=== PATIENT | female | born 1960 | race Hispanic/Latino ===

== ENCOUNTER 2017-06-19 10:21 | Outpatient (CLI) | payer MEDICARE ==
--- NOTE | 2017-06-20 09:14 | Mammography Report ---
BILATERAL MAMMOGRAM: FINDINGS: There are scattered fibroglandular densities (approximately 25%-50% glandular). No mass, distortion, suspicious calcification, or skin change is seen. CAD was utilized. IMPRESSION: Negative mammogram. There is no mammographic evidence of malignancy. RECOMMENDATION: Follow-up per ACS guidelines. BI-RADS CATEGORY: 1 = Negative ACR BI-RADS MAMMOGRAPHIC CODES: 0 = Needs additional imaging evaluation; 1 = Negative; 2 = Benign; 3 = Probably benign; 4 = Suspicious; 5 = Malignant; 6 = Known biopsy-proven malignancy COMMENT: 1. Dense breast tissue, i.e., adenosis, fibrocystic changes, etc., may obscure an underlying neoplasm. 2. Approximately 10% of cancers are not detected with mammography. 3. A negative mammography report should not delay biopsy if a clinically suspicious mass is present. COMMENT: Patient follow-up letters are generated in [employer].
== END 2017-06-19 10:22 | disposition home or self-care (01) ==
LOC: SPVWC 10:21
PROVIDERS: ATTEND Hospitalist
DX: Z12.31 Encounter for screening mammogram for malignant neoplasm of breast (principal)
CPT/HCPCS: 77067

== ENCOUNTER 2020-01-21 23:41 | Inpatient (IN) | payer MEDICARE ==
[2020-01-22 02:34] LABS: Basophils # (Auto) 0.1 K/mm3 (0.0-0.1); Basophils % (Auto) 0.5 % (0.0-1.8); Eosinophils # (Auto) 0.2 K/mm3 (0.0-0.4); Hematocrit 42.7 % (30.3-42.9); Lymphocytes # (Auto) 2.8 K/mm3 (1.2-5.4); Lymphocytes % (Auto) 19.1 % (13.4-35.0); Mean Corpuscular HGB Conc 35 % (30-34); Mean Corpuscular Volume 100 fl (79-97); Monocytes # (Auto) 1.2 K/mm3 (0.0-0.8); Monocytes % (Auto) 8.2 % (0.0-7.3); Platelet Count 188 K/mm3 (140-440); Red Blood Count 4.27 M/mm3 (3.65-5.03); Red Cell Distribution Width 13.3 % (13.2-15.2)
[2020-01-22 02:46] LABS: Alanine Aminotransferase 40 units/L (7-56); Albumin 3.9 g/dL (3.9-5); Blood Urea Nitrogen 17 mg/dL (7-17); Hemolysis Index 9
[2020-01-22 02:48] LABS: BUN/Creatinine Ratio 28
[2020-01-22] MEDS ORDERED: HYDROmorphone 1 MG/1 ML INJ IV ONE ×2 (03:05→05:18)
[2020-01-22] MEDS ORDERED: ONDANSETRON 4 MG/2 ML INJ IV ONE (03:05)
[2020-01-22] MEDS ORDERED: SODIUM CHLORIDE 0.9% 1000 ML 1,000 ML IV ONE (03:05)
--- NOTE | 2020-01-22 03:07 | Emergency Department Report ---
ED General Adult HPI - General Chief complaint: Abdominal Pain Stated complaint: RIGHT FLANK PAIN PUI?: No Time Seen by Provider: 01/22/20 02:57 Source: patient, EMS ( EMS documentation not available at time of chart dict ation ), RN notes reviewed, old records reviewed Mode of arrival: Stretcher Limitations: No Limitations - History of Present Illness Initial comments: The patient was evaluated in the emergency department for symptoms described in the history of present illness. He/she was evaluated in the context of the [facility] COVID-19 pandemic, which necessitated consideration that the patient might be at risk for infection with the virus that causes COVID-19. Institutional protocols and algorithms that pertain to the evaluation of patients at risk for COVID-19 are in a state of rapid change based on information released by regulatory bodies including the CDC and federal and state organizations. These policies and algorithms were followed during the patient's care in the emergency department. Please note that these policies, procedures and recommendations changed on a rapid basis. Patient is a 59-year-old female who is not known to myself previously. She is brought to the hospital by emergency medical services for complaint of nontraumatic abdominal pain. The abdominal pain has been present for appro ximately 6 to 7 hours. Started supraumbilically, then radiated to the right flank, and right back. Positive nausea and vomiting. No headache, neck pain, chest pain. No shortness of breath. No loss of taste or smell. No Covid symptoms. No dysuria. Positive diarrhea. No myalgias. No focal extremity weakness/numbness. She is not had pain like this in the past. Reports a distant history of fibroid surgery. -: Gradual, hour(s) Location: abdomen Radiation: back Quality: aching Consistency: constant Improves with: none Worsens with: none - Related Data Home Medications Medication Instructions Recorded Confirmed Last Taken Amlodipine Besylate 5 mg PO DAILY 07/15/15 07/15/15 07/15/15 Simvastatin 20 mg PO QPM 07/15/15 07/15/15 07/15/15 Venlafaxine HCl 75 mg PO DAILY 07/15/15 07/15/15 07/15/15 Previous Rx's Medication Instructions Recorded Last Taken Type HYDROcodone/APAP 10-325 [[place] 1 each PO Q6HR PRN #20 tablet 07/16/15 Unknown Rx 10-325 mg TAB] Ondansetron [Zofran ODT TAB] 8 mg PO Q8HR PRN #20 tab.rapdis 07/16/15 Unknown Rx Allergies Allergy/AdvReac Type Severity Reaction Status Date / Time No Known Allergies Allergy Unverified 07/15/15 22:25 ED Review of Systems ROS: Stated complaint: RIGHT FLANK PAIN Other details as noted in HPI Constitutional: denies: fever Eyes: denies: eye discharge ENT: denies: epistaxis Respiratory: denies: cough Cardiovascular: denies: chest pain Gastrointestinal: abdominal pain, nausea, vomiting, diarrhea Genitourinary: denies: dysuria Musculoskeletal: back pain Neurological: weakness Psychiatric: anxiety Hematological/Lymphatic: denies: easy bleeding ED Past Medical Hx - Past Medical History Previous Medical History?: Yes Hx Hypertension: Yes Hx Arthritis: Yes Hx COPD: Yes Additional medical history: fibromyalgia - Surgical History Past Surgical History?: Yes Additional Surgical History: Laparoscopic hysterectomy - Social History Smoking Status: Current Every Day Smoker Substance Use Type: None - Medications Home Medications: Home Medications Medication Instructions Recorded Confirmed Last Taken Type Amlodipine Besylate 5 mg PO DAILY 07/15/15 07/15/15 07/15/15 History Simvastatin 20 mg PO QPM 07/15/15 07/15/15 07/15/15 History Venlafaxine HCl 75 mg PO DAILY 07/15/15 07/15/15 07/15/15 History HYDROcodone/APAP 10-325 [[place] 1 each PO Q6HR PRN #20 tablet 07/16/15 Unknown Rx 10-325 mg TAB] Ondansetron [Zofran ODT TAB] 8 mg PO Q8HR PRN #20 tab.rapdis 07/16/15 Unknown Rx ED Physical Exam - General Limitations: No Limitations General appearance: alert, anxious, obese - Head Head exam: Present: atraumatic, normocephalic - Eye Eye exam: Present: normal appearance, EOMI. Absent: nystagmus - ENT ENT exam: Present: normal exam, normal orophraynx, mucous membranes moist, normal external ear exam - Neck Neck exam: Present: normal inspection, full ROM. Absent: tenderness, meningismus - Respiratory Respiratory exam: Present: normal lung sounds bilaterally. Absent: respiratory distress, wheezes, rales, rhonchi, stridor, decreased breath sounds - Cardiovascular Cardiovascular Exam: Present: regular rate, normal rhythm, normal heart sounds. Absent: bradycardia, tachycardia, irregular rhythm, systolic murmur, diastolic murmur, rubs, gallop - GI/Abdominal GI/Abdominal exam: Present: soft, tenderness, other (Right upper quadrant, epigastric tenderness. Right flank tenderness.). Absent: distended, guarding, rebound, rigid, pulsatile mass - Extremities Exam Extremities exam: Present: normal inspection, full ROM, other (2+ pulses noted in the bilateral upper and lower extremities. There is no palpable cord. negative Homans sign. Muscular compartments are soft. The pelvis is stable.). Absent: pedal edema, calf tenderness - Back Exam Back exam: Present: normal inspection. Absent: tenderness, CVA tenderness (R), CVA tenderness (L), paraspinal tenderness, vertebral tenderness - Neurological Exam Neurological exam: Present: alert, normal gait, other (No facial droop. Tongue midline. Extraocular movements intact bilaterally. Facial sensation intact to light touch in V1, V2, V3 distribution bilaterally. 5 and a 5 strength in 4 extremities. Sensation intact to light touch in 4 extremities.). Absent: motor sensory deficit - Psychiatric Psychiatric exam: Present: anxious - Skin Skin exam: Present: warm, dry, intact, normal color. Absent: rash ED Course Vital Signs 01/22/20 01/22/20 01:03 05:13 Temperature 98.1 F Pulse Rate 70 71 Respiratory 18 Rate Blood Pressure 172/65 Blood Pressure 165/82 [right arm] O2 Sat by Pulse 96 95 Oximetry - Reevaluation(s) Reevaluation #1: 01/22/20 03:25 Differential diagnosis, including but not limited to: Colitis, diverticulitis, renal colic, appendicitis Assessment and plan: 59-year-old female with nontraumatic right-sided abdominal pain that radiates to the back. Treat symptoms, obtain urinalysis, EKG, appropriate laboratory studies, CT scan of the abdomen pelvis, and reassess. Do not clinically suspect Covid. Have discussed plan of care with the patient, who is amenable to this plan of care. Reevaluation #2: 01/22/20 05:16 CT scan of the abdomen pelvis shows the following findings: IMPRESSION: 1. Distal small bowel findings suggestive of enteritis. Most of the abnormal bowel loops localized to the right mid abdomen. 2. Right renal finding as outlined above, most likely representing an infarct. One other differential consideration would be polynephritis; however, there is no associated inflammatory stranding and the finding is isolated. If there is high clinical concern, recommend follow-up urinalysis. Signer Name: Derrick Zacarias MD Signed: 01/22/2020 4:07 AM Workstation Name: [id number] Transcribed By: SUZE Dictated By: Derrick Zacarias MD Electronically Authenticated By: Derrick Zacarias MD Signed Date/Time: 01/22/20406 DD/ 1 TD/TT: Urinalysis is not consistent with urinary tract infection. Patient still is fairly tender. Given white count of 14,000, ambiguous clinical findings, will cover empirically with antibiotics. I contacted the interpreting radiologist, Dr. Zacarias, and and he advises that the infarct appears to be chronic. He also advises that CT scan is a better imaging modality than ultrasound. It is my opinion that given tenderness, leukocytosis, clinical ambiguity, nathan bauer would benefit from hospitalization for serial abdominal exams, pain control, nausea control, empiric antibiotic therapy, and further inpatient investigation to evaluate for possible A. fib, arterial thrombi, and potential hypercoagulable state. I have discussed this plan of care with the patient, and she is amenable to hospitalization. Patient not in A. fib at this now. There is a suggestion that the infarct is remote. We will therefore withhold anticoagulation at this time. Hospital physician is paged to arrange admission. 01/22/20 05:27 Dr Brooks to admit inpatient team to follow up on gall bladder ultrasound 01/22/20 05:34 01/22/20 05:34 ED Medical Decision Making - Lab Data Result diagrams: 01/22/20 01:38 01/22/20 01:38 Vital Signs 01/22/20 01:03 Temperature 98.1 F Pulse Rate 70 Respiratory 18 Rate Blood Pressure 172/65 O2 Sat by Pulse 96 Oximetry Lab Results 01/22/20 01/22/20 Range/Units 01:38 01:38 WBC 14.7 H (4.5-11.0) K/mm3 RBC 4.27 (3.65-5.03) M/mm3 Hgb 15.0 H (10.1-14.3) gm/dl Hct 42.7 (30.3-42.9) % MCV 100 H (79-97) fl MCH 35 H (28-32) pg MCHC 35 H (30-34) % RDW 13.3 (13.2-15.2) % Plt Count 188 (140-440) K/mm3 Lymph % (Auto) 19.1 (13.4-35.0) % Knott % (Auto) 8.2 H (0.0-7.3) % Eos % (Auto) 1.0 (0.0-4.3) % Baso % (Auto) 0.5 (0.0-1.8) % Lymph # (Auto) 2.8 (1.2-5.4) K/mm3 Knott # (Auto) 1.2 H (0.0-0.8) K/mm3 Eos # (Auto) 0.2 (0.0-0.4) K/mm3 Baso # (Auto) 0.1 (0.0-0.1) K/mm3 Seg Neutrophils % 71.2 H (40.0-70.0) % Seg Neutrophils # 10.5 H (1.8-7.7) K/mm3 Sodium 142 (137-145) mmol/L Potassium 3.7 (3.6-5.0) mmol/L Chloride 105.2 (98-107) mmol/L Carbon Dioxide 24 (22-30) mmol/L Anion Gap 17 mmol/L BUN 17 (7-17) mg/dL Creatinine 0.6 (0.6-1.2) mg/dL Estimated GFR > 60 ml/min BUN/Creatinine Ratio 28 % Glucose 142 H (65-100) mg/dL Calcium 9.0 (8.4-10.2) mg/dL Total Bilirubin 0.50 (0.1-1.2) mg/dL AST 32 (5-40) units/L ALT 40 (7-56) units/L Alkaline Phosphatase 157 H (35-129) units/L Total Protein 6.5 (6.3-8.2) g/dL Albumin 3.9 (3.9-5) g/dL Albumin/Globulin Ratio 1.5 % Lipase 16 (13-60) units/L - EKG Data -: EKG Interpreted by Me - EKG Data When compared to previous EKG there are: previous EKG unavailable 01/22/20 03:45 Sinus rhythm, 70 bpm, normal axis, motion artifact, poor R wave progression, DC interval prolonged, abnormal EKG, not a STEMI. - Radiology Data Radiology results: pending, report reviewed, image reviewed Print Report Referring Physician: BARBIE RICHARDSON Patient Name: GRAEME MORENO Date of : 1960 Sex: Female Report Date: 2020-01-22 Report Status: Finalized Findings [facility] [address] [place] [address] Cat Scan Report Signed Patient: GRAEME MORENO MR#: [id number] : 1960 Acct:[id number] Age/Sex: 59 / F ADM Date: 01/21/20 Loc: ED Attending Dr: Ordering Physician: BARBIE RICHARDSON MD Date of Service: 01/22/20 Procedure(s): CT abdomen pelvis w con Accession Number(s): [id number] cc: BARBIE RICHARDSON MD CT ABDOMEN AND PELVIS WITH CONTRAST HISTORY: rlq abd pain radiates to back, n/v. COMPARISON: CT abdomen/pelvis from 07/15/2015 TECHNIQUE: CT images of the abdomen and pelvis were obtained following administration of intravenous contrast. All CT scans at this location are performed using CT dose reduction for ALARA by means of automated exposure control. CONTRAST: 100 ml of intravenous contrast administered. FINDINGS: Lungs/bones: Lung bases are clear. There are degenerative changes in the spine and pelvis with no acute osseous abnormality. Bilateral SI joint fixation is intact without complication. Abdomen/pelvis: There is a tiny cyst in the liver. Liver is otherwise unremarkable the gallblad felecia, spleen, pancreas, adrenals, left kidney, and proximal GI tract appear unremarkable. There is a wedge-shaped area of low attenuation in the right kidney in the midpole region with otherwise unremarkable appearance of the right kidney. Urinary bladder is mostly collapsed. Uterus is surgically absent. No pelvic free fluid. There is colonic diverticulosis with no acute inflammatory change identified. The appendix and terminal ileum appear normal. There is mild circumferential wall thickening and fluid-filled appearance of the distal small bowel leading up to the terminal ileum and the proximal colon is filled with liquid stool. IMPRESSION: 1. Distal small bowel findings suggestive of enteritis. Most of the abnormal bowel loops localized to the right mid abdomen. 2. Right renal finding as outlined above, most likely representing an infarct. One other differential consideration would be polynephritis; however, there is no associated inflammatory stranding and the finding is isolated. If there is high clinical concern, recommend follow-up urinalysis. Signer Name: Derrick Zacarias MD Signed: 01/22/2020 4:07 AM Workstation Name: [id number] Transcribed By: SUZE Dictated By: Derrick Zacarias MD Electronically Authenticated By: Derrick Zacarias MD Signed Date/Time: 01/22/20406 DD/ 1 TD/TT: Critical care attestation.: If time is entered above; I have spent that time in minutes in the direct care of this critically ill patient, excluding procedure time. ED Disposition Clinical Impression: Flank pain, Renal infarct Disposition: OP ADMIT IP TO THIS HOSP Is pt being admited?: Yes Does the pt Need Aspirin: No Condition: Good Instructions: Abdominal Pain (ED) Referrals: PRIMARY CARE, [Primary Care Provider] - 3-5 Days
--- NOTE | 2020-01-22 04:11 | Cat Scan Report ---
CT ABDOMEN AND PELVIS WITH CONTRAST HISTORY: rlq abd pain radiates to back, n/v. COMPARISON: CT abdomen/pelvis from 07/15/2015 TECHNIQUE: CT images of the abdomen and pelvis were obtained following administration of intravenous contrast. All CT scans at this location are performed using CT dose reduction for ALARA by means of automated exposure control. CONTRAST: 100 ml of intravenous contrast administered. FINDINGS: Lungs/bones: Lung bases are clear. There are degenerative changes in the spine and pelvis with no ac kyaw osseous abnormality. Bilateral SI joint fixation is intact without complication. Abdomen/pelvis: There is a tiny cyst in the liver. Liver is otherwise unremarkable the gallbladder, spleen, pancreas, adrenals, left kidney, and proximal GI tract appear unremarkable. There is a wedge-shaped area of low attenuation in the right kidney in the midpole region with otherw ise unremarkable appearance of the right kidney. Urinary bladder is mostly collapsed. Uterus is surgically absent. No pelvic free fluid. There is colo rodrigo diverticulosis with no acute inflammatory change identified. The appendix and terminal ileum appe ar normal. There is mild circumferential wall thickening and fluid-filled appearance of the distal small bowel l eading up to the terminal ileum and the proximal colon is filled with liquid stool. IMPRESSION: 1. Distal small bowel findings suggestive of enteritis. Most of the abnormal bowel loops localized to the right mid abdomen. 2. Right renal finding as outlined above, most likely representing an infarct. One other differential consideration would be polynephritis; however, there is no associated inflammatory stranding and the finding is isolated. If there is high clinical concern, recommend follow-up urinalysis. Signer Name: Derrick Zacarias MD Signed: 01/22/2020 4:07 AM Workstation Name: [id number]
[2020-01-22 04:53] LABS: Bacteria,Urine 1+ /HPF (Negative); Bilirubin,Urine NEG (Negative); Blood,Urine NEG (Negative); Color,Urine Yellow (Yellow); Mucus,Urine 1+ /HPF; Urobilinogen,Urine < 2.0 mg/dL (<2.0)
[2020-01-22] MEDS ORDERED: ACETAMINOPHEN 325 MG TAB PO PRN (05:47)
[2020-01-22] MEDS ORDERED: MAGNESIUM HYDROXIDE (MOM) ORAL LIQD UDC PO PRN (05:47)
--- NOTE | 2020-01-22 06:39 | History and Physical Report ---
History of Present Illness Date of examination: 01/22/20 Date of admission: 01/22/20 05:28 Chief complaint: Abdominal pain Nausea and Vomiting History of present illness: 59-year-old white female with known history of hypertension, hyperlipidemia, COPD and fibromyalgia presenting to the emergency room today complaining of generalized abdominal pain. Pain started about 6 to 8 hours prior to reporting to the emergency room. Pain is said to be more in the right upper quadrant radiating to the right flank and the back. She has had associated nausea and vomiting and also had an episode of diarrhea. She has had multiple episodes of nausea and vomiting today. She denies any fever or chills, no chest pain or shortness of breath, no headache or dizziness, no hematuria or dysuria, denies any sick contacts and no recent travel. Denies any contact with anyone with COVID-19. Work-up in the emergency room today reveals leukocytosis of 14. CT of the abdomen and pelvis was remarkable for right renal infarction. Patient has been placed on IV fluid and IV analgesic medication with improvement. Patient is being admitted for intractable nausea and vomiting and abdominal pain. Past History Past Medical History: arthritis, COPD, hypertension, hyperlipidemia, other (Fibromyalgia) Past Surgical History: hysterectomy (Laparoscopic hysterectomy) Social history: smoking (Current daily smoker) Family history: no significant family history Medications and Allergies Allergies Allergy/AdvReac Type Severity Reaction Status Date / Time No Known Allergies Allergy Unverified 07/15/15 22:25 Home Medications Medication Instructions Recorded Confirmed Last Taken Type Amlodipine Besylate 5 mg PO DAILY 07/15/15 07/15/15 07/15/15 History Simvastatin 20 mg PO QPM 07/15/15 07/15/15 07/15/15 History Venlafaxine HCl 75 mg PO DAILY 07/15/15 07/15/15 07/15/15 History HYDROcodone/APAP 10-325 [[place] 1 each PO Q6HR PRN #20 tablet 07/16/15 Unknown Rx 10-325 mg TAB] Ondansetron [Zofran ODT TAB] 8 mg PO Q8HR PRN #20 tab.rapdis 07/16/15 Unknown Rx Active Meds: Active Medications Acetaminophen (Tylenol) 650 mg PO Q4H PRN PRN Reason: Pain MILD(1-3)/Fever >100.5/RUCKER Enoxaparin Sodium (Enoxaparin) 40 mg SUB-Q QDAY@2200 ANDRA; Protocol Hydromorphone HCl (Dilaudid) 0.5 mg IV Q3H PRN PRN Reason: Pain , Severe (7-10) Levofloxacin/Dextrose (Levaquin 750mg/150ml) 750 mg in 150 mls @ 100 mls/hr IV ONCE ONE; Protocol Stop: 01/22/20 06:47 Sodium Chloride (Nacl 0.9% 1000 Ml) 1,000 mls @ 125 mls/hr IV DIRECT ANDRA Magnesium Hydroxide (Milk Of Magnesia) 30 ml PO Q4H PRN PRN Reason: Constipation Ondansetron HCl (Zofran) 4 mg IV Q8H PRN PRN Reason: Nausea And Vomiting Sodium Chloride (Sodium Chloride Flush Syringe 10 Ml) 10 ml IV BID ANDRA Sodium Chloride (Sodium Chloride Flush Syringe 10 Ml) 10 ml IV PRN PRN PRN Reason: LINE FLUSH Review of Systems Constitutional: no fever, no chills Ears, nose, mouth and throat: no nasal congestion, no sore throat Cardiovascular: no chest pain, no palpitations Respiratory: no cough, no shortness of breath Gastrointestinal: abdominal pain, nausea, vomiting, diarrhea, no hematemesis, no coffee ground emesis, no BRBPR, no melena Genitourinary Female: no flank pain, no dysuria, no hematuria Musculoskeletal: no neck pain, no low back pain Integumentary: no rash, no pruritis Neurological: no headaches, no confusion Psychiatric: no anxiety, no depression Exam - Constitutional Vitals: Temp Pulse Resp BP Pulse Ox 98.1 F 71 18 165/82 95 01/22/20 01:03 01/22/20 05:13 01/22/20 01:03 01/22/20 05:13 01/22/20 05:13 General appearance: Present: no acute distress, well-nourished - EENT Eyes: Present: PERRL, EOM intact. Absent: scleral icterus ENT: hearing intact, clear oral mucosa, dentition normal - Neck Neck: Present: supple, normal ROM - Respiratory Respiratory effort: normal Respiratory: bilateral: CTA - Cardiovascular Rhythm: regular Heart Sounds: Present: S1 & S2. Absent: gallop, systolic murmur, diastolic murmur, rub - Extremities Extremities: no ischemia, pulses intact, pulses symmetrical, No edema, Full ROM - Abdominal General gastrointestinal: Present: soft, tender (Mild tenderness in the epigastric region and right upper quadrant, no rebound tenderness), non-disten ded, normal bowel sounds. Absent: mass - Integumentary Integumentary: Present: clear, warm, dry - Musculoskeletal Musculoskeletal: strength equal bilaterally - Psychiatric Psychiatric: appropriate mood/affect, intact judgment & insight, memory intact, cooperative - Neurologic Neurologic: CNII-XII intact, no focal deficits, moves all extremities Results - Labs CBC & Chem 7: 01/22/20 21:17 01/22/20 01:38 Labs: Abnormal lab results 01/22/20 01/22/20 Range/Units 01:38 01:38 WBC 14.7 H (4.5-11.0) K/mm3 Hgb 15.0 H (10.1-14.3) gm/dl MCV 100 H (79-97) fl MCH 35 H (28-32) pg MCHC 35 H (30-34) % Bertie % (Auto) 8.2 H (0.0-7.3) % Bertie # (Auto) 1.2 H (0.0-0.8) K/mm3 Seg Neutrophils % 71.2 H (40.0-70.0) % Seg Neutrophils # 10.5 H (1.8-7.7) K/mm3 Glucose 142 H (65-100) mg/dL Alkaline Phosphatase 157 H (35-129) units/L Assessment and Plan - Patient Problems (1) Abdominal pain Current Visit: Yes Status: Acute Plan to address problem: Unclear etiology is unknown. Patient has been placed on IV analgesic medication. CT scan of the abdomen and pelvis however reveals right renal infarction. Patient awaits ultrasound of the gallbladder. (2) Hypertension Current Visit: Yes Status: Acute Plan to address problem: We will resume routine home medications once reconciled. Will monitor vital signs closely. (3) Renal infarct Current Visit: Yes Status: Acute Plan to address problem: If no improvement ,May require follow-up with radiological tests. Patient may benefit from vascular surgery/nephrology evaluation and recommendation. (4) Leukocytosis Current Visit: Yes Status: Acute Plan to address problem: Possibly reactive however patient is being covered with empiric IV antibiotics. (5) DVT prophylaxis Current Visit: Yes Status: Acute Plan to address problem: Patient placed on subcutaneous Lovenox. (6) Full code status Current Visit: Yes Status: Acute
[2020-01-22] MEDS ORDERED: SODIUM CHLORIDE 0.9% 1000 ML 1,000 ML ONE ×2 (06:40→20:11)
--- NOTE | 2020-01-22 07:27 | Ultrasound Report ---
LIMITED RUQ ABDOMINAL ULTRASOUND INDICATION: ruq pain. COMPARISON: CT abdomen/pelvis from today. FINDINGS: Pancreas: Visualized portions show no significant abnormality. Abdominal Aorta: No significant abnormality. IVC: No significant abnormality. Liver: The liver measures 17.2 cm in length. Diffusely echogenic compared to the right renal cortex. Normal hepatopedal blood flow in the main portal vein. Gallbladder: No significant abnormality. Bile ducts: No significant abnormality. Common bile duct measures 3 mm. Right kidney: No significant abnormality visualized. Please note that the probable infarction CT is n ot well visualized with ultrasound. Free fluid: None. Additional Findings: None. IMPRESSION: 1. Hepatomegaly with diffusely echogenic appearance of the liver, most commonly seen with steatosis. Signer Name: Derrick Zacarias MD Signed: 01/22/2020 7:23 AM Workstation Name: [id number]
--- NOTE | 2020-01-22 09:07 | Progress Note ---
Assessment and Plan Assessment and plan: Abdominal pain Unclear etiology is unknown. GI consultation. CT scan of the abdomen and pelvis however reveals right renal infarction. Patient awaits ultrasound of the gallbladder. Hypertension We will resume routine home medications once reconciled. Will monitor vital signs closely. Renal infarct May require follow-up with radiological exam. Nephrology consultation. Leukocytosis Possibly reactive however patient is being covered with empiric IV antibiotics. DVT prophylaxis Patient placed on subcutaneous Lovenox. Full code status History Interval history: No new issues overnight. Hospitalist Physical - Constitutional Vitals: Temp Pulse Resp BP Pulse Ox 98.6 F 71 18 154/64 90 01/22/20 07:59 01/22/20 07:59 01/22/20 07:59 01/22/20 07:59 01/22/20 07:59 General appearance: Present: no acute distress, well-nourished - EENT Eyes: Present: PERRL, EOM intact ENT: hearing intact, clear oral mucosa, dentition normal - Neck Neck: Present: supple, normal ROM - Respiratory Respiratory effort: normal Respiratory: bilateral: CTA - Cardiovascular Rhythm: regular Heart Sounds: Present: S1 & S2. Absent: gallop, rub - Extremities Extremities: no ischemia, No edema, Full ROM - Abdominal General gastrointestinal: soft, non-tender, non-distended, normal bowel sounds - Integumentary Integumentary: Present: clear, warm, dry - Neurologic Neurologic: CNII-XII intact, moves all extremities Results - Labs CBC & Chem 7: 01/22/20 01:38 01/22/20 01:38 Labs: Laboratory Last Values WBC 14.7 K/mm3 (4.5-11.0) H 01/22/20 01:38 RBC 4.27 M/mm3 (3.65-5.03) 01/22/20 01:38 Hgb 15.0 gm/dl (10.1-14.3) H 01/22/20 01:38 Hct 42.7 % (30.3-42.9) 01/22/20 01:38 MCV 100 fl (79-97) H 01/22/20 01:38 MCH 35 pg (28-32) H 01/22/20 01:38 MCHC 35 % (30-34) H 01/22/20 01:38 RDW 13.3 % (13.2-15.2) 01/22/20 01:38 Plt Count 188 K/mm3 (140-440) 01/22/20 01:38 Lymph % (Auto) 19.1 % (13.4-35.0) 01/22/20 01:38 [place] % (Auto) 8.2 % (0.0-7.3) H 01/22/20 01:38 Eos % (Auto) 1.0 % (0.0-4.3) 01/22/20 01:38 Baso % (Auto) 0.5 % (0.0-1.8) 01/22/20 01:38 Lymph # (Auto) 2.8 K/mm3 (1.2-5.4) 01/22/20 01:38 [place] # (Auto) 1.2 K/mm3 (0.0-0.8) H 01/22/20 01:38 Eos # (Auto) 0.2 K/mm3 (0.0-0.4) 01/22/20 01:38 Baso # (Auto) 0.1 K/mm3 (0.0-0.1) 01/22/20 01:38 Seg Neutrophils % 71.2 % (40.0-70.0) H 01/22/20 01:38 Seg Neutrophils # 10.5 K/mm3 (1.8-7.7) H 01/22/20 01:38 Sodium 142 mmol/L (137-145) 01/22/20 01:38 Potassium 3.7 mmol/L (3.6-5.0) 01/22/20 01:38 Chloride 105.2 mmol/L (98-107) 01/22/20 01:38 Carbon Dioxide 24 mmol/L (22-30) 01/22/20 01:38 Anion Gap 17 mmol/L 01/22/20 01:38 BUN 17 mg/dL (7-17) 01/22/20 01:38 Creatinine 0.6 mg/dL (0.6-1.2) 01/22/20 01:38 Estimated GFR > 60 ml/min 01/22/20 01:38 BUN/Creatinine Ratio 28 % 01/22/20 01:38 Glucose 142 mg/dL (65-100) H 01/22/20 01:38 Lactic Acid 1.70 mmol/L (0.7-2.0) 01/22/20 04:43 Calcium 9.0 mg/dL (8.4-10.2) 01/22/20 01:38 Magnesium 2.00 mg/dL (1.7-2.3) 01/22/20 01:38 Total Bilirubin 0.50 mg/dL (0.1-1.2) 01/22/20 01:38 AST 32 units/L (5-40) 01/22/20 01:38 ALT 40 units/L (7-56) 01/22/20 01:38 Alkaline Phosphatase 157 units/L (35-129) H 01/22/20 01:38 Total Creatine Kinase 70 units/L (30-135) 01/22/20 01:38 Total Protein 6.5 g/dL (6.3-8.2) 01/22/20 01:38 Albumin 3.9 g/dL (3.9-5) 01/22/20 01:38 Albumin/Globulin Ratio 1.5 % 01/22/20 01:38 Lipase 16 units/L (13-60) 01/22/20 01:38 Urine Color Yellow (Yellow) 01/22/20 04:37 Urine Turbidity Clear (Clear) 01/22/20 04:37 Urine pH 5.0 (5.0-7.0) 01/22/20 04:37 Ur Specific [place] 1.008 (1.003-1.030) 01/22/20 04:37 Urine Protein 30 mg/dl mg/dL (Negative) 01/22/20 04:37 Urine Glucose (UA) Neg mg/dL (Negative) 01/22/20 04:37 Urine Ketones Neg mg/dL (Negative) 01/22/20 04:37 Urine Blood Neg (Negative) 01/22/20 04:37 Urine Nitrite Neg (Negative) 01/22/20 04:37 Urine Bilirubin Neg (Negative) 01/22/20 04:37 Urine Urobilinogen < 2.0 mg/dL (<2.0) 01/22/20 04:37 Ur Leukocyte Esterase Neg (Negative) 01/22/20 04:37 Urine WBC (Auto) 2.0 /HPF (0.0-6.0) 01/22/20 04:37 Urine RBC (Auto) 5.0 /HPF (0.0-6.0) 01/22/20 04:37 U Epithel Cells (Auto) 3.0 /HPF (0-13.0) 01/22/20 04:37 Urine Bacteria (Auto) 1+ /HPF (Negative) 01/22/20 04:37 Urine Mucus 1+ /HPF 01/22/20 04:37 Microbiology: Microbiology 01/22/20 04:43 Peripheral/Venous Blood Culture - Preliminary Culture in Progress 01/22/20 04:35 Peripheral/Venous Blood Culture - Preliminary Culture in Progress Active Medications - Current Medications Current Medications: Generic Name Dose Route Start Last Admin Trade Name Freq PRN Reason Stop Dose Admin Acetaminophen 650 mg 01/22/20 05:47 Tylenol PO Q4H PRN Pain MILD(1-3)/Fever >100.5/RUCKER Enoxaparin Sodium 40 mg 01/22/20 22:00 Enoxaparin SUB-Q QDAY@2200 ANDRA Protocol Hydromorphone HCl 0.5 mg 01/22/20 05:47 Dilaudid IV Q3H PRN Pain , Severe (7-10) Sodium Chloride 1,000 mls @ 125 mls/hr 01/22/20 06:00 Nacl 0.9% 1000 Ml IV DIRECT [facility] Magnesium Hydroxide 30 ml 01/22/20 05:47 Milk Of Magnesia PO Q4H PRN Constipation Ondansetron HCl 4 mg 01/22/20 05:47 Zofran IV Q8H PRN Nausea And Vomiting Sodium Chloride 10 ml 01/22/20 10:00 Sodium Chloride Flush Syringe 10 Ml IV BID ANDRA Sodium Chloride 10 ml 01/22/20 05:47 Sodium Chloride Flush Syringe 10 Ml IV PRN PRN LINE FLUSH
[2020-01-22] MEDS: HYDROmorphone 1 MG/1 ML INJ IV PRN ×2 (10:11→21:45)
[2020-01-22] MEDS: SODIUM CHLORIDE 0.9% 1000 ML 1,000 ML IV SCH ×2 (10:14→20:14)
--- NOTE | 2020-01-22 11:52 | Gastroenterology Consultation ---
History of Present Illness - Reason for Consult Consult date: 01/22/20 abdominal pain Requesting physician: VALENTINE JONES - History of Present Illness The patient is a 59 yo wf who presents with new/sudden onset abd pain with n/v x 1 day. Pt was riding in truck when she developed sudden right sided abd pain radiating to right side of her back. This was associated with n/v episodes and loose stools. No prior similar gi symptoms. Pain mostly unchanged since onset. Had 2 loose bm's this morning. Denies gi bleeding. ct scan on admission showed signs of renal infarct, and distal small bowel enteritis. Past History Past Medical History: arthritis, COPD, hypertension, hyperlipidemia, other (Fibromyalgia) Past Surgical History: hysterectomy (Laparoscopic hysterectomy) Social history: smoking (Current daily smoker) Family history: no significant family history Medications and Allergies Allergies Allergy/AdvReac Type Severity Reaction Status Date / Time No Known Allergies Allergy Unverified 07/15/15 22:25 Home Medications Medication Instructions Recorded Confirmed Last Taken Type Amlodipine Besylate 5 mg PO DAILY 07/15/15 07/15/15 07/15/15 History Simvastatin 20 mg PO QPM 07/15/15 07/15/15 07/15/15 History Venlafaxine HCl 75 mg PO DAILY 07/15/15 07/15/15 07/15/15 History HYDROcodone/APAP 10-325 [[place] 1 each PO Q6HR PRN #20 tablet 07/16/15 Unknown Rx 10-325 mg TAB] Ondansetron [Zofran ODT TAB] 8 mg PO Q8HR PRN #20 tab.rapdis 07/16/15 Unknown Rx Active Meds: Active Medications Acetaminophen (Tylenol) 650 mg PO Q4H PRN PRN Reason: Pain MILD(1-3)/Fever >100.5/RUCKER Enoxaparin Sodium (Enoxaparin) 40 mg SUB-Q QDAY@2200 ANDRA; Protocol Hydromorphone HCl (Dilaudid) 0.5 mg IV Q3H PRN PRN Reason: Pain , Severe (7-10) Last Admin: 01/22/20 10:11 Dose: 0.5 mg Documented by: Sodium Chloride (Nacl 0.9% 1000 Ml) 1,000 mls @ 125 mls/hr IV DIRECT ANDRA Last Admin: 01/22/20 10:14 Dose: 125 mls/hr Documented by: Magnesium Hydroxide (Milk Of Magnesia) 30 ml PO Q4H PRN PRN Reason: Constipation Ondansetron HCl (Zofran) 4 mg IV Q8H PRN PRN Reason: Nausea And Vomiting Sodium Chloride (Sodium Chloride Flush Syringe 10 Ml) 10 ml IV BID ANDRA Last Admin: 01/22/20 10:17 Dose: 10 ml Documented by: Sodium Chloride (Sodium Chloride Flush Syringe 10 Ml) 10 ml IV PRN PRN PRN Reason: LINE FLUSH Reviewed/updated patient's home and current medications Review of Systems - Review of Systems All systems: negative (per HPI) Exam - Constitutional Vital Signs: Temp Pulse Resp BP Pulse Ox 98.6 F 71 18 154/64 90 01/22/20 07:59 01/22/20 07:59 01/22/20 07:59 01/22/20 07:59 01/22/20 07:59 General appearance: no acute distress - EENT Eyes: PERRL, EOM intact - Respiratory Respiratory effort: normal Respiratory: bilateral: CTA - Cardiovascular Rhythm: regular Heart Sounds: Present: S1 & S2 Extremities: No edema - Gastrointestinal General gastrointestinal: Present: soft, tender (right and mid abd ttp), non- distended - Neurologic Neurological: alert and oriented x3 - Psychiatric Psychiatric: appropriate mood/affect - Labs CBC & Chem 7: 01/22/20 01:38 01/22/20 01:38 Lab Results: Laboratory Results - last 24 hr 01/22/20 01/22/20 01/22/20 01:38 01:38 01:38 WBC 14.7 H RBC 4.27 Hgb 15.0 H Hct 42.7 MCV 100 H MCH 35 H MCHC 35 H RDW 13.3 Plt Count 188 Lymph % (Auto) 19.1 [place] % (Auto) 8.2 H Eos % (Auto) 1.0 Baso % (Auto) 0.5 Lymph # (Auto) 2.8 [place] # (Auto) 1.2 H Eos # (Auto) 0.2 Baso # (Auto) 0.1 Seg Neutrophils % 71.2 H Seg Neutrophils # 10.5 H Sodium 142 Potassium 3.7 Chloride 105.2 Carbon Dioxide 24 Anion Gap 17 BUN 17 Creatinine 0.6 Estimated GFR > 60 BUN/Creatinine Ratio 28 Glucose 142 H Lactic Acid Calcium 9.0 Magnesium 2.00 Total Bilirubin 0.50 AST 32 ALT 40 Alkaline Phosphatase 157 H Total Creatine Kinase 70 Total Protein 6.5 Albumin 3.9 Albumin/Globulin Ratio 1.5 Lipase 16 Urine Color Urine Turbidity Urine pH Ur Specific [place] Urine Protein Urine Glucose (UA) Urine Ketones Urine Blood Urine Nitrite Urine Bilirubin Urine Urobilinogen Ur Leukocyte Esterase Urine WBC (Auto) Urine RBC (Auto) U Epithel Cells (Auto) Urine Bacteria (Auto) Urine Mucus 01/22/20 01/22/20 04:37 04:43 WBC RBC Hgb Hct MCV MCH MCHC RDW Plt Count Lymph % (Auto) [place] % (Auto) Eos % (Auto) Baso % (Auto) Lymph # (Auto) [place] # (Auto) Eos # (Auto) Baso # (Auto) Seg Neutrophils % Seg Neutrophils # Sodium Potassium Chloride Carbon Dioxide Anion Gap BUN Creatinine Estimated GFR BUN/Creatinine Ratio Glucose Lactic Acid 1.70 Calcium Magnesium Total Bilirubin AST ALT Alkaline Phosphatase Total Creatine Kinase Total Protein Albumin Albumin/Globulin Ratio Lipase Urine Color Yellow Urine Turbidity Clear Urine pH 5.0 Ur Specific [place] 1.008 Urine Protein 30 mg/dl Urine Glucose (UA) Neg Urine Ketones Neg Urine Blood Neg Urine Nitrite Neg Urine Bilirubin Neg Urine Urobilinogen < 2.0 Ur Leukocyte Esterase Neg Urine WBC (Auto) 2.0 Urine RBC (Auto) 5.0 U Epithel Cells (Auto) 3.0 Urine Bacteria (Auto) 1+ Urine Mucus 1+ - Imaging CT Scan: report reviewed Assessment and Plan 1. Abd pain with associated n/v/diarrhea 2. Renal infarct -new onset abd pain, mostly right sided , unclear if this is related to renal infarct vs other etiology. ? enteritis of unclear significance. lactate normal. however, given degree of pain and sudden onset, will obtain cta of abd to rule out vascular/ischemic process. discussed with primary/Dr Jones.
--- NOTE | 2020-01-22 11:57 | Consultation ---
History of Present Illness - History of Present Illness Thank you for the consultation Patient was evaluated today My assessment and plan are as follows abnormal CT scan of the kidneys in a 59-year-old patient who is smoker has a history of hyperlipidemia it has been reported as renal infarct quite likely it could be atherosclerotic plaque that she may have, but need to rule out possibility of urinary tract infection first. Suggest obtaining a vascular/intervention radiology consultation with Dr. Suárez/ [facility], I have taken the liberty to invite them. I doubt that she does have hypercoagulable state at this time I recommend lifestyle changes modifying risk factors controlling cholesterol quitting smoking altogether and aspirin 81 mg once a day for now To complete the workup she will need to see a cobol mainframe developer to make sure that this is not atheroembolic disease from elsewhere or any embolic phenomena, she will also need to see hematology in the outpatient setting to rule out any possibility of any hypercoagulable disorder Patient was adequately counseled educated regarding all the renal related issuesAll questions were answered advised to work on lifestyle quitting smoking obtaining excellent lipid control lose weight etc. Need to rule out any possibility of urinary tract infection and empiric antibiot ic We will need to make an appointment follow-up in the office upon discharge in 1- 2 week Author: Candelario Alicea M.D. [facility], [address] [place] [address] Tel; [phone] Source of information: From patient History of present illness 59-year-old female who is a very poor historian has been admitted here with somewhat acute onset of abdominal pain nausea vomiting diarrhea, CT scan showed evidence of enteritis and possible pyelonephritis or renal infarct. Patient does have a history of long-term smoking as well as hyperlipidemia, denies having used any form of recreational drugs including cocaine etc. She does not have any history of fever or chills, no history of any spots of bruising in her hands or feet, no visual disturbances no palpitations chest pain no prior history of any lupus, no history of any clotting disorder no family history of any bleeding or clotting disorder either Past medical history: hypertension Hyperlipidemia COPD Arthritis Fibromyalgia Current allergies: Reviewed from the current chart Social history: Reviewed from the current chart Family history: Reviewed from the current chart Review of system: Positive for abdominal pain nausea vomiting diarrhea All other review of systems negative Physical examination Vitals: Reviewed General: No acute distress HEENT: Oral mucosa moist no pallor or icterus Neck: Supple without any JVD thyromegaly or nodular mass Chest: Clear to auscultation Heart: Regular rate and rhythm S1-S2 heard no S3-S4 Abdomen: Soft nontender, bowel sounds present no renal bruit no suprapubic masses no CVA tenderness noted Extremity: Minimal edema dry skin no peripheral cyanosis Endocrine: Thyroid not enlarged Psychiatric: No agitation and aggression noted Musculoskeletal: No joint effusion noted Labs and x-rays: Reviewed from this admission Past History Past Medical History: arthritis, COPD, hypertension, hyperlipidemia, other (Fibromyalgia) Past Surgical History: hysterectomy (Laparoscopic hysterectomy) Social history: smoking (Current daily smoker) Family history: no significant family history Medications and Allergies Allergies Allergy/AdvReac Type Severity Reaction Status Date / Time No Known Allergies Allergy Unverified 07/15/15 22:25 Home Medications Medication Instructions Recorded Confirmed Last Taken Type Amlodipine Besylate 5 mg PO DAILY 07/15/15 07/15/15 07/15/15 History Simvastatin 20 mg PO QPM 07/15/15 07/15/15 07/15/15 History Venlafaxine HCl 75 mg PO DAILY 07/15/15 07/15/15 07/15/15 History HYDROcodone/APAP 10-325 [[place] 1 each PO Q6HR PRN #20 tablet 07/16/15 Unknown Rx 10-325 mg TAB] Ondansetron [Zofran ODT TAB] 8 mg PO Q8HR PRN #20 tab.rapdis 07/16/15 Unknown Rx Active Meds: Active Medications Acetaminophen (Tylenol) 650 mg PO Q4H PRN PRN Reason: Pain MILD(1-3)/Fever >100.5/RUCKER Enoxaparin Sodium (Enoxaparin) 40 mg SUB-Q QDAY@2200 ANDRA; Protocol Hydromorphone HCl (Dilaudid) 0.5 mg IV Q3H PRN PRN Reason: Pain , Severe (7-10) Last Admin: 01/22/20 10:11 Dose: 0.5 mg Documented by: Sodium Chloride (Nacl 0.9% 1000 Ml) 1,000 mls @ 125 mls/hr IV DIRECT ANDRA Last Admin: 01/22/20 10:14 Dose: 125 mls/hr Documented by: Magnesium Hydroxide (Milk Of Magnesia) 30 ml PO Q4H PRN PRN Reason: Constipation Ondansetron HCl (Zofran) 4 mg IV Q8H PRN PRN Reason: Nausea And Vomiting Sodium Chloride (Sodium Chloride Flush Syringe 10 Ml) 10 ml IV BID ANDRA Last Admin: 01/22/20 10:17 Dose: 10 ml Documented by: Sodium Chloride (Sodium Chloride Flush Syringe 10 Ml) 10 ml IV PRN PRN PRN Reason: LINE FLUSH Exam - Vital Signs Vital signs: Vital Signs Temp Pulse Resp BP Pulse Ox 98.1 F 70 18 172/65 96 01/22/20 01:03 01/22/20 01:03 01/22/20 01:03 01/22/20 01:03 01/22/20 01:03 Results - Lab Results 01/22/20 01:38 01/22/20 01:38 Most recent lab results Calcium 9.0 mg/dL (8.4-10.2) 01/22/20 01:38 Magnesium 2.00 mg/dL (1.7-2.3) 01/22/20 01:38
--- NOTE | 2020-01-22 16:47 | Consultation ---
History of Present Illness - Reason for Consult Consult date: 01/22/20 renal infarct Requesting physician: SPRING CASTRO - History of Present Illness 59-year-old white female with known history of hypertension, hyperlipidemia, COPD and fibromyalgia presenting to the emergency room today complaining of generalized abdominal pain. Pain started about 6 to 8 hours prior to reporting to the emergency room. Pain is said to be more in the right upper quadrant radiating to the right flank and the back. She has had associated nausea and vomiting and also had an episode of diarrhea. She has had multiple episodes of nausea and vomiting today. She denies any fever or chills, no chest pain or shortness of breath, no headache or dizziness, no hematuria or dysuria, denies any sick contacts and no recent travel. Denies any contact with anyone with COVID-19. Work-up in the emergency room today reveals leukocytosis of 14. CT of the abdomen and pelvis was remarkable for right renal infarction. Patient has been placed on IV fluid and IV analgesic medication with im provement. Patient is being admitted for intractable nausea and vomiting and abdominal pain. Vascular was consulted for evaluation for renal infarct. Upon my review of the CT scan, I was about the constellation of findings of a renal infarct in the setting of enteritis and suspected there may be a SMA thrombus due to an arterial showering event. Emergency CT angiogram of the abdomen pelvis was ordered, demonstrating a distal SMA thrombus. The patient reported that she has had severe right lower quadrant pain out of proportion since yesterday. Although there is significant right lower quadrant pain, she has no rebound at this time. She has palpable dorsalis pedis pulses bilaterally. She denies lower extremity pain or upper extremity pain. Palpable left radial and ulnar pulse. Past History Past Medical History: arthritis, COPD, hypertension, hyperlipidemia, other (Fibromyalgia) Past Surgical History: hysterectomy (Laparoscopic hysterectomy) Social history: smoking (Current daily smoker) Family history: no significant family history Medications and Allergies Allergies Allergy/AdvReac Type Severity Reaction Status Date / Time No Known Allergies Allergy Unverified 07/15/15 22:25 Home Medications Medication Instructions Recorded Confirmed Last Taken Type Amlodipine Besylate 5 mg PO DAILY 07/15/15 07/15/15 07/15/15 History Simvastatin 20 mg PO QPM 07/15/15 07/15/15 07/15/15 History Venlafaxine HCl 75 mg PO DAILY 07/15/15 07/15/15 07/15/15 History HYDROcodone/APAP 10-325 [[place] 1 each PO Q6HR PRN #20 tablet 07/16/15 Unknown Rx 10-325 mg TAB] Ondansetron [Zofran ODT TAB] 8 mg PO Q8HR PRN #20 tab.rapdis 07/16/15 Unknown Rx Active Meds: Active Medications Acetaminophen (Tylenol) 650 mg PO Q4H PRN PRN Reason: Pain MILD(1-3)/Fever >100.5/RUCKER Enoxaparin Sodium (Enoxaparin) 40 mg SUB-Q QDAY@2200 ANDRA; Protocol Heparin Protocol (Heparin No Bolus) 1 each IV ONCE ONE Stop: 01/22/20 16:43 Hydromorphone HCl (Dilaudid) 0.5 mg IV Q3H PRN PRN Reason: Pain , Severe (7-10) Last Admin: 01/22/20 10:11 Dose: 0.5 mg Documented by: Sodium Chloride (Nacl 0.9% 1000 Ml) 1,000 mls @ 125 mls/hr IV DIRECT ANDRA Last Admin: 01/22/20 10:14 Dose: 125 mls/hr Documented by: Levofloxacin/Dextrose (Levaquin 500mg/100ml) 500 mg in 100 mls @ 100 mls/hr IV Q24HR ANDRA Heparin Sodium/Sodium Chloride (Heparin/ 0.45% Nacl-25,000 Unit/500 Ml) 25,000 unit in 500 mls @ 29.801 mls/hr IV TITR ANDRA; Protocol Magnesium Hydroxide (Milk Of Magnesia) 30 ml PO Q4H PRN PRN Reason: Constipation Ondansetron HCl (Zofran) 4 mg IV Q8H PRN PRN Reason: Nausea And Vomiting Sodium Chloride (Sodium Chloride Flush Syringe 10 Ml) 10 ml IV BID ANDRA Last Admin: 01/22/20 10:17 Dose: 10 ml Documented by: Sodium Chloride (Sodium Chloride Flush Syringe 10 Ml) 10 ml IV PRN PRN PRN Reason: LINE FLUSH Review of Systems All systems: negative (SEE HPI) Exam - Constitutional Vitals: Temp Pulse Resp BP Pulse Ox 98.0 F 70 18 135/56 90 01/22/20 11:26 01/22/20 11:26 01/22/20 11:26 01/22/20 11:26 01/22/20 11:26 General appearance: Present: severe distress (Right lower quadrant pain) - EENT Eyes: Present: EOM intact ENT: hearing intact - Respiratory Respiratory effort: normal - Extremities Extremities: pulses intact, normal temperature, normal color Peripheral Pulses: within normal limits - Abdominal General gastrointestinal: Present: tender (Right lower quadrant pain), other (Obese, no rebound) - Psychiatric Psychiatric: appropriate mood/affect, cooperative Results - Labs CBC & Chem 7: 01/22/20 01:38 01/22/20 01:38 Labs: Abnormal lab results 01/22/20 01/22/20 Range/Units 01:38 01:38 WBC 14.7 H (4.5-11.0) K/mm3 Hgb 15.0 H (10.1-14.3) gm/dl MCV 100 H (79-97) fl MCH 35 H (28-32) pg MCHC 35 H (30-34) % [place] % (Auto) 8.2 H (0.0-7.3) % [place] # (Auto) 1.2 H (0.0-0.8) K/mm3 Seg Neutrophils % 71.2 H (40.0-70.0) % Seg Neutrophils # 10.5 H (1.8-7.7) K/mm3 Glucose 142 H (65-100) mg/dL Alkaline Phosphatase 157 H (35-129) units/L - Imaging and Cardiology CT scan - abdomen: report reviewed, image reviewed Assessment and Plan 59-year-old female with past medical history of smoking who presents with severe right lower quadrant pain out of proportion with CT scan originally demonstrating right renal infarct and enteritis of the small bowel. CT angiogram performed demonstrating distal SMA thrombus. Discussed percutaneous embolectomy with the patient, and risks, benefits, and alternatives discussed. Contacted Dr. Malagon, general surgeon on-call, to alert him of the findings and need for evaluation. Discussed with patient how she may need further general surgery evaluation/surgical treatment. Contacted Dr. Jones about transfer to the ICU.
[2020-01-22] MEDS ORDERED: HEPARIN/NS 5000 UNIT/500ML 1,000 ML IR ONE (17:08)
[2020-01-22] MEDS ORDERED: LIDOCAINE 1%/EPINEPHRINE 1:100,000 VIAL (20 ML) INFILTRATI ONE (17:08)
[2020-01-22] MEDS ORDERED: SODIUM CHLORIDE 0.9% 500 ML 0 ML ONE (17:09)
[2020-01-22] MEDS ORDERED: NITROGLYCERIN SYRINGE 3 ML ONE ×2 (17:09→18:04)
--- NOTE | 2020-01-22 17:16 | Cat Scan Report ---
CTA CHEST WITH CONTRAST INDICATION / CLINICAL INFORMATION: acute onset abd pain, renal infarct, ischemia. TECHNIQUE: Axial CT images were obtained through the chest after injection of IV contrast. 3 plane ME P and/or 3D reconstructions were produced. All CT scans at this location are performed using CT dose reduction for ALARA by means of automated exposure control. COMPARISON: None available. FINDINGS: PULMONARY ARTERIES: No central or segmental pulmonary embolus. THORACIC AORTA: The thoracic aorta is normal in caliber with mild atherosclerotic calcifications. The re is a tiny focal intimal defect along the medial aspect of the proximal descending thoracic aorta ( series 2 image 43). Remainder of the aorta is unremarkable. HEART: No significant abnormality. ADENOPATHY: No significant adenopathy. LUNGS/PLEURA: No focal airspace consolidation. No pleural effusion. No pneumothorax. ADDITIONAL FINDINGS: None. UPPER ABDOMEN: No acute findings. SKELETAL STRUCTURES: No significant osseous abnormality. IMPRESSION: 1. Tiny focal intimal defect of the medial aspect of the proximal descending thoracic aorta, suspicio us for tiny dissection. 2. No other acute findings in the chest. CT ABDOMEN AND PELVIS WITH CONTRAST INDICATION / CLINICAL INFORMATION: acute onset abd pain, renal infarct, ischemia. TECHNIQUE: Axial CT images were obtained through the abdomen and pelvis after IV contrast. All CT sc ans at this location are performed using CT dose reduction for [employer] by means of automated exposure c ontrol. COMPARISON: CT from earlier today at 01/22/2020 at 0341 hours. FINDINGS: LIVER: Unremarkable GALLBLADDER/BILIARY TREE: Unremarkable PANCREAS: Unremarkable SPLEEN: Patchy areas of peripheral hypoenhancement within the spleen are compatible with multifocal s plenic infarcts. ADRENALS: Unremarkable KIDNEYS / URETER: Similar peripheral wedge-shaped hypoenhancement of the midportion of the right kidn ey. Kidneys are otherwise unremarkable. No hydronephrosis. URINARY BLADDER: Unremarkable REPRODUCTIVE ORGANS: Unremarkable STOMACH / SMALL BOWEL: Scattered mural thickening and inflammatory changes of the small bowel in the central abdomen. COLON: The colon is unremarkable. The appendix is normal in caliber. LYMPH NODES: No significant adenopathy. 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 The celiac trunk and major branches are pa tent. Bilateral duplicated renal arteries are patent. CASSI is patent. There is focal mild narrowing of the distal right common iliac artery. The right external iliac and internal iliac arteries are paten t. Left common iliac, internal iliac, and external iliac arteries are patent. No aneurysm. OTHER: No free air, free fluid, or focal fluid collection is identified. SKELETAL SYSTEM: No acute osseous findings. IMPRESSION: 1. Focal occlusion of the distal SMA with prominent mural thickening and inflammatory changes of the small bowel in the central abdomen, compatible with ischemic enteritis. No bowel pneumatosis at this time. 2. Interval development of multiple splenic infarcts. 3. Similar area of infarction within the right mid kidney. CRITICAL RESULT: Time of Discovery (DELIVERY DRIVER/CDT): 01/22/2020 at 3:50 PM Time of Communication (DELIVERY DRIVER/CDT): 01/22/2020 at 4:00 PM Licensed Practitioner Receiving Report: Dr. Suárez by Dr. Zacarias. Read-Back Performed: Yes. Signer Name: Chandan Earl MD Signed: 01/22/2020 5:12 PM Workstation Name: [id number]
--- NOTE | 2020-01-22 17:16 | Cat Scan Report ---
CTA CHEST WITH CONTRAST INDICATION / CLINICAL INFORMATION: acute onset abd pain, renal infarct, ischemia. TECHNIQUE: Axial CT images were obtained through the chest after injection of IV contrast. 3 plane [place] P and/or 3D reconstructions were produced. All CT scans at this location are performed using CT dose reduction for ALARA by means of automated exposure control. COMPARISON: None available. FINDINGS: PULMONARY ARTERIES: No central or segmental pulmonary embolus. THORACIC AORTA: The thoracic aorta is normal in caliber with mild atherosclerotic calcifications. The re is a tiny focal intimal defect along the medial aspect of the proximal descending thoracic aorta ( series 2 image 43). Remainder of the aorta is unremarkable. HEART: No significant abnormality. ADENOPATHY: No significant adenopathy. LUNGS/PLEURA: No focal airspace consolidation. No pleural effusion. No pneumothorax. ADDITIONAL FINDINGS: None. UPPER ABDOMEN: No acute findings. SKELETAL STRUCTURES: No significant osseous abnormality. IMPRESSION: 1. Tiny focal intimal defect of the medial aspect of the proximal descending thoracic aorta, suspicio us for tiny dissection. 2. No other acute findings in the chest. CT ABDOMEN AND PELVIS WITH CONTRAST INDICATION / CLINICAL INFORMATION: acute onset abd pain, renal infarct, ischemia. TECHNIQUE: Axial CT images were obtained through the abdomen and pelvis after IV contrast. All CT sc ans at this location are performed using CT dose reduction for [employer] by means of automated exposure c ontrol. COMPARISON: CT from earlier today at 01/22/2020 at 0341 hours. FINDINGS: LIVER: Unremarkable GALLBLADDER/BILIARY TREE: Unremarkable PANCREAS: Unremarkable SPLEEN: Patchy areas of peripheral hypoenhancement within the spleen are compatible with multifocal s plenic infarcts. ADRENALS: Unremarkable KIDNEYS / URETER: Similar peripheral wedge-shaped hypoenhancement of the midportion of the right kidn ey. Kidneys are otherwise unremarkable. No hydronephrosis. URINARY BLADDER: Unremarkable REPRODUCTIVE ORGANS: Unremarkable STOMACH / SMALL BOWEL: Scattered mural thickening and inflammatory changes of the small bowel in the central abdomen. COLON: The colon is unremarkable. The appendix is normal in caliber. LYMPH NODES: No significant adenopathy. 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 The celiac trunk and major branches are pa tent. Bilateral duplicated renal arteries are patent. CASSI is patent. There is focal mild narrowing of the distal right common iliac artery. The right external iliac and internal iliac arteries are paten t. Left common iliac, internal iliac, and external iliac arteries are patent. No aneurysm. OTHER: No free air, free fluid, or focal fluid collection is identified. SKELETAL SYSTEM: No acute osseous findings. IMPRESSION: 1. Focal occlusion of the distal SMA with prominent mural thickening and inflammatory changes of the small bowel in the central abdomen, compatible with ischemic enteritis. No bowel pneumatosis at this time. 2. Interval development of multiple splenic infarcts. 3. Similar area of infarction within the right mid kidney. CRITICAL RESULT: Time of Discovery (RECOIL SPRING WINDER/CDT): 01/22/2020 at 3:50 PM Time of Communication (RECOIL SPRING WINDER/CDT): 01/22/2020 at 4:00 PM Licensed Practitioner Receiving Report: Dr. Suárez by Dr. Zacarias. Read-Back Performed: Yes. Signer Name: Chandan Earl MD Signed: 01/22/2020 5:12 PM Workstation Name: [id number]
[2020-01-22] MEDS: HEPARIN 10,000 UNITS/10 ML VIAL ONE ×4 (17:20→18:45)
[2020-01-22] MEDS: fentaNYL 100 MCG/2 ML INJ ONE ×5 (17:50→19:10)
[2020-01-22] MEDS: MIDAZOLAM 2 MG/2 ML INJ ONE ×5 (17:50→19:10)
[2020-01-22] MEDS: VERAPAMIL 5 MG/2 ML INJ ONE ×4 (17:52→19:10)
[2020-01-22] MEDS ORDERED: HEPARIN/NS 5000 UNIT/500ML 500 ML IR ONE (18:43)
[2020-01-22] MEDS ORDERED: ALTEPLASE 2 MG INJ ONE ×2 (18:52→18:53)
[2020-01-22] MEDS ORDERED: WATER FOR INJ Sterile (PF) 10 ML ONE (18:52)
--- NOTE | 2020-01-22 18:54 | Consultation ---
History of Present Illness Consult date: 01/22/20 Reason for consult: abdominal pain Past History Past Medical History: arthritis, COPD, hypertension, hyperlipidemia, other (Fibromyalgia) Past Surgical History: hysterectomy (Laparoscopic hysterectomy) Social history: smoking (Current daily smoker) Family history: no significant family history Medications and Allergies Allergies Allergy/AdvReac Type Severity Reaction Status Date / Time No Known Allergies Allergy Unverified 07/15/15 22:25 Home Medications Medication Instructions Recorded Confirmed Last Taken Type Amlodipine Besylate 5 mg PO DAILY 07/15/15 07/15/15 07/15/15 History Simvastatin 20 mg PO QPM 07/15/15 07/15/15 07/15/15 History Venlafaxine HCl 75 mg PO DAILY 07/15/15 07/15/15 07/15/15 History HYDROcodone/APAP 10-325 [[place] 1 each PO Q6HR PRN #20 tablet 07/16/15 Unknown Rx 10-325 mg TAB] Ondansetron [Zofran ODT TAB] 8 mg PO Q8HR PRN #20 tab.rapdis 07/16/15 Unknown Rx Active Meds: Active Medications Acetaminophen (Tylenol) 650 mg PO Q4H PRN PRN Reason: Pain MILD(1-3)/Fever >100.5/RUCKER Hydromorphone HCl (Dilaudid) 0.5 mg IV Q3H PRN PRN Reason: Pain , Severe (7-10) Last Admin: 01/22/20 10:11 Dose: 0.5 mg Documented by: Sodium Chloride (Nacl 0.9% 1000 Ml) 1,000 mls @ 125 mls/hr IV DIRECT ANDRA Last Admin: 01/22/20 10:14 Dose: 125 mls/hr Documented by: Heparin Sodium/Sodium Chloride (Heparin/ 0.45% Nacl-25,000 Unit/500 Ml) 25,000 unit in 500 mls @ 29 mls/hr IV TITR ANDRA; Protocol Piperacillin Sod/Tazobactam Sod (Zosyn/Ns 4.5gm/100ml) 4.5 gm in 100 mls @ 200 mls/hr IV Q8H ANDRA; Protocol Magnesium Hydroxide (Milk Of Magnesia) 30 ml PO Q4H PRN PRN Reason: Constipation Ondansetron HCl (Zofran) 4 mg IV Q8H PRN PRN Reason: Nausea And Vomiting Sodium Chloride (Sodium Chloride Flush Syringe 10 Ml) 10 ml IV BID ANDRA Last Admin: 01/22/20 10:17 Dose: 10 ml Documented by: Sodium Chloride (Sodium Chloride Flush Syringe 10 Ml) 10 ml IV PRN PRN PRN Reason: LINE FLUSH Exam Vital Signs Temp Pulse Resp BP Pulse Ox 98.1 F 70 18 172/65 96 01/22/20 01:03 01/22/20 01:03 01/22/20 01:03 01/22/20 01:03 01/22/20 01:03 Results - Labs 01/22/20 01:38 01/22/20 01:38 Abnormal lab results 01/22/20 01/22/20 Range/Units 01:38 01:38 WBC 14.7 H (4.5-11.0) K/mm3 Hgb 15.0 H (10.1-14.3) gm/dl MCV 100 H (79-97) fl MCH 35 H (28-32) pg MCHC 35 H (30-34) % [place] % (Auto) 8.2 H (0.0-7.3) % [place] # (Auto) 1.2 H (0.0-0.8) K/mm3 Seg Neutrophils % 71.2 H (40.0-70.0) % Seg Neutrophils # 10.5 H (1.8-7.7) K/mm3 Glucose 142 H (65-100) mg/dL Alkaline Phosphatase 157 H (35-129) units/L Diabetes panel 01/22/20 Range/Units 01:38 Sodium 142 (137-145) mmol/L Potassium 3.7 (3.6-5.0) mmol/L Chloride 105.2 (98-107) mmol/L Carbon Dioxide 24 (22-30) mmol/L BUN 17 (7-17) mg/dL Creatinine 0.6 (0.6-1.2) mg/dL Glucose 142 H (65-100) mg/dL Calcium 9.0 (8.4-10.2) mg/dL AST 32 (5-40) units/L ALT 40 (7-56) units/L Alkaline Phosphatase 157 H (35-129) units/L Total Protein 6.5 (6.3-8.2) g/dL Albumin 3.9 (3.9-5) g/dL Calcium panel 11/28/20 Range/Units 01:38 Calcium 9.0 (8.4-10.2) mg/dL Albumin 3.9 (3.9-5) g/dL Pituitary panel 01/22/20 Range/Units 01:38 Sodium 142 (137-145) mmol/L Potassium 3.7 (3.6-5.0) mmol/L Chloride 105.2 (98-107) mmol/L Carbon Dioxide 24 (22-30) mmol/L BUN 17 (7-17) mg/dL Creatinine 0.6 (0.6-1.2) mg/dL Glucose 142 H (65-100) mg/dL Calcium 9.0 (8.4-10.2) mg/dL Adrenal panel 01/22/20 Range/Units 01:38 Sodium 142 (137-145) mmol/L Potassium 3.7 (3.6-5.0) mmol/L Chloride 105.2 (98-107) mmol/L Carbon Dioxide 24 (22-30) mmol/L BUN 17 (7-17) mg/dL Creatinine 0.6 (0.6-1.2) mg/dL Glucose 142 H (65-100) mg/dL Calcium 9.0 (8.4-10.2) mg/dL Total Bilirubin 0.50 (0.1-1.2) mg/dL AST 32 (5-40) units/L ALT 40 (7-56) units/L Alkaline Phosphatase 157 H (35-129) units/L Total Protein 6.5 (6.3-8.2) g/dL Albumin 3.9 (3.9-5) g/dL Assessment and Plan d/w Dr. Suárez Pt with ischemic enteritis with SMA thrombus in addition to splenic and renal infarcts. Pt VS and labs noted. Lactate/bicarb normal. Afeb. VS normal. WBC=15 Ct with no evid of /necrotic bowel at this time. Pt exam d/w vasc surgeon Dr. Suárez-- no peritoneal signs at this time but pt with abd pain/n/v and TTP. I am unable to access Ct images at this time. Will await results of vascular intervention and monitor patient very closely (in ICU as d/w Dr. Suárez) for evid of worsening bowel ischemia/ for which she may require emergency surgical intervention Rec ICU, abx, serial labs including lactate, ABG, etc.
[2020-01-22] MEDS ORDERED: NITROGLYCERIN SYRINGE 6 ML ONE (19:04)
[2020-01-22] MEDS ORDERED: NITROGLYCERIN 2% OINT 1 GM TP ONE (19:05)
--- NOTE | 2020-01-22 19:21 | Progress Note ---
Assessment and Plan d/w Dr. Suárez and cath images rev'd Pt with resolution of abd pain after procedure. Will cont to monitor for evid worsening bowel ischemia. Pt needs ECHO Subjective Date of service: 01/22/20 Objective Vital Signs - 12hr 01/22/20 01/22/20 01/22/20 07:59 11:26 12:00 Temperature 98.6 F 98.0 F Pulse Rate 71 70 Respiratory 18 18 18 Rate Blood Pressure 154/64 135/56 O2 Sat by Pulse 90 90 92 Oximetry 01/22/20 16:11 Temperature 98.0 F Pulse Rate 76 Respiratory 20 Rate Blood Pressure 156/72 O2 Sat by Pulse 90 Oximetry - Labs 01/22/20 01:38 01/22/20 01:38 Diabetes panel 01/22/20 Range/Units 01:38 Sodium 142 (137-145) mmol/L Potassium 3.7 (3.6-5.0) mmol/L Chloride 105.2 (98-107) mmol/L Carbon Dioxide 24 (22-30) mmol/L BUN 17 (7-17) mg/dL Creatinine 0.6 (0.6-1.2) mg/dL Glucose 142 H (65-100) mg/dL Calcium 9.0 (8.4-10.2) mg/dL AST 32 (5-40) units/L ALT 40 (7-56) units/L Alkaline Phosphatase 157 H (35-129) units/L Total Protein 6.5 (6.3-8.2) g/dL Albumin 3.9 (3.9-5) g/dL Calcium panel 01/22/20 Range/Units 01:38 Calcium 9.0 (8.4-10.2) mg/dL Albumin 3.9 (3.9-5) g/dL Pituitary panel 01/22/20 Range/Units 01:38 Sodium 142 (137-145) mmol/L Potassium 3.7 (3.6-5.0) mmol/L Chloride 105.2 (98-107) mmol/L Carbon Dioxide 24 (22-30) mmol/L BUN 17 (7-17) mg/dL Creatinine 0.6 (0.6-1.2) mg/dL Glucose 142 H (65-100) mg/dL Calcium 9.0 (8.4-10.2) mg/dL Adrenal panel 01/22/20 Range/Units 01:38 Sodium 142 (137-145) mmol/L Potassium 3.7 (3.6-5.0) mmol/L Chloride 105.2 (98-107) mmol/L Carbon Dioxide 24 (22-30) mmol/L BUN 17 (7-17) mg/dL Creatinine 0.6 (0.6-1.2) mg/dL Glucose 142 H (65-100) mg/dL Calcium 9.0 (8.4-10.2) mg/dL Total Bilirubin 0.50 (0.1-1.2) mg/dL AST 32 (5-40) units/L ALT 40 (7-56) units/L Alkaline Phosphatase 157 H (35-129) units/L Total Protein 6.5 (6.3-8.2) g/dL Albumin 3.9 (3.9-5) g/dL
[2020-01-22] MEDS ORDERED: HEPARIN/ 0.45% NACL DRIP 25,000 UNIT/500 ML BAG ONE (19:24)
--- NOTE | 2020-01-22 19:26 | Operative Report ---
Operative Report Operative Report: EXAM: 1. Ultrasound guided access of the left radial artery 2. Selection of the SMA with angiography 3. Penumbra CAT 6 thrombectomy of the mid SMA 4. Selection of the middle colic artery with angiography 5. Penumbra CAT 6 thrombectomy of the middle colic artery 6. Selection of the right colic artery with angiography 7. Penumbra CAT 6 thrombectomy of the right colic artery with infusion of 3 mg of tPA and nitroglycerin and verapamil 8. Selection of the distal SMA with angiography 9. Penumbra CAT 6 thrombectomy of the distal SMA with infusion of 3 md of tPA and nitroglycerin and verapamil DATE: 01/22/2020 ACCOUNTANT MACHINE PROCESSING: ERVIN GOLD MD INDICATION: 59-year-old female who presents with mesenteric occlusion with out peritoneal signs with no pneumatosis or perforation on CT with SMA thrombus who presents for thrombectomy. MEDICATIONS: Please see nursing report for full details. DEVICES: CAT 6 indigo thrombectomy catheter Renegade STC 6 mg TPA Nitroglycerin and verapamil CONTRAST: Please see [facility] report for full details PROCEDURE: The risks, benefits, and alternatives were discussed with the patient; written informed consent was obtained. The patient was brought to the [facility] in stable condition and positioned on the [facility] table. Her left arm and her groins were prepped and draped in a sterile fashion. The left wrist was evaluated with ultrasound and the left radial artery was palpable. The patient was partially heparinized. Ultrasound was used to evaluate the left radial artery which was patent. Under direct ultrasound guidance, the left radial artery was accessed with a 21-gauge micropuncture needle. 0.018 inch wire was passed into the radial artery. Needle was exchanged for a 6 [place] glide sheath slender. Nitroglycerin, verapamil, and heparin was administered. This completely heparinized the patient. Pigtail catheter and 0.035 inch wire were used to select the descending thoracic aorta and the abdominal aorta. Catheter was exchanged for a MPA catheter which was then used to select the SMA. Digital subtraction angiography was performed confirming position in the SMA demonstrating patency of the first 5 cm of the SMA with a large embolism/thrombus in the mid part of the SMA extending into many of the branches and preventing flow into the right colic artery, mid and mid SMA and beyond. There was sluggish flow in the middle colic artery. 0.035 inch Glidewire advantage was passed into the vessel and through the radial sheath additional verapamil and nitroglycerin was infused. Radial sheath was exchanged for a 6 [place] 90 cm [place] destination which was then positioned in the proximal SMA. CAT 6 indigo penumbra aspiration catheter was then used to engage the thrombus in the mid SMA after this area was selected. Aspiration thrombectomy was performed multiple times in multiple different directions which ultimately removed the preponderance of the thrombus. Digital subtraction angiography demonstrated sluggish flow in the middle colic artery, some residual thrombus in the distalmost portion of the right colic artery, and some residual thrombus in the distal most SMA. The middle colic artery was selected and CAT 6 indigo penumbra aspiration catheter was advanced over the wire and used to perform aspiration thrombectomy in the middle colic artery. Digital subtraction angiography demonstrated improved flow. In order to select to the right colic artery, I had to use a renegade STC and Choice PT floppy wire to select this vessel and then coaxially advanced a MPA catheter over the microcatheter. This was then exchanged for a Glidewire advantage. CAT 6 indigo penumbra aspiration catheter was then advanced into the terminal branches of the right colic artery and aspiration thrombectomy was performed removing additional thrombus. Afterwards, there was some small amounts of residual thrombus noted and 3 mg of TPA was infused and verapamil and nitroglycerin was infused. CAT 6 indigo penumbra aspiration catheter was then used to select the distal SMA and aspiration thrombectomy was performed removing additional thrombus. There was some thrombus that must have become dislodged and occluded the distal SMA which was then treated and aspirated. Digital subtraction angiography demonstrated some spasm at this area which was treated with verapamil and nitroglycerin. 3 mg of TPA was infused. Digital subtraction angiography demonstrated minimal residual thrombus at this location. At this point, digital subtraction angiography was performed to the sheath demonstrating robust flow through the SMA with resolution of all of the central and main portions of the thrombus with only a small amount of residual thrombus noted in terminal branches of the right colic artery which then filled through collaterals. The middle colic artery and SMA were patent. Nitroglycerin was then placed on the patient's left arm and Glidewire advantage and the introducer were readvanced through the sheath and the sheath was then removed to the radial artery. Nitroglycerin and verapamil were reinfused to the sheath and the sheath was then completely removed and TR band was applied. Patient tolerated the procedure well. No immediate postprocedural complications. The patient is abdominal pain near completely resolved at the conclusion of the procedure. FINDINGS: Please see procedure note above. IMPRESSION: Successful thrombectomy of the middle colic artery, right colic artery, and SMA as described above.
--- NOTE | 2020-01-22 19:26 | Post Operative Note ---
Date of procedure: 01/22/20 Pre-op diagnosis: SMA thrombus Post-op diagnosis: same Findings: Occlusion thrombus in the mid SMA noted At resolution, all main thrombus has been removed, but there is small amounts of residual thrombus in the segmental branches of the colon and ileum Procedure: 1. Ultrasound guided access of the left radial artery 2. Selection of the SMA with angiography 3. Penumbra CAT 6 thrombectomy of the mid SMA 4. Selection of the middle colic artery with angiography 5. Penumbra CAT 6 thrombectomy of the middle colic artery 6. Selection of the right colic artery with angiography 7. Penumbra CAT 6 thrombectomy of the right colic artery with infusion of 3 mg of tPA and nitroglycerin and verapamil 8. Selection of the distal SMA with angiography 9. Penumbra CAT 6 thrombectomy of the distal SMA with infusion of 3 md of tPA and nitroglycerin and verapamil Anesthesia: local (w/ conscious sedation) Surgeon: ERVIN GOLD Estimated blood loss: other (350 EBL from penumbra thrombectomy) Condition: stable (abdominal pain improved) Disposition: ICU
--- NOTE | 2020-01-22 19:38 | Event Note ---
Date: 01/22/20 Successful thrombectomy of the main SMA and colic branches with some small distal residual thrombus noted Started on heparin drip Will need to be monitored overnight with abdominal exams. Alert Dr. Malagon if there is a worsening of abdominal pain.
[2020-01-22] MEDS: HEPARIN/ 0.45% NACL DRIP 25,000 UNIT/500 ML BAG IV SCH (19:46)
[2020-01-22 21:33] LABS: Basophils % (Auto) 0.3 % (0.0-1.8); Eosinophils # (Auto) 0.1 K/mm3 (0.0-0.4); Eosinophils % (Auto) 0.9 % (0.0-4.3); Hematocrit 41.8 % (30.3-42.9); Hemoglobin 14.2 gm/dl (10.1-14.3); Lymphocytes # (Auto) 1.8 K/mm3 (1.2-5.4); Lymphocytes % (Auto) 13.6 % (13.4-35.0); Mean Corpuscular HGB Conc 34 % (30-34); Mean Corpuscular Volume 101 fl (79-97); Monocytes # (Auto) 1.3 K/mm3 (0.0-0.8); Monocytes % (Auto) 9.7 % (0.0-7.3); Platelet Count 133 K/mm3 (140-440); Red Blood Count 4.15 M/mm3 (3.65-5.03); Red Cell Distribution Width 13.7 % (13.2-15.2)
[2020-01-22 21:42] LABS: INR 1.18 (0.87-1.13)
[2020-01-22 21:52] LABS: Blood Urea Nitrogen 11 mg/dL (7-17); Hemolysis Index 64
[2020-01-22 21:55] LABS: BUN/Creatinine Ratio 28
[2020-01-22] MEDS ORDERED: ENOXAPARIN 40 MG/0.4 ML INJ SUB-Q SCH (22:00)
[2020-01-22] MEDS ORDERED: ASPIRIN EC 81 MG TAB PO SCH (22:40)
--- NOTE | 2020-01-22 23:44 | Progress Note ---
Assessment and Plan Labs and VS noted No evid of clinical deterioration at this time. Cont current care. Subjective Date of service: 01/22/20 Patient Reports: Positive: flatus Objective Vital Signs - 12hr 01/22/20 01/22/20 01/22/20 12:00 16:11 19:48 Temperature 98.0 F 97.6 F Pulse Rate 76 73 Respiratory 18 20 12 Rate Blood Pressure 156/72 Blood Pressure 141/73 [Left] O2 Sat by Pulse 92 90 99 Oximetry 01/22/20 21:36 Temperature 97.9 F Pulse Rate Respiratory Rate Blood Pressure Blood Pressure [Left] O2 Sat by Pulse Oximetry - Labs 01/22/20 21:17 01/22/20 21:17 Diabetes panel 01/22/20 01/22/20 Range/Units 01:38 21:17 Sodium 142 138 (137-145) mmol/L Potassium 3.7 4.2 (3.6-5.0) mmol/L Chloride 105.2 108.3 H (98-107) mmol/L Carbon Dioxide 24 23 (22-30) mmol/L BUN 17 11 (7-17) mg/dL Creatinine 0.6 0.4 L (0.6-1.2) mg/dL Glucose 142 H 110 H (65-100) mg/dL Calcium 9.0 8.0 L (8.4-10.2) mg/dL AST 32 (5-40) units/L ALT 40 (7-56) units/L Alkaline Phosphatase 157 H (35-129) units/L Total Protein 6.5 (6.3-8.2) g/dL Albumin 3.9 (3.9-5) g/dL Calcium panel 01/22/20 01/22/20 Range/Units 01:38 21:17 Calcium 9.0 8.0 L (8.4-10.2) mg/dL Albumin 3.9 (3.9-5) g/dL Pituitary panel 01/22/20 01/22/20 Range/Units 01:38 21:17 Sodium 142 138 (137-145) mmol/L Potassium 3.7 4.2 (3.6-5.0) mmol/L Chloride 105.2 108.3 H (98-107) mmol/L Carbon Dioxide 24 23 (22-30) mmol/L BUN 17 11 (7-17) mg/dL Creatinine 0.6 0.4 L (0.6-1.2) mg/dL Glucose 142 H 110 H (65-100) mg/dL Calcium 9.0 8.0 L (8.4-10.2) mg/dL Adrenal panel 01/22/20 01/22/20 Range/Units 01:38 21:17 Sodium 142 138 (137-145) mmol/L Potassium 3.7 4.2 (3.6-5.0) mmol/L Chloride 105.2 108.3 H (98-107) mmol/L Carbon Dioxide 24 23 (22-30) mmol/L BUN 17 11 (7-17) mg/dL Creatinine 0.6 0.4 L (0.6-1.2) mg/dL Glucose 142 H 110 H (65-100) mg/dL Calcium 9.0 8.0 L (8.4-10.2) mg/dL Total Bilirubin 0.50 (0.1-1.2) mg/dL AST 32 (5-40) units/L ALT 40 (7-56) units/L Alkaline Phosphatase 157 H (35-129) units/L Total Protein 6.5 (6.3-8.2) g/dL Albumin 3.9 (3.9-5) g/dL
[2020-01-23] MEDS ORDERED: ASPIRIN EC 81 MG TAB PO ONE ×2 (00:15→23:55)
[2020-01-23] MEDS: HYDROmorphone 1 MG/1 ML INJ IV PRN ×4 (01:07→21:25)
[2020-01-23 03:04] LABS: Basophils % (Auto) 0.3 % (0.0-1.8); Eosinophils # (Auto) 0.1 K/mm3 (0.0-0.4); Eosinophils % (Auto) 1.2 % (0.0-4.3); Hematocrit 38.8 % (30.3-42.9); Hemoglobin 13.2 gm/dl (10.1-14.3); Lymphocytes # (Auto) 2.2 K/mm3 (1.2-5.4); Lymphocytes % (Auto) 18.2 % (13.4-35.0); Mean Corpuscular HGB Conc 34 % (30-34); Mean Corpuscular Volume 101 fl (79-97); Monocytes # (Auto) 1.3 K/mm3 (0.0-0.8); Monocytes % (Auto) 10.3 % (0.0-7.3); Platelet Count 131 K/mm3 (140-440); Red Blood Count 3.83 M/mm3 (3.65-5.03); Red Cell Distribution Width 13.6 % (13.2-15.2)
[2020-01-23 03:13] LABS: Blood Urea Nitrogen 9 mg/dL (7-17); Hemolysis Index 22
[2020-01-23 03:14] LABS: BUN/Creatinine Ratio 18
[2020-01-23 03:16] LABS: INR 1.08 (0.87-1.13)
[2020-01-23] MEDS: SODIUM CHLORIDE 0.9% 1000 ML 1,000 ML IV SCH ×2 (04:24→14:12)
--- NOTE | 2020-01-23 07:23 | Progress Note ---
Subjective Interval history: Patient was seen today for follow-up of multiple renal related issues No complaints of any chest pain pressure or shortness of breath underwent surgery yesterday for bowel ischemia Interdisciplinary notes that also reviewed Events of 24 hours vitals labs intake output medications were reviewed Past medical history: Reviewed Family history: Reviewed Social history: Reviewed Allergies: Reviewed Physical examination: Vitals: Reviewed HEENT: No pallor or icterus oral mucosa moist Neck: Supple no JVD no thyromegaly Chest: Bilateral clear to auscultation anteriorly Heart: Regular rate and rhythm S1-S2 heard no S3-S4 Abdomen:postoperative abdomen Extremity: Dry skin less than 1+ peripheral edema Psychiatric: No evidence of agitation and aggression noted Dermatology: No petechial rashes Labs and x-rays: Reviewed from today Assessment and plan #Patient underwent surgery for ischemic enteritis there was no evidence of worsening ischemia, diet is being advanced #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 renal infarct, splenic infarct, ischemic enteritis, #Recommend hematology oncology evaluation She is stable from renal standpoint Needs to quit smoking control cholesterol aggressively We'll continue to follow and make recommendation for renal standpoint Objective - Vital Signs Vital signs: Vital Signs - 12hr 01/22/20 01/22/20 01/22/20 19:48 20:03 21:00 Temperature 97.6 F Pulse Rate 73 78 Respiratory 12 21 Rate Blood Pressure 141/73 [Left] O2 Sat by Pulse 99 96 Oximetry 01/22/20 01/22/20 01/23/20 21:36 23:54 00:00 Temperature 97.9 F 98.8 F Pulse Rate Respiratory 20 Rate Blood Pressure [Left] O2 Sat by Pulse 98 Oximetry 01/23/20 01/23/20 01/23/20 01:07 04:00 05:25 Temperature 98.9 F Pulse Rate 71 Respiratory 19 Rate Blood Pressure [Left] O2 Sat by Pulse Oximetry - Lab 01/23/20 02:21 01/23/20 02:21 Most recent lab results Calcium 8.0 mg/dL (8.4-10.2) L 01/23/20 02:21 Magnesium 2.00 mg/dL (1.7-2.3) 01/22/20 01:38 Medications & Allergies - Medications Allergies/Adverse Reactions: Allergies No Known Allergies Allergy (Unverified 07/15/15 22:25) Home Medications: Home Medications Medication Instructions Recorded Confirmed Last Taken Type HYDROcodone/APAP 10-325 [Lynn 1 each PO Q6HR PRN #20 tablet 07/16/15 01/23/20 Unknown Rx 10-325 mg TAB] AtorvaSTATin [Lipitor] 40 mg PO QHS 01/23/20 01/23/20 Unknown History Carvedilol Phosphate [Carvedilol 40 mg PO BID 01/23/20 01/23/20 Unknown History ER] DULoxetine [Cymbalta] 30 mg PO BID 01/23/20 01/23/20 Unknown History Active Medications: Generic Name Dose Route Start Last Admin Trade Name Freq PRN Reason Stop Dose Admin Acetaminophen 650 mg 01/22/20 05:47 Tylenol PO Q4H PRN Pain MILD(1-3)/Fever >100.5/RUCKER Aspirin 81 mg 01/23/20 10:00 Halfprin Ec PO QDAY ANDRA Hydromorphone HCl 0.5 mg 01/22/20 05:47 01/23/20 01:07 Dilaudid IV 0.5 mg Q3H PRN Administration Pain , Severe (7-10) Sodium Chloride 1,000 mls @ 125 mls/hr 01/22/20 06:00 01/23/20 04:24 Nacl 0.9% 1000 Ml IV 125 mls/hr DIRECT ANDRA Administration Heparin Sodium/Sodium Chloride 25,000 unit in 500 mls @ 29 mls/hr 01/22/20 18:00 01/22/20 19:46 Heparin/ 0.45% Nacl-25,000 Unit/500 Ml IV 20 mls TITR ANDRA Administration Protocol 1,450 UNITS/HR Piperacillin Sod/Tazobactam Sod 4.5 gm in 100 mls @ 200 mls/hr 01/22/20 18:00 Zosyn/Ns 4.5gm/100ml IV Q8H ANDRA Protocol Magnesium Hydroxide 30 ml 01/22/20 05:47 Milk Of Magnesia PO Q4H PRN Constipation Ondansetron HCl 4 mg 01/22/20 05:47 Zofran IV Q8H PRN Nausea And Vomiting Sodium Chloride 10 ml 01/22/20 10:00 01/22/20 10:17 Sodium Chloride Flush Syringe 10 Ml IV 10 ml BID ANDRA Administration Sodium Chloride 10 ml 01/22/20 05:47 Sodium Chloride Flush Syringe 10 Ml IV PRN PRN LINE FLUSH
[2020-01-23] MEDS: PIPERACIL/TAZOBACTA 4.5/NS 100 4.5 GM/100 ML VIAL IV SCH ×3 (07:44→17:58)
[2020-01-23] MEDS: ONDANSETRON 4 MG/2 ML INJ IV PRN (08:12)
[2020-01-23] MEDS: ASPIRIN EC 81 MG TAB PO SCH (09:38)
--- NOTE | 2020-01-23 10:15 | Progress Note ---
Assessment and Plan Assessment and plan: Mid SMA thrombus/bowel mesenteric ischemia IR and GI following. CTA revealed focal occlusion of the distal SMA with prominent mural thickening and inflammatory changes of the small bowel in the central abdomen compatible with ischemic enteritis. Patient awaits ultrasound of the gallbladder. Abdominal pain. Etiology secondary to above Hypertension Permissive hypertension per IR recommendation Renal infarct Nephrology following. CT scan of the abdomen and pelvis however reveals right renal infarction. Leukocytosis Possibly reactive however patient is being covered with empiric IV antibiotics. DVT prophylaxis Patient placed on subcutaneous Lovenox. Full code status 01/23/2020. CT scan of the chest revealed ulcerated plaque with associated thrombus that showered the abdominal aorta. Continue IV heparin drip and aspirin. Continue antibiotics of Levaquin and Zosyn. IR, nephrology and general surgery following. History Interval history: No new issues overnight. Hospitalist Physical - Constitutional Vitals: Temp Pulse Resp BP Pulse Ox 98.4 F 71 19 124/72 96 01/23/20 08:00 01/23/20 09:01 01/23/20 09:01 01/23/20 09:01 01/23/20 09:01 General appearance: Present: no acute distress, well-nourished - EENT Eyes: Present: PERRL, EOM intact ENT: hearing intact, clear oral mucosa, dentition normal - Neck Neck: Present: supple, normal ROM - Respiratory Respiratory effort: normal Respiratory: bilateral: CTA - Cardiovascular Rhythm: regular Heart Sounds: Present: S1 & S2. Absent: gallop, rub - Extremities Extremities: no ischemia, No edema, Full ROM - Abdominal General gastrointestinal: soft, non-tender, non-distended, normal bowel sounds - Integumentary Integumentary: Present: clear, warm, dry - Neurologic Neurologic: CNII-XII intact, moves all extremities Results - Labs CBC & Chem 7: 01/23/20 02:21 01/23/20 02:21 Labs: Laboratory Last Values WBC 12.3 K/mm3 (4.5-11.0) H 01/23/20 02:21 RBC 3.83 M/mm3 (3.65-5.03) 01/23/20 02:21 Hgb 13.2 gm/dl (10.1-14.3) 01/23/20 02:21 Hct 38.8 % (30.3-42.9) 01/23/20 02:21 MCV 101 fl (79-97) H 01/23/20 02:21 MCH 34 pg (28-32) H 01/23/20 02:21 MCHC 34 % (30-34) 01/23/20 02:21 RDW 13.6 % (13.2-15.2) 01/23/20 02:21 Plt Count 131 K/mm3 (140-440) L 01/23/20 02:21 Lymph % (Auto) 18.2 % (13.4-35.0) 01/23/20 02:21 [place] % (Auto) 10.3 % (0.0-7.3) H 01/23/20 02:21 Eos % (Auto) 1.2 % (0.0-4.3) 01/23/20 02:21 Baso % (Auto) 0.3 % (0.0-1.8) 01/23/20 02:21 Lymph # (Auto) 2.2 K/mm3 (1.2-5.4) 01/23/20 02:21 [place] # (Auto) 1.3 K/mm3 (0.0-0.8) H 01/23/20 02:21 Eos # (Auto) 0.1 K/mm3 (0.0-0.4) 01/23/20 02:21 Baso # (Auto) 0.0 K/mm3 (0.0-0.1) 01/23/20 02:21 Seg Neutrophils % 70.0 % (40.0-70.0) 01/23/20 02:21 Seg Neutrophils # 8.6 K/mm3 (1.8-7.7) H 01/23/20 02:21 PT 13.8 Sec. (12.2-14.9) 01/23/20 02:21 INR 1.08 (0.87-1.13) 01/23/20 02:21 APTT 90.0 Sec. (24.2-36.6) H* 01/22/20 21:17 Heparin Anti-Xa Level 0.41 U.I./ml (0.3-0.7) 01/23/20 02:21 Sodium 141 mmol/L (137-145) 01/23/20 02:21 Potassium 3.8 mmol/L (3.6-5.0) 01/23/20 02:21 Chloride 106.9 mmol/L (98-107) 01/23/20 02:21 Carbon Dioxide 24 mmol/L (22-30) 01/23/20 02:21 Anion Gap 14 mmol/L 01/23/20 02:21 BUN 9 mg/dL (7-17) 01/23/20 02:21 Creatinine 0.5 mg/dL (0.6-1.2) L 01/23/20 02:21 Estimated GFR > 60 ml/min 01/23/20 02:21 BUN/Creatinine Ratio 18 % 01/23/20 02:21 Glucose 107 mg/dL (65-100) H 01/23/20 02:21 Lactic Acid 0.70 mmol/L (0.7-2.0) 01/23/20 02:21 Calcium 8.0 mg/dL (8.4-10.2) L 01/23/20 02:21 Magnesium 2.00 mg/dL (1.7-2.3) 01/22/20 01:38 Total Bilirubin 0.50 mg/dL (0.1-1.2) 01/22/20 01:38 AST 32 units/L (5-40) 01/22/20 01:38 ALT 40 units/L (7-56) 01/22/20 01:38 Alkaline Phosphatase 157 units/L (35-129) H 01/22/20 01:38 Total Creatine Kinase 70 units/L (30-135) 01/22/20 01:38 Total Protein 6.5 g/dL (6.3-8.2) 01/22/20 01:38 Albumin 3.9 g/dL (3.9-5) 01/22/20 01:38 Albumin/Globulin Ratio 1.5 % 01/22/20 01:38 Lipase 16 units/L (13-60) 01/22/20 01:38 Urine Color Yellow (Yellow) 01/22/20 04:37 Urine Turbidity Clear (Clear) 01/22/20 04:37 Urine pH 5.0 (5.0-7.0) 01/22/20 04:37 Ur Specific [place] 1.008 (1.003-1.030) 01/22/20 04:37 Urine Protein 30 mg/dl mg/dL (Negative) 01/22/20 04:37 Urine Glucose (UA) Neg mg/dL (Negative) 01/22/20 04:37 Urine Ketones Neg mg/dL (Negative) 01/22/20 04:37 Urine Blood Neg (Negative) 01/22/20 04:37 Urine Nitrite Neg (Negative) 01/22/20 04:37 Urine Bilirubin Neg (Negative) 01/22/20 04:37 Urine Urobilinogen < 2.0 mg/dL (<2.0) 01/22/20 04:37 Ur Leukocyte Esterase Neg (Negative) 01/22/20 04:37 Urine WBC (Auto) 2.0 /HPF (0.0-6.0) 01/22/20 04:37 Urine RBC (Auto) 5.0 /HPF (0.0-6.0) 01/22/20 04:37 U Epithel Cells (Auto) 3.0 /HPF (0-13.0) 01/22/20 04:37 Urine Bacteria (Auto) 1+ /HPF (Negative) 01/22/20 04:37 Urine Mucus 1+ /HPF 01/22/20 04:37 Microbiology: Microbiology 01/22/20 04:43 Peripheral/Venous Blood Culture - Preliminary NO GROWTH AFTER 24 HOURS 01/22/20 04:35 Peripheral/Venous Blood Culture - Preliminary NO GROWTH AFTER 24 HOURS Pantoja/IV: Voiding Method Bedpan IV Catheter Type [Right Peripheral IV Antecubital] Active Medications - Current Medications Current Medications: Generic Name Dose Route Start Last Admin Trade Name Freq PRN Reason Stop Dose Admin Acetaminophen 650 mg 01/22/20 05:47 Tylenol PO Q4H PRN Pain MILD(1-3)/Fever >100.5/RUCKER Aspirin 81 mg 01/23/20 10:00 01/23/20 09:38 Halfprin Ec PO 81 mg QDAY ANDRA Administration Hydromorphone HCl 0.5 mg 01/22/20 05:47 01/23/20 08:10 Dilaudid IV 0.5 mg Q3H PRN Administration Pain , Severe (7-10) Sodium Chloride 1,000 mls @ 125 mls/hr 01/22/20 06:00 01/23/20 04:24 Nacl 0.9% 1000 Ml IV 125 mls/hr DIRECT ANDRA Administration Heparin Sodium/Sodium Chloride 25,000 unit in 500 mls @ 29 mls/hr 01/22/20 18:00 01/22/20 19:46 Heparin/ 0.45% Nacl-25,000 Unit/500 Ml IV 20 mls TITR ANDRA Administration Protocol 1,450 UNITS/HR Piperacillin Sod/Tazobactam Sod 4.5 gm in 100 mls @ 200 mls/hr 01/22/20 18:00 01/23/20 09:39 Zosyn/Ns 4.5gm/100ml IV 200 mls/hr Q8H ANDRA Administration Protocol Magnesium Hydroxide 30 ml 01/22/20 05:47 Milk Of Magnesia PO Q4H PRN Constipation Ondansetron HCl 4 mg 01/22/20 05:47 01/23/20 08:12 Zofran IV 4 mg Q8H PRN Administration Nausea And Vomiting Sodium Chloride 10 ml 01/22/20 10:00 01/23/20 09:39 Sodium Chloride Flush Syringe 10 Ml IV 10 ml BID ANDRA Administration Sodium Chloride 10 ml 01/22/20 05:47 Sodium Chloride Flush Syringe 10 Ml IV PRN PRN LINE FLUSH
--- NOTE | 2020-01-23 13:34 | Gastroenterology Progress Note ---
Assessment and Plan 1. SMA thrombus - s/p embolectomy by IR and on heparin drip. abd pain appears improved. further management per IR/surgery. will sign off, please call as needed. Subjective Date of service: 01/23/20 Principal diagnosis: abd pain Interval history: events from yesterday reviewed, in ICU, feels better. less abd pain compared to yesterday Objective - Constitutional Vitals: Temp Pulse Resp BP Pulse Ox 98.1 F 66 16 140/71 98 01/23/20 12:00 01/23/20 12:00 01/23/20 12:00 01/23/20 12:00 01/23/20 12:00 General appearance: no acute distress - Respiratory Respiratory effort: normal Respiratory: bilateral: CTA - Cardiovascular Rhythm: regular Heart Sounds: Present: S1 & S2 - Gastrointestinal General gastrointestinal: Present: soft, tender, non-distended - Labs CBC & Chem 7: 01/23/20 02:21 01/23/20 02:21 Labs: Laboratory Results - last 24 hr 01/22/20 01/22/20 01/22/20 21:17 21:17 21:17 WBC 13.6 H RBC 4.15 Hgb 14.2 Hct 41.8 MCV 101 H MCH 34 H MCHC 34 RDW 13.7 Plt Count 133 L Lymph % (Auto) 13.6 [place] % (Auto) 9.7 H Eos % (Auto) 0.9 Baso % (Auto) 0.3 Lymph # (Auto) 1.8 [place] # (Auto) 1.3 H Eos # (Auto) 0.1 Baso # (Auto) 0.0 Seg Neutrophils % 75.5 H Seg Neutrophils # 10.3 H PT 14.8 INR 1.18 H APTT 90.0 H* Heparin Anti-Xa Level Sodium Potassium Chloride Carbon Dioxide Anion Gap BUN Creatinine Estimated GFR BUN/Creatinine Ratio Glucose Lactic Acid 1.10 Calcium 01/22/20 01/23/20 01/23/20 21:17 02:21 02:21 WBC 12.3 H RBC 3.83 Hgb 13.2 Hct 38.8 MCV 101 H MCH 34 H MCHC 34 RDW 13.6 Plt Count 131 L Lymph % (Auto) 18.2 [place] % (Auto) 10.3 H Eos % (Auto) 1.2 Baso % (Auto) 0.3 Lymph # (Auto) 2.2 [place] # (Auto) 1.3 H Eos # (Auto) 0.1 Baso # (Auto) 0.0 Seg Neutrophils % 70.0 Seg Neutrophils # 8.6 H PT 13.8 INR 1.08 APTT Heparin Anti-Xa Level 0.41 Sodium 138 Potassium 4.2 Chloride 108.3 H Carbon Dioxide 23 Anion Gap 11 BUN 11 Creatinine 0.4 L Estimated GFR > 60 BUN/Creatinine Ratio 28 Glucose 110 H Lactic Acid Calcium 8.0 L 01/23/20 01/23/20 02:21 02:21 WBC RBC Hgb Hct MCV MCH MCHC RDW Plt Count Lymph % (Auto) [place] % (Auto) Eos % (Auto) Baso % (Auto) Lymph # (Auto) [place] # (Auto) Eos # (Auto) Baso # (Auto) Seg Neutrophils % Seg Neutrophils # PT INR APTT Heparin Anti-Xa Level Sodium 141 Potassium 3.8 Chloride 106.9 Carbon Dioxide 24 Anion Gap 14 BUN 9 Creatinine 0.5 L Estimated GFR > 60 BUN/Creatinine Ratio 18 Glucose 107 H Lactic Acid 0.70 Calcium 8.0 L
--- NOTE | 2020-01-23 13:34 | Progress Note ---
Subjective Date of service: 01/23/20 Narrative: pt looks good; c/o back pain; minimal to no abd discomfort Pt begging to be moved/placed in chair-- apparently RN had refused to do so as there was no activity order placed. Pt wants to eat and is hungry PE: obese; soft, minimal to no TTP lower abd Pt wincing to move in bed secondary to back pain WBC down; lactate normal/dec bicarb normal A/P: Ischemic enteritis--- resolving after vasc surg intervention; no evid worsening ischemia; Full liquid diet-- adv to reg tomorrow if sadie and no inc pain Renal/Splenic infarcts-- pt needs ECHO/work-up for source of suspected embolic phenomena. Thoracic aorta abnormality on CT chest-- see Dr. Suárez's note; NTD Chronic back pain--- RN instructed to get pt out of bed to chair brian Objective Vital Signs - 12hr 01/23/20 01/23/20 01/23/20 01:40 01:50 02:00 Temperature Pulse Rate 73 74 72 Pulse Rate [ From Monitor] Respiratory 19 18 20 Rate Blood Pressure 114/64 114/64 120/60 O2 Sat by Pulse 96 97 97 Oximetry 01/23/20 01/23/20 01/23/20 02:10 02:20 02:30 Temperature Pulse Rate 77 73 71 Pulse Rate [ From Monitor] Respiratory 19 18 19 Rate Blood Pressure 120/60 132/74 132/74 O2 Sat by Pulse 96 97 97 Oximetry 01/23/20 01/23/20 01/23/20 02:40 02:51 03:00 Temperature Pulse Rate 72 76 70 Pulse Rate [ From Monitor] Respiratory 20 19 16 Rate Blood Pressure 128/75 132/74 128/75 O2 Sat by Pulse 96 96 96 Oximetry 01/23/20 01/23/20 01/23/20 03:10 03:20 03:30 Temperature Pulse Rate 80 79 71 Pulse Rate [ From Monitor] Respiratory 16 12 21 Rate Blood Pressure 128/75 137/72 128/75 O2 Sat by Pulse 96 97 93 Oximetry 01/23/20 01/23/20 01/23/20 03:40 03:50 04:00 Temperature 98.9 F Pulse Rate 69 69 72 Pulse Rate [ From Monitor] Respiratory 21 21 19 Rate Blood Pressure 128/75 128/75 130/77 O2 Sat by Pulse 93 94 93 Oximetry 01/23/20 01/23/20 01/23/20 04:10 04:20 04:30 Temperature Pulse Rate 73 73 75 Pulse Rate [ From Monitor] Respiratory 20 20 21 Rate Blood Pressure 130/77 130/77 130/77 O2 Sat by Pulse 93 94 94 Oximetry 01/23/20 01/23/20 01/23/20 04:40 04:50 05:00 Temperature Pulse Rate 73 75 70 Pulse Rate [ From Monitor] Respiratory 21 21 19 Rate Blood Pressure 130/77 130/77 139/83 O2 Sat by Pulse 96 96 96 Oximetry 01/23/20 01/23/20 01/23/20 05:10 05:20 05:25 Temperature Pulse Rate 74 73 71 Pulse Rate [ From Monitor] Respiratory 18 18 Rate Blood Pressure 139/83 139/83 O2 Sat by Pulse 96 95 Oximetry 01/23/20 01/23/20 01/23/20 05:30 05:40 05:50 Temperature Pulse Rate 71 74 68 Pulse Rate [ From Monitor] Respiratory 21 18 13 Rate Blood Pressure 139/83 139/83 139/83 O2 Sat by Pulse 95 96 97 Oximetry 01/23/20 01/23/20 01/23/20 06:00 06:10 06:20 Temperature Pulse Rate 71 71 77 Pulse Rate [ From Monitor] Respiratory 18 21 18 Rate Blood Pressure 147/82 147/82 147/82 O2 Sat by Pulse 97 97 96 Oximetry 01/23/20 01/23/20 01/23/20 06:30 06:40 06:50 Temperature Pulse Rate 72 72 80 Pulse Rate [ From Monitor] Respiratory 19 18 17 Rate Blood Pressure 147/82 147/82 147/82 O2 Sat by Pulse 96 96 96 Oximetry 01/23/20 01/23/20 01/23/20 07:00 07:10 07:20 Temperature Pulse Rate 71 71 78 Pulse Rate [ From Monitor] Respiratory 19 22 16 Rate Blood Pressure 145/80 145/80 145/80 O2 Sat by Pulse 96 95 95 Oximetry 01/23/20 01/23/20 01/23/20 07:30 07:40 07:50 Temperature Pulse Rate 80 72 74 Pulse Rate [ From Monitor] Respiratory 15 22 20 Rate Blood Pressure 145/80 145/80 145/80 O2 Sat by Pulse 95 96 97 Oximetry 01/23/20 01/23/20 01/23/20 08:00 08:10 08:20 Temperature 98.4 F Pulse Rate 82 78 72 Pulse Rate [ 82 From Monitor] Respiratory 16 19 16 Rate Blood Pressure 146/61 146/61 146/61 O2 Sat by Pulse 97 Oximetry 01/23/20 01/23/20 01/23/20 08:30 08:40 08:51 Temperature Pulse Rate 72 72 74 Pulse Rate [ From Monitor] Respiratory 22 18 20 Rate Blood Pressure 146/61 146/61 146/61 O2 Sat by Pulse 94 95 95 Oximetry 01/23/20 01/23/20 01/23/20 09:01 09:11 09:21 Temperature Pulse Rate 71 68 81 Pulse Rate [ From Monitor] Respiratory 19 19 21 Rate Blood Pressure 124/72 146/61 146/61 O2 Sat by Pulse 96 97 97 Oximetry 01/23/20 01/23/20 01/23/20 09:30 09:40 09:50 Temperature Pulse Rate 70 80 71 Pulse Rate [ From Monitor] Respiratory 20 15 19 Rate Blood Pressure 146/61 124/72 124/72 O2 Sat by Pulse 96 97 97 Oximetry 01/23/20 01/23/20 01/23/20 10:00 10:10 10:20 Temperature Pulse Rate 72 72 73 Pulse Rate [ From Monitor] Respiratory 19 21 18 Rate Blood Pressure 143/74 143/74 143/74 O2 Sat by Pulse 98 98 97 Oximetry 01/23/20 01/23/20 01/23/20 10:30 10:40 10:50 Temperature Pulse Rate 89 71 71 Pulse Rate [ From Monitor] Respiratory 15 20 17 Rate Blood Pressure 143/74 143/74 143/74 O2 Sat by Pulse 97 97 97 Oximetry 01/23/20 01/23/20 01/23/20 11:00 11:10 11:20 Temperature Pulse Rate 69 70 70 Pulse Rate [ From Monitor] Respiratory 20 20 13 Rate Blood Pressure 135/75 143/74 143/74 O2 Sat by Pulse 96 97 98 Oximetry 01/23/20 01/23/20 01/23/20 11:30 11:40 11:50 Temperature Pulse Rate 72 70 68 Pulse Rate [ From Monitor] Respiratory 11 L 12 18 Rate Blood Pressure 143/74 143/74 143/74 O2 Sat by Pulse 98 98 98 Oximetry 01/23/20 12:00 Temperature 98.1 F Pulse Rate 66 Pulse Rate [ From Monitor] Respiratory 16 Rate Blood Pressure 140/71 O2 Sat by Pulse 98 Oximetry - Labs 01/23/20 02:21 01/23/20 02:21 Diabetes panel 01/22/20 01/23/20 Range/Units 21:17 02:21 Sodium 138 141 (137-145) mmol/L Potassium 4.2 3.8 (3.6-5.0) mmol/L Chloride 108.3 H 106.9 (98-107) mmol/L Carbon Dioxide 23 24 (22-30) mmol/L BUN 11 9 (7-17) mg/dL Creatinine 0.4 L 0.5 L (0.6-1.2) mg/dL Glucose 110 H 107 H (65-100) mg/dL Calcium 8.0 L 8.0 L (8.4-10.2) mg/dL Calcium panel 01/22/20 01/23/20 Range/Units 21:17 02:21 Calcium 8.0 L 8.0 L (8.4-10.2) mg/dL Pituitary panel 01/22/20 01/23/20 Range/Units 21:17 02:21 Sodium 138 141 (137-145) mmol/L Potassium 4.2 3.8 (3.6-5.0) mmol/L Chloride 108.3 H 106.9 (98-107) mmol/L Carbon Dioxide 23 24 (22-30) mmol/L BUN 11 9 (7-17) mg/dL Creatinine 0.4 L 0.5 L (0.6-1.2) mg/dL Glucose 110 H 107 H (65-100) mg/dL Calcium 8.0 L 8.0 L (8.4-10.2) mg/dL Adrenal panel 01/22/20 01/23/20 Range/Units 21:17 02:21 Sodium 138 141 (137-145) mmol/L Potassium 4.2 3.8 (3.6-5.0) mmol/L Chloride 108.3 H 106.9 (98-107) mmol/L Carbon Dioxide 23 24 (22-30) mmol/L BUN 11 9 (7-17) mg/dL Creatinine 0.4 L 0.5 L (0.6-1.2) mg/dL Glucose 110 H 107 H (65-100) mg/dL Calcium 8.0 L 8.0 L (8.4-10.2) mg/dL
[2020-01-23] MEDS: PANTOPRAZOLE 40 MG INJ IV SCH ×3 (16:10→21:25)
--- NOTE | 2020-01-23 16:42 | Consultation ---
History of Present Illness Consult date: 01/23/20 Requesting physician: VALENTINE GUERRERO Reason for consult: other (Critical care management) History of present illness: 59-year-old white female with known history of hypertension, hyperlipidemia, COPD and fibromyalgia presenting to the emergency room today complaining of generalized abdominal pain. Pain started about 6 to 8 hours prior to reporting to the emergency room. Pain is said to be more in the right upper quadrant radiating to the right flank and the back. She has had associated nausea and vomiting and also had an episode of diarrhea. She has had multiple episodes of nausea and vomiting today. She denied any fever or chills, no chest pain or shortness of breath, no headache or dizziness, no hematuria or dysuria, denies any sick contacts and no recent travel. Denies any contact with anyone with COVID-19. Work-up in the emergency room today reveals leukocytosis of 14. CT of the abdomen and pelvis was remarkable for right renal infarction. Patient was placed on IV fluid and IV analgesic medication with improvement. Patient was admitted for intractable nausea and vomiting and abdominal pain. She is s/p successful thrombectomy of the main SMA and colic branches with some small distal residual thrombus noted by vascular She was started on heparin drip and admitted to the ICU for close monitoring I have been consulted for critical care management. Patient was seen and examined. Vitals, labs, medications, chart reviewed. She is an everyday smoker. States she has chronic back pain. She has some abdominal pain but much improved. REVIEW OF SYSTEMS Constitutional: no fever, no chills Ears, nose, mouth and throat: no nasal congestion, no sore throat Cardiovascular: no chest pain, no palpitations Respiratory: no cough, no shortness of breath Gastrointestinal: abdominal pain, no nausea, no vomiting, no diarrhea, no hematemesis, No coffee ground emesis, no BRBPR, no melena Genitourinary Female: no flank pain, no dysuria, no hematuria Musculoskeletal: no neck pain, no low back pain Integumentary: no rash, no pruritis Neurological: no headaches, no confusion Psychiatric: no anxiety, no depression Past History Past Medical History: arthritis, COPD, hypertension, hyperlipidemia, other (Fibromyalgia) Past Surgical History: hysterectomy (Laparoscopic hysterectomy) Social history: smoking (Current daily smoker) Family history: no significant family history Medications and Allergies Allergies Allergy/AdvReac Type Severity Reaction Status Date / Time No Known Allergies Allergy Unverified 07/15/15 22:25 Home Medications Medication Instructions Recorded Confirmed Last Taken Type HYDROcodone/APAP 10-325 [[place] 1 each PO Q6HR PRN #20 tablet 07/16/15 01/23/20 Unknown Rx 10-325 mg TAB] AtorvaSTATin [Lipitor] 40 mg PO QHS 01/23/20 01/23/20 Unknown History Carvedilol Phosphate [Carvedilol 40 mg PO BID 01/23/20 01/23/20 Unknown History ER] DULoxetine [Cymbalta] 30 mg PO BID 01/23/20 01/23/20 Unknown History Active Meds: Active Medications Acetaminophen (Tylenol) 650 mg PO Q4H PRN PRN Reason: Pain MILD(1-3)/Fever >100.5/RUCKER Hydrocodone Bitart/Acetaminophen ([place] 10/325) 1 each PO Q6H PRN PRN Reason: Pain, Moderate (4-6) Aspirin (Halfprin Ec) 81 mg PO QDAY ANDRA Last Admin: 01/23/20 09:38 Dose: 81 mg Documented by: Hydromorphone HCl (Dilaudid) 0.5 mg IV Q3H PRN PRN Reason: Pain , Severe (7-10) Last Admin: 01/23/20 08:10 Dose: 0.5 mg Documented by: Sodium Chloride (Nacl 0.9% 1000 Ml) 1,000 mls @ 125 mls/hr IV DIRECT ANDRA Last Admin: 01/23/20 14:12 Dose: 125 mls/hr Documented by: Heparin Sodium/Sodium Chloride (Heparin/ 0.45% Nacl-25,000 Unit/500 Ml) 25,000 unit in 500 mls @ 29 mls/hr IV TITR ANDRA; Protocol Last Admin: 01/22/20 19:46 Dose: 20 mls Documented by: Piperacillin Sod/Tazobactam Sod (Zosyn/Ns 4.5gm/100ml) 4.5 gm in 100 mls @ 200 mls/hr IV Q8H ANDRA; Protocol Last Admin: 01/23/20 09:39 Dose: 200 mls/hr Documented by: Magnesium Hydroxide (Milk Of Magnesia) 30 ml PO Q4H PRN PRN Reason: Constipation Ondansetron HCl (Zofran) 4 mg IV Q8H PRN PRN Reason: Nausea And Vomiting Last Admin: 01/23/20 08:12 Dose: 4 mg Documented by: Pantoprazole Sodium (Protonix) 40 mg IV BID [facility] Last Admin: 01/23/20 16:10 Dose: 40 mg Documented by: Sodium Chloride (Sodium Chloride Flush Syringe 10 Ml) 10 ml IV BID [facility] Last Admin: 01/23/20 09:39 Dose: 10 ml Documented by: Sodium Chloride (Sodium Chloride Flush Syringe 10 Ml) 10 ml IV PRN PRN PRN Reason: LINE FLUSH Physical Examination Vital signs: Vital Signs Temp Pulse Resp BP Pulse Ox 98.1 F 70 18 172/65 96 01/22/20 01:03 01/22/20 01:03 01/22/20 01:03 01/22/20 01:03 01/22/20 01:03 General appearance: no acute distress, alert Eyes: non-icteric ENT: oropharynx dry Neck: supple, no lymphadenopathy, no JVD Effort: normal Ascultation: Bilateral: clear, diminished breath sounds Cardiovascular: regular rate and rhythm, other (s1,s2) Gastrointestinal: normoactive bowel sounds, soft, tender (Mild epigastric, no rebound), non-distended Integumentary: normal Extremities: no cyanosis, no edema Musculoskeletal: no deformities normal mental status, non-focal exam, motor strength normal and mood appropriate, affect normal Results - Laboratory Findings CBC and BMP: 01/23/20 02:21 01/23/20 02:21 PT/INR, D-dimer PT 13.8 Sec. (12.2-14.9) 01/23/20 02:21 INR 1.08 (0.87-1.13) 01/23/20 02:21 Abnormal lab findings: Abnormal Labs 01/22/20 01/22/20 01/22/20 01:38 01:38 21:17 WBC 14.7 H Hgb 15.0 H MCV 100 H MCH 35 H MCHC 35 H Plt Count [place] % (Auto) 8.2 H [place] # (Auto) 1.2 H Seg Neutrophils % 71.2 H Seg Neutrophils # 10.5 H INR 1.18 H APTT 90.0 H* Chloride Creatinine Glucose 142 H Calcium Alkaline Phosphatase 157 H 01/22/20 01/22/20 01/23/20 21:17 21:17 02:21 WBC 13.6 H 12.3 H Hgb MCV 101 H 101 H MCH 34 H 34 H MCHC Plt Count 133 L 131 L [place] % (Auto) 9.7 H 10.3 H [place] # (Auto) 1.3 H 1.3 H Seg Neutrophils % 75.5 H Seg Neutrophils # 10.3 H 8.6 H INR APTT Chloride 108.3 H Creatinine 0.4 L Glucose 110 H Calcium 8.0 L Alkaline Phosphatase 01/23/20 02:21 WBC Hgb MCV MCH MCHC Plt Count [place] % (Auto) [place] # (Auto) Seg Neutrophils % Seg Neutrophils # INR APTT Chloride Creatinine 0.5 L Glucose 107 H Calcium 8.0 L Alkaline Phosphatase - Diagnostic Findings Additional studies: CT abdomen Right renal infarct and enteritis of the small bowel. CT angiogram performed demonstrating distal SMA thrombus. Assessment and Plan Mid SMA thrombus/bowel mesenteric ischemia -CTA revealed focal occlusion of the distal SMA with prominent mural thickening and inflammatory changes of the small bowel in the central abdomen compatible with ischemic enteritis s/p percutaneous embolectomy Abdominal pain. Hypertension Renal infarct Leukocytosis- resolved Tobacco use disorder/Nicotine dependence -Continue permissive hypertension -Pain management -Serial abdominal exams -Start PPI -Smoking cessation counselling, Nicotine withdrawal precautions -On therapeutic heparin per vascular recommendation -PT/OT, mobility -Initiate liquid diet per Surgery recommendations and monitor closely -Chronic home medications as clinically indicated -Will recommend to hold off on empiric antibiotics and monitor WCC and monitor patient clinically -All other care per attending and other consultants Will follow Stable from a critical care standpoint to manage on Telemetry floor.
--- NOTE | 2020-01-23 16:54 | Progress Note ---
Assessment and Plan 59-year-old female with past medical history of smoking who presents with severe right lower quadrant pain out of proportion with CT scan originally demonstrating right renal infarct and enteritis of the small bowel. Status post mesenteric artery thrombectomy from a percutaneous approach to the left radial artery which was successful with thrombectomy of most of the thrombus. Thrombectomy had to be performed of the middle colic, right colic, SMA, and distal SMA vessel. Heparin drip and baby aspirin currently. Abdominal pain has greatly improved. Lactic acid has improved. WBC count is declining. On Zosyn for bowel ischemia. Discussed with patient that she may still require laparoscopy or laparotomy which he understands. Will need to continue being monitored in ICU. Has mild epigastric pain and started patient on Protonix empirically IV. Thoracic aorta demonstrates ulcerated plaque, likely etiology for showering even t. No significant type B dissection noted. Do not recommend aggressive hypertensive management at this time as the risks of hypertensive management outweigh the benefits. No lower extremity or upper extremity ischemia noted. No stroke based on patient's exam. Continue to follow with general surgery. Subjective Date of service: 01/23/20 Principal diagnosis: abd pain Interval history: Abdominal pain significantly improved since yesterday. Intermittently has some mild/minor discomfort in the right lower quadrant. Complained of some epigastric discomfort that improved with changing her position. Has back pain. Palpable left radial and ulnar pulses, palpable right radial pulse and ulnar pulse, palpable dorsalis pedis pulses bilaterally. Objective - Constitutional Vitals: Vital Signs - 12hr 01/23/20 01/23/20 01/23/20 05:00 05:10 05:20 Temperature Pulse Rate 70 74 73 Pulse Rate [ From Monitor] Respiratory 19 18 18 Rate Blood Pressure 139/83 139/83 139/83 O2 Sat by Pulse 96 96 95 Oximetry 01/23/20 01/23/20 01/23/20 05:25 05:30 05:40 Temperature Pulse Rate 71 71 74 Pulse Rate [ From Monitor] Respiratory 21 18 Rate Blood Pressure 139/83 139/83 O2 Sat by Pulse 95 96 Oximetry 01/23/20 01/23/20 01/23/20 05:50 06:00 06:10 Temperature Pulse Rate 68 71 71 Pulse Rate [ From Monitor] Respiratory 13 18 21 Rate Blood Pressure 139/83 147/82 147/82 O2 Sat by Pulse 97 97 97 Oximetry 01/23/20 01/23/20 01/23/20 06:20 06:30 06:40 Temperature Pulse Rate 77 72 72 Pulse Rate [ From Monitor] Respiratory 18 19 18 Rate Blood Pressure 147/82 147/82 147/82 O2 Sat by Pulse 96 96 96 Oximetry 01/23/20 01/23/20 01/23/20 06:50 07:00 07:10 Temperature Pulse Rate 80 71 71 Pulse Rate [ From Monitor] Respiratory 17 19 22 Rate Blood Pressure 147/82 145/80 145/80 O2 Sat by Pulse 96 96 95 Oximetry 01/23/20 01/23/20 01/23/20 07:20 07:30 07:40 Temperature Pulse Rate 78 80 72 Pulse Rate [ From Monitor] Respiratory 16 15 22 Rate Blood Pressure 145/80 145/80 145/80 O2 Sat by Pulse 95 95 96 Oximetry 01/23/20 01/23/20 01/23/20 07:50 08:00 08:10 Temperature 98.4 F Pulse Rate 74 82 78 Pulse Rate [ 82 From Monitor] Respiratory 20 16 19 Rate Blood Pressure 145/80 146/61 146/61 O2 Sat by Pulse 97 97 Oximetry 01/23/20 01/23/20 01/23/20 08:20 08:30 08:40 Temperature Pulse Rate 72 72 72 Pulse Rate [ From Monitor] Respiratory 16 22 18 Rate Blood Pressure 146/61 146/61 146/61 O2 Sat by Pulse 94 95 Oximetry 01/23/20 01/23/20 01/23/20 08:51 09:01 09:11 Temperature Pulse Rate 74 71 68 Pulse Rate [ From Monitor] Respiratory 20 19 19 Rate Blood Pressure 146/61 124/72 146/61 O2 Sat by Pulse 95 96 97 Oximetry 01/23/20 01/23/20 01/23/20 09:21 09:30 09:40 Temperature Pulse Rate 81 70 80 Pulse Rate [ From Monitor] Respiratory 21 20 15 Rate Blood Pressure 146/61 146/61 124/72 O2 Sat by Pulse 97 96 97 Oximetry 01/23/20 01/23/20 01/23/20 09:50 10:00 10:10 Temperature Pulse Rate 71 72 72 Pulse Rate [ From Monitor] Respiratory 19 19 21 Rate Blood Pressure 124/72 143/74 143/74 O2 Sat by Pulse 97 98 98 Oximetry 01/23/20 01/23/20 01/23/20 10:20 10:30 10:40 Temperature Pulse Rate 73 89 71 Pulse Rate [ From Monitor] Respiratory 18 15 20 Rate Blood Pressure 143/74 143/74 143/74 O2 Sat by Pulse 97 97 97 Oximetry 01/23/20 01/23/20 01/23/20 10:50 11:00 11:10 Temperature Pulse Rate 71 69 70 Pulse Rate [ From Monitor] Respiratory 17 20 20 Rate Blood Pressure 143/74 135/75 143/74 O2 Sat by Pulse 97 96 97 Oximetry 01/23/20 01/23/20 01/23/20 11:20 11:30 11:40 Temperature Pulse Rate 70 72 70 Pulse Rate [ From Monitor] Respiratory 13 11 L 12 Rate Blood Pressure 143/74 143/74 143/74 O2 Sat by Pulse 98 98 98 Oximetry 01/23/20 01/23/20 01/23/20 11:50 12:00 12:10 Temperature 98.1 F Pulse Rate 68 66 73 Pulse Rate [ 66 From Monitor] Respiratory 18 16 22 Rate Blood Pressure 143/74 140/71 140/71 O2 Sat by Pulse 98 98 96 Oximetry 01/23/20 01/23/20 01/23/20 12:20 12:30 12:40 Temperature Pulse Rate 81 68 73 Pulse Rate [ From Monitor] Respiratory 12 21 12 Rate Blood Pressure 140/71 140/71 140/71 O2 Sat by Pulse 98 97 97 Oximetry 01/23/20 01/23/20 01/23/20 12:50 13:00 13:10 Temperature Pulse Rate 73 73 68 Pulse Rate [ From Monitor] Respiratory 15 18 20 Rate Blood Pressure 140/71 139/70 140/71 O2 Sat by Pulse 97 97 95 Oximetry 01/23/20 01/23/20 01/23/20 13:20 13:30 13:40 Temperature Pulse Rate 74 71 69 Pulse Rate [ From Monitor] Respiratory 16 22 20 Rate Blood Pressure 140/71 140/71 140/71 O2 Sat by Pulse 94 95 95 Oximetry 01/23/20 01/23/20 01/23/20 13:50 14:00 14:10 Temperature Pulse Rate 77 73 66 Pulse Rate [ From Monitor] Respiratory 11 L 21 21 Rate Blood Pressure 140/71 153/86 153/86 O2 Sat by Pulse 96 95 97 Oximetry 11/29/20 11/29/20 11/29/20 14:20 14:30 14:40 Temperature Pulse Rate 72 70 72 Pulse Rate [ From Monitor] Respiratory 23 19 19 Rate Blood Pressure 153/86 153/86 153/86 O2 Sat by Pulse 96 95 97 Oximetry 01/23/20 01/23/20 01/23/20 14:50 15:00 15:10 Temperature Pulse Rate 75 72 72 Pulse Rate [ From Monitor] Respiratory 20 23 21 Rate Blood Pressure 153/86 146/80 146/80 O2 Sat by Pulse 97 97 98 Oximetry 01/23/20 01/23/20 01/23/20 15:20 15:30 15:39 Temperature 97.9 F Pulse Rate 69 78 Pulse Rate [ From Monitor] Respiratory 23 19 Rate Blood Pressure 146/80 146/80 O2 Sat by Pulse 96 95 Oximetry 01/23/20 01/23/20 01/23/20 15:40 15:50 16:00 Temperature Pulse Rate 84 69 69 Pulse Rate [ 69 From Monitor] Respiratory 18 20 20 Rate Blood Pressure 146/80 146/80 127/61 O2 Sat by Pulse 94 96 96 Oximetry 01/23/20 01/23/20 01/23/20 16:10 16:20 16:30 Temperature Pulse Rate 74 77 79 Pulse Rate [ From Monitor] Respiratory 22 23 13 Rate Blood Pressure 146/80 146/80 146/80 O2 Sat by Pulse 98 96 98 Oximetry General appearance: Present: mild distress (Very mild right lower quadrant pain which occurs intermittently ; mostly has back pain which is chronic and she has had for years with numerous failed back procedures; no chest pain) - EENT Eyes: EOM intact ENT: hearing intact Extremities: abnormal (see subjective) - Gastrointestinal General gastrointestinal: Present: tender (Minimal tenderness right lower quadrant pain on deep palpation, no rebound, no guarding) - Psychiatric Psychiatric: appropriate mood/affect, cooperative - Labs CBC & Chem 7: 01/23/20 02:21 01/23/20 02:21 Labs: Abnormal lab results 01/22/20 01/22/20 01/22/20 Range/Units 21:17 21:17 21:17 WBC 13.6 H (4.5-11.0) K/mm3 MCV 101 H (79-97) fl MCH 34 H (28-32) pg Plt Count 133 L (140-440) K/mm3 [place] % (Auto) 9.7 H (0.0-7.3) % [place] # (Auto) 1.3 H (0.0-0.8) K/mm3 Seg Neutrophils % 75.5 H (40.0-70.0) % Seg Neutrophils # 10.3 H (1.8-7.7) K/mm3 INR 1.18 H (0.87-1.13) APTT 90.0 H* (24.2-36.6) Sec. Chloride 108.3 H (98-107) mmol/L Creatinine 0.4 L (0.6-1.2) mg/dL Glucose 110 H (65-100) mg/dL Calcium 8.0 L (8.4-10.2) mg/dL 01/23/20 01/23/20 Range/Units 02:21 02:21 WBC 12.3 H (4.5-11.0) K/mm3 MCV 101 H (79-97) fl MCH 34 H (28-32) pg Plt Count 131 L (140-440) K/mm3 [place] % (Auto) 10.3 H (0.0-7.3) % [place] # (Auto) 1.3 H (0.0-0.8) K/mm3 Seg Neutrophils % (40.0-70.0) % Seg Neutrophils # 8.6 H (1.8-7.7) K/mm3 INR (0.87-1.13) APTT (24.2-36.6) Sec. Chloride (98-107) mmol/L Creatinine 0.5 L (0.6-1.2) mg/dL Glucose 107 H (65-100) mg/dL Calcium 8.0 L (8.4-10.2) mg/dL Medications & Allergies - Medications Allergies/Adverse Reactions: Allergies No Known Allergies Allergy (Unverified 07/15/15 22:25) Home Medications: Home Medications Medication Instructions Recorded Confirmed Last Taken Type HYDROcodone/APAP 10-325 [[place] 1 each PO Q6HR PRN #20 tablet 07/16/15 01/23/20 Unknown Rx 10-325 mg TAB] AtorvaSTATin [Lipitor] 40 mg PO QHS 01/23/20 01/23/20 Unknown History Carvedilol Phosphate [Carvedilol 40 mg PO BID 01/23/20 01/23/20 Unknown History ER] DULoxetine [Cymbalta] 30 mg PO BID 01/23/20 01/23/20 Unknown History Active Medications: Generic Name Dose Route Start Last Admin Trade Name Freq PRN Reason Stop Dose Admin Acetaminophen 650 mg 01/22/20 05:47 Tylenol PO Q4H PRN Pain MILD(1-3)/Fever >100.5/RUCKER Hydrocodone Bitart/Acetaminophen 1 each 01/23/20 12:34 [place] 10/325 PO Q6H PRN Pain, Moderate (4-6) Aspirin 81 mg 01/23/20 10:00 01/23/20 09:38 Halfprin Ec PO 81 mg QDAY ANDRA Administration Hydromorphone HCl 0.5 mg 01/22/20 05:47 01/23/20 08:10 Dilaudid IV 0.5 mg Q3H PRN Administration Pain , Severe (7-10) Sodium Chloride 1,000 mls @ 125 mls/hr 01/22/20 06:00 01/23/20 14:12 Nacl 0.9% 1000 Ml IV 125 mls/hr DIRECT ANDRA Administration Heparin Sodium/Sodium Chloride 25,000 unit in 500 mls @ 29 mls/hr 01/22/20 18:00 01/22/20 19:46 Heparin/ 0.45% Nacl-25,000 Unit/500 Ml IV 20 mls TITR ANDRA Administration Protocol 1,450 UNITS/HR Piperacillin Sod/Tazobactam Sod 4.5 gm in 100 mls @ 200 mls/hr 01/22/20 18:00 01/23/20 09:39 Zosyn/Ns 4.5gm/100ml IV 200 mls/hr Q8H ANDRA Administration Protocol Magnesium Hydroxide 30 ml 01/22/20 05:47 Milk Of Magnesia PO Q4H PRN Constipation Ondansetron HCl 4 mg 01/22/20 05:47 01/23/20 08:12 Zofran IV 4 mg Q8H PRN Administration Nausea And Vomiting Pantoprazole Sodium 40 mg 01/23/20 16:00 01/23/20 16:10 Protonix IV 40 mg BID ANDRA Administration Sodium Chloride 10 ml 01/22/20 10:00 01/23/20 09:39 Sodium Chloride Flush Syringe 10 Ml IV 10 ml BID ANDRA Administration Sodium Chloride 10 ml 01/22/20 05:47 Sodium Chloride Flush Syringe 10 Ml IV PRN PRN LINE FLUSH
[2020-01-23] MEDS: HEPARIN/ 0.45% NACL DRIP 25,000 UNIT/500 ML BAG IV SCH (20:25)
[2020-01-24] MEDS: HYDROcodone/ACETAMINOPHEN 10-325MG TAB PO PRN ×3 (00:20→20:55)
[2020-01-24] MEDS: PIPERACIL/TAZOBACTA 4.5/NS 100 4.5 GM/100 ML VIAL IV SCH ×3 (02:11→19:46)
[2020-01-24 03:31] LABS: Basophils % (Auto) 0.4 % (0.0-1.8); Eosinophils # (Auto) 0.2 K/mm3 (0.0-0.4); Eosinophils % (Auto) 1.5 % (0.0-4.3); Hematocrit 36.4 % (30.3-42.9); Hemoglobin 12.3 gm/dl (10.1-14.3); Lymphocytes # (Auto) 2.2 K/mm3 (1.2-5.4); Lymphocytes % (Auto) 19.8 % (13.4-35.0); Mean Corpuscular HGB Conc 34 % (30-34); Mean Corpuscular Volume 101 fl (79-97); Monocytes # (Auto) 1.1 K/mm3 (0.0-0.8); Monocytes % (Auto) 10.1 % (0.0-7.3); Platelet Count 127 K/mm3 (140-440); Red Cell Distribution Width 13.5 % (13.2-15.2)
[2020-01-24 03:44] LABS: Blood Urea Nitrogen 8 mg/dL (7-17); Hemolysis Index 13
[2020-01-24 03:45] LABS: BUN/Creatinine Ratio 16
[2020-01-24] MEDS: HYDROmorphone 1 MG/1 ML INJ IV PRN ×3 (05:13→21:47)
[2020-01-24] MEDS: ASPIRIN EC 81 MG TAB PO SCH (09:25)
--- NOTE | 2020-01-24 09:39 | Progress Note ---
Assessment and Plan Impression * Small renal infarct * Ischemic bowel . Status post mesenteric artery thrombectomy * Hypertension * Possible COPD Recommendations * Patient's renal function is stable. * Agree with anticoagulation. hypercoagulable work-up as per primary team * Her blood pressure is under control. * Shall follow patient peripherally. Patient advised to follow-up in the office as outpatient Subjective Date of service: 01/24/20 Principal diagnosis: abd pain Interval history: Patient is comfortable. She does complain of some back pain. Denies any shortness of breath. No ankle edema. No gross hematuria. Patient is currently on a heparin drip Objective - Vital Signs Vital signs: Vital Signs - 12hr 01/23/20 01/23/20 01/23/20 21:40 21:50 22:00 Temperature Pulse Rate 79 69 80 Pulse Rate [ From Monitor] Respiratory 16 19 20 Rate Blood Pressure 135/71 135/71 135/71 O2 Sat by Pulse 99 99 99 Oximetry 01/23/20 01/23/20 01/23/20 22:10 22:20 22:30 Temperature Pulse Rate 72 67 68 Pulse Rate [ From Monitor] Respiratory 22 22 20 Rate Blood Pressure 135/71 135/71 135/71 O2 Sat by Pulse 98 97 97 Oximetry 01/23/20 01/23/20 01/23/20 22:40 22:50 23:00 Temperature Pulse Rate 68 67 67 Pulse Rate [ From Monitor] Respiratory 21 18 26 H Rate Blood Pressure 135/71 135/71 110/54 O2 Sat by Pulse 97 98 98 Oximetry 01/23/20 01/23/20 01/23/20 23:10 23:20 23:30 Temperature Pulse Rate 67 67 Pulse Rate [ From Monitor] Respiratory 20 19 20 Rate Blood Pressure 110/54 110/54 110/54 O2 Sat by Pulse 96 99 96 Oximetry 01/23/20 01/23/20 01/23/20 23:40 23:50 23:51 Temperature Pulse Rate 67 68 68 Pulse Rate [ From Monitor] Respiratory 22 18 19 Rate Blood Pressure 110/54 110/54 110/54 O2 Sat by Pulse 95 94 94 Oximetry 01/24/20 01/24/20 01/24/20 00:00 00:08 00:10 Temperature 98.1 F Pulse Rate 66 67 75 Pulse Rate [ 66 From Monitor] Respiratory 23 19 17 Rate Blood Pressure 127/69 127/69 127/69 O2 Sat by Pulse 95 94 96 Oximetry 01/24/20 01/24/20 01/24/20 00:20 00:30 00:40 Temperature Pulse Rate 72 67 67 Pulse Rate [ From Monitor] Respiratory 25 H 20 22 Rate Blood Pressure 127/69 110/54 110/54 O2 Sat by Pulse 94 93 92 Oximetry 01/24/20 01/24/20 01/24/20 00:50 01:00 01:10 Temperature Pulse Rate 67 69 72 Pulse Rate [ From Monitor] Respiratory 12 19 14 Rate Blood Pressure 110/54 117/55 117/55 O2 Sat by Pulse 92 91 89 Oximetry 01/24/20 01/24/20 01/24/20 01:20 01:30 01:41 Temperature Pulse Rate 68 64 63 Pulse Rate [ From Monitor] Respiratory 15 18 18 Rate Blood Pressure 117/55 117/55 O2 Sat by Pulse 90 90 99 Oximetry 01/24/20 01/24/20 01/24/20 01:51 02:00 02:11 Temperature Pulse Rate 67 67 67 Pulse Rate [ From Monitor] Respiratory 17 15 17 Rate Blood Pressure 117/55 115/53 115/53 O2 Sat by Pulse 99 99 98 Oximetry 01/24/20 01/24/20 01/24/20 02:21 02:30 02:40 Temperature Pulse Rate 67 68 Pulse Rate [ From Monitor] Respiratory 20 19 12 Rate Blood Pressure 115/53 115/53 115/53 O2 Sat by Pulse 98 98 99 Oximetry 01/24/20 01/24/20 01/24/20 02:50 03:00 03:10 Temperature Pulse Rate 77 68 65 Pulse Rate [ From Monitor] Respiratory 14 21 18 Rate Blood Pressure 115/53 135/68 135/68 O2 Sat by Pulse 98 99 100 Oximetry 01/24/20 01/24/20 01/24/20 03:20 03:30 03:40 Temperature Pulse Rate 66 65 65 Pulse Rate [ From Monitor] Respiratory 18 17 16 Rate Blood Pressure 135/68 135/68 135/68 O2 Sat by Pulse 99 100 100 Oximetry 01/24/20 01/24/20 01/24/20 03:50 04:00 04:10 Temperature 98.0 F Pulse Rate 63 66 72 Pulse Rate [ 66 From Monitor] Respiratory 17 18 16 Rate Blood Pressure 135/68 114/55 114/55 O2 Sat by Pulse 99 99 99 Oximetry 01/24/20 01/24/20 01/24/20 04:20 04:30 04:40 Temperature Pulse Rate 64 64 64 Pulse Rate [ From Monitor] Respiratory 21 17 19 Rate Blood Pressure 114/55 114/55 114/55 O2 Sat by Pulse 100 100 99 Oximetry 01/24/20 01/24/20 01/24/20 04:50 05:00 05:10 Temperature Pulse Rate 70 68 Pulse Rate [ From Monitor] Respiratory 15 13 13 Rate Blood Pressure 114/55 150/80 150/80 O2 Sat by Pulse 99 99 Oximetry 01/24/20 01/24/20 01/24/20 05:20 05:30 05:40 Temperature Pulse Rate 70 66 65 Pulse Rate [ From Monitor] Respiratory 21 18 17 Rate Blood Pressure 150/80 150/80 150/80 O2 Sat by Pulse 100 100 100 Oximetry 01/24/20 01/24/20 01/24/20 05:50 06:00 06:10 Temperature Pulse Rate 65 64 66 Pulse Rate [ From Monitor] Respiratory 16 19 18 Rate Blood Pressure 150/80 117/70 117/70 O2 Sat by Pulse 100 97 99 Oximetry - General Appearance General appearance: well-developed, well-nourished, appears stated age EENT: PERRL, mucous membranes moist Neck: no JVD, no thyromegaly, no carotid bruit, supple Respiratory: Present: Clear to Ascultation Cardiology: regular, normal heart rate, S1S2, no murmurs Gastrointestinal: normal, normoactive bowel sounds Integumentary: no rash, other (No edema) - Lab 01/24/20 02:50 01/24/20 02:50 Most recent lab results Calcium 8.0 mg/dL (8.4-10.2) L 01/24/20 02:50 Magnesium 2.00 mg/dL (1.7-2.3) 01/22/20 01:38 Medications & Allergies - Medications Allergies/Adverse Reactions: Allergies No Known Allergies Allergy (Unverified 07/15/15 22:25) Home Medications: Home Medications Medication Instructions Recorded Confirmed Last Taken Type HYDROcodone/APAP 10-325 [Brandon 1 each PO Q6HR PRN #20 tablet 07/16/15 01/23/20 Unknown Rx 10-325 mg TAB] AtorvaSTATin [Lipitor] 40 mg PO QHS 01/23/20 01/23/20 Unknown History Carvedilol Phosphate [Carvedilol 40 mg PO BID 01/23/20 01/23/20 Unknown History ER] DULoxetine [Cymbalta] 30 mg PO BID 01/23/20 01/23/20 Unknown History Active Medications: Generic Name Dose Route Start Last Admin Trade Name Freq PRN Reason Stop Dose Admin Acetaminophen 650 mg 01/22/20 05:47 Tylenol PO Q4H PRN Pain MILD(1-3)/Fever >100.5/RUCKER Hydrocodone Bitart/Acetaminophen 1 each 01/23/20 12:34 01/24/20 00:20 [place] 10/325 PO 1 each Q6H PRN Administration Pain, Moderate (4-6) Aspirin 81 mg 01/23/20 10:00 01/24/20 09:25 Halfprin Ec PO 81 mg QDAY ANDRA Administration Hydromorphone HCl 0.5 mg 01/22/20 05:47 01/24/20 09:23 Dilaudid IV 0.5 mg Q3H PRN Administration Pain , Severe (7-10) Sodium Chloride 1,000 mls @ 125 mls/hr 01/22/20 06:00 01/23/20 14:12 Nacl 0.9% 1000 Ml IV 125 mls/hr DIRECT ANDRA Administration Heparin Sodium/Sodium Chloride 25,000 unit in 500 mls @ 29 mls/hr 01/22/20 18:00 01/24/20 03:46 Heparin/ 0.45% Nacl-25,000 Unit/500 Ml IV 1,100 units/hr TITR ANDRA 22 mls/hr Titration Protocol 1,450 UNITS/HR Piperacillin Sod/Tazobactam Sod 4.5 gm in 100 mls @ 200 mls/hr 01/22/20 18:00 01/24/20 02:11 Zosyn/Ns 4.5gm/100ml IV 200 mls/hr Q8H ANDRA Administration Protocol Magnesium Hydroxide 30 ml 01/22/20 05:47 Milk Of Magnesia PO Q4H PRN Constipation Ondansetron HCl 4 mg 01/22/20 05:47 01/23/20 08:12 Zofran IV 4 mg Q8H PRN Administration Nausea And Vomiting Pantoprazole Sodium 40 mg 01/23/20 16:00 01/23/20 21:25 Protonix IV 40 mg BID ANDRA Administration Sodium Chloride 10 ml 01/22/20 10:00 01/24/20 09:26 Sodium Chloride Flush Syringe 10 Ml IV 10 ml BID ANDRA Administration Sodium Chloride 10 ml 01/22/20 05:47 Sodium Chloride Flush Syringe 10 Ml IV PRN PRN LINE FLUSH
--- NOTE | 2020-01-24 10:10 | Progress Note ---
Assessment and Plan 1. Ischemic Enteritis-- cont abx; adv diet to reg; cont hep drip; improving WBC dec; lactate normal; exam not concerning; etc ECHO pending-- work-up per primary team Ok to floor from my standpoint 2. Splenic/renal infarcts-- cont to monitor 3. Chronic back pain-- convert pt back to home regimen for her back in order to be able to better eval level of abd pain; makes eval more difficult due to underlying need for narcotics for back pain Subjective Date of service: 01/24/20 Patient Reports: Positive: feels better, pain is less (sadie FLD with minimal abd pain that is intermittent and resolves spont quickly; +GI fct) Objective Vital Signs - 12hr 01/23/20 01/23/20 01/23/20 22:10 22:20 22:30 Temperature Pulse Rate 72 67 68 Pulse Rate [ From Monitor] Respiratory 22 22 20 Rate Blood Pressure 135/71 135/71 135/71 O2 Sat by Pulse 98 97 97 Oximetry 01/23/20 01/23/20 01/23/20 22:40 22:50 23:00 Temperature Pulse Rate 68 67 67 Pulse Rate [ From Monitor] Respiratory 21 18 26 H Rate Blood Pressure 135/71 135/71 110/54 O2 Sat by Pulse 97 98 98 Oximetry 01/23/20 01/23/20 01/23/20 23:10 23:20 23:30 Temperature Pulse Rate 67 67 Pulse Rate [ From Monitor] Respiratory 20 19 20 Rate Blood Pressure 110/54 110/54 110/54 O2 Sat by Pulse 96 99 96 Oximetry 01/23/20 01/23/20 01/23/20 23:40 23:50 23:51 Temperature Pulse Rate 67 68 68 Pulse Rate [ From Monitor] Respiratory 22 18 19 Rate Blood Pressure 110/54 110/54 110/54 O2 Sat by Pulse 95 94 94 Oximetry 01/24/20 01/24/20 01/24/20 00:00 00:08 00:10 Temperature 98.1 F Pulse Rate 66 67 75 Pulse Rate [ 66 From Monitor] Respiratory 23 19 17 Rate Blood Pressure 127/69 127/69 127/69 O2 Sat by Pulse 95 94 96 Oximetry 01/24/20 01/24/20 01/24/20 00:20 00:30 00:40 Temperature Pulse Rate 72 67 67 Pulse Rate [ From Monitor] Respiratory 25 H 20 22 Rate Blood Pressure 127/69 110/54 110/54 O2 Sat by Pulse 94 93 92 Oximetry 01/24/20 01/24/20 01/24/20 00:50 01:00 01:10 Temperature Pulse Rate 67 69 72 Pulse Rate [ From Monitor] Respiratory 12 19 14 Rate Blood Pressure 110/54 117/55 117/55 O2 Sat by Pulse 92 91 89 Oximetry 01/24/20 01/24/20 01/24/20 01:20 01:30 01:41 Temperature Pulse Rate 68 64 63 Pulse Rate [ From Monitor] Respiratory 15 18 18 Rate Blood Pressure 117/55 117/55 O2 Sat by Pulse 90 90 99 Oximetry 01/24/20 01/24/20 01/24/20 01:51 02:00 02:11 Temperature Pulse Rate 67 67 67 Pulse Rate [ From Monitor] Respiratory 17 15 17 Rate Blood Pressure 117/55 115/53 115/53 O2 Sat by Pulse 99 99 98 Oximetry 01/24/20 01/24/20 01/24/20 02:21 02:30 02:40 Temperature Pulse Rate 67 68 Pulse Rate [ From Monitor] Respiratory 20 19 12 Rate Blood Pressure 115/53 115/53 115/53 O2 Sat by Pulse 98 98 99 Oximetry 01/24/20 01/24/20 01/24/20 02:50 03:00 03:10 Temperature Pulse Rate 77 68 65 Pulse Rate [ From Monitor] Respiratory 14 21 18 Rate Blood Pressure 115/53 135/68 135/68 O2 Sat by Pulse 98 99 100 Oximetry 01/24/20 01/24/20 01/24/20 03:20 03:30 03:40 Temperature Pulse Rate 66 65 65 Pulse Rate [ From Monitor] Respiratory 18 17 16 Rate Blood Pressure 135/68 135/68 135/68 O2 Sat by Pulse 99 100 100 Oximetry 01/24/20 01/24/20 01/24/20 03:50 04:00 04:10 Temperature 98.0 F Pulse Rate 63 66 72 Pulse Rate [ 66 From Monitor] Respiratory 17 18 16 Rate Blood Pressure 135/68 114/55 114/55 O2 Sat by Pulse 99 99 99 Oximetry 01/24/20 01/24/20 01/24/20 04:20 04:30 04:40 Temperature Pulse Rate 64 64 64 Pulse Rate [ From Monitor] Respiratory 21 17 19 Rate Blood Pressure 114/55 114/55 114/55 O2 Sat by Pulse 100 100 99 Oximetry 01/24/20 01/24/20 01/24/20 04:50 05:00 05:10 Temperature Pulse Rate 70 68 Pulse Rate [ From Monitor] Respiratory 15 13 13 Rate Blood Pressure 114/55 150/80 150/80 O2 Sat by Pulse 99 99 Oximetry 01/24/20 01/24/20 01/24/20 05:20 05:30 05:40 Temperature Pulse Rate 70 66 65 Pulse Rate [ From Monitor] Respiratory 21 18 17 Rate Blood Pressure 150/80 150/80 150/80 O2 Sat by Pulse 100 100 100 Oximetry 01/24/20 01/24/20 01/24/20 05:50 06:00 06:10 Temperature Pulse Rate 65 64 66 Pulse Rate [ From Monitor] Respiratory 16 19 18 Rate Blood Pressure 150/80 117/70 117/70 O2 Sat by Pulse 100 97 99 Oximetry 01/24/20 01/24/20 01/24/20 06:20 06:30 06:40 Temperature Pulse Rate 64 64 65 Pulse Rate [ From Monitor] Respiratory 17 16 19 Rate Blood Pressure 117/70 150/80 150/80 O2 Sat by Pulse 99 99 99 Oximetry 01/24/20 01/24/20 01/24/20 06:50 07:00 07:10 Temperature Pulse Rate 64 61 63 Pulse Rate [ From Monitor] Respiratory 18 18 16 Rate Blood Pressure 150/80 111/69 111/69 O2 Sat by Pulse 100 98 100 Oximetry 01/24/20 01/24/20 01/24/20 07:20 07:30 07:41 Temperature Pulse Rate 60 64 81 Pulse Rate [ From Monitor] Respiratory 15 17 20 Rate Blood Pressure 111/69 111/69 111/69 O2 Sat by Pulse 100 100 99 Oximetry 01/24/20 01/24/20 01/24/20 07:51 08:00 08:11 Temperature Pulse Rate 61 63 74 Pulse Rate [ From Monitor] Respiratory 18 17 15 Rate Blood Pressure 111/69 112/60 112/60 O2 Sat by Pulse 99 99 Oximetry 01/24/20 01/24/20 01/24/20 08:21 08:31 08:41 Temperature Pulse Rate 71 73 67 Pulse Rate [ From Monitor] Respiratory 10 L 21 14 Rate Blood Pressure 112/60 112/60 112/60 O2 Sat by Pulse 96 Oximetry 01/24/20 01/24/20 01/24/20 08:51 09:00 09:10 Temperature Pulse Rate 66 81 109 H Pulse Rate [ From Monitor] Respiratory 14 16 15 Rate Blood Pressure 112/60 112/60 112/60 O2 Sat by Pulse 98 Oximetry 01/24/20 01/24/20 01/24/20 09:20 09:30 09:40 Temperature Pulse Rate 63 71 64 Pulse Rate [ From Monitor] Respiratory 14 19 12 Rate Blood Pressure 112/60 131/68 131/68 O2 Sat by Pulse 98 98 97 Oximetry - Abdomen soft, tender, bowel sounds normal, not distended (+BS; +mild TTP RLQ; no peritoneal signs) - Labs 01/24/20 02:50 01/24/20 02:50 Diabetes panel 01/24/20 Range/Units 02:50 Sodium 146 H (137-145) mmol/L Potassium 3.8 (3.6-5.0) mmol/L Chloride 111.0 H (98-107) mmol/L Carbon Dioxide 24 (22-30) mmol/L BUN 8 (7-17) mg/dL Creatinine 0.5 L (0.6-1.2) mg/dL Glucose 90 (65-100) mg/dL Calcium 8.0 L (8.4-10.2) mg/dL Calcium panel 01/24/20 Range/Units 02:50 Calcium 8.0 L (8.4-10.2) mg/dL Pituitary panel 01/24/20 Range/Units 02:50 Sodium 146 H (137-145) mmol/L Potassium 3.8 (3.6-5.0) mmol/L Chloride 111.0 H (98-107) mmol/L Carbon Dioxide 24 (22-30) mmol/L BUN 8 (7-17) mg/dL Creatinine 0.5 L (0.6-1.2) mg/dL Glucose 90 (65-100) mg/dL Calcium 8.0 L (8.4-10.2) mg/dL Adrenal panel 01/24/20 Range/Units 02:50 Sodium 146 H (137-145) mmol/L Potassium 3.8 (3.6-5.0) mmol/L Chloride 111.0 H (98-107) mmol/L Carbon Dioxide 24 (22-30) mmol/L BUN 8 (7-17) mg/dL Creatinine 0.5 L (0.6-1.2) mg/dL Glucose 90 (65-100) mg/dL Calcium 8.0 L (8.4-10.2) mg/dL
--- NOTE | 2020-01-24 10:43 | Progress Note ---
Assessment and Plan Assessment and plan: Mid SMA thrombus/bowel mesenteric ischemia IR and GI following. CTA revealed focal occlusion of the distal SMA with prominent mural thickening and inflammatory changes of the small bowel in the central abdomen compatible with ischemic enteritis. Patient awaits ultrasound of the gallbladder. Abdominal pain. Etiology secondary to above Hypertension Permissive hypertension per IR recommendation Renal infarct Nephrology following. CT scan of the abdomen and pelvis however reveals right renal infarction. Leukocytosis Possibly reactive however patient is being covered with empiric IV antibiotics. DVT prophylaxis Patient placed on subcutaneous Lovenox. Full code status 01/23/2020. CT scan of the chest revealed ulcerated plaque with associated thrombus that showered the abdominal aorta. Continue IV heparin drip and aspirin. Continue antibiotics of Levaquin and Zosyn. IR, nephrology and general surgery following. 01/24/2020. Continue IV antibiotics and advance diet to regular per surgery recommendations. Lactic acid level within normal limits. Continue heparin drip. Follow-up echocardiogram. Consult hematology for hypercoagulable work- up. History Interval history: No new issues overnight. Hospitalist Physical - Constitutional Vitals: Temp Pulse Resp BP Pulse Ox 98.0 F 64 12 131/68 97 01/24/20 04:00 01/24/20 09:40 01/24/20 09:40 01/24/20 09:40 01/24/20 09:40 General appearance: Present: mild distress (Very mild right lower quadrant pain which occurs intermittently ; mostly has back pain which is chronic and she has had for years with numerous failed back procedures; no chest pain) - EENT Eyes: Present: PERRL, EOM intact ENT: hearing intact, clear oral mucosa, dentition normal - Neck Neck: Present: supple, normal ROM - Respiratory Respiratory effort: normal Respiratory: bilateral: CTA - Cardiovascular Rhythm: regular Heart Sounds: Present: S1 & S2. Absent: gallop, rub - Extremities Extremities: no ischemia, No edema, Full ROM - Abdominal General gastrointestinal: soft, non-tender, non-distended, normal bowel sounds - Integumentary Integumentary: Present: clear, warm, dry - Neurologic Neurologic: CNII-XII intact, moves all extremities Results - Labs CBC & Chem 7: 01/24/20 02:50 01/24/20 02:50 Labs: Laboratory Last Values WBC 11.1 K/mm3 (4.5-11.0) H 01/24/20 02:50 RBC 3.60 M/mm3 (3.65-5.03) L 01/24/20 02:50 Hgb 12.3 gm/dl (10.1-14.3) 01/24/20 02:50 Hct 36.4 % (30.3-42.9) 01/24/20 02:50 MCV 101 fl (79-97) H 01/24/20 02:50 MCH 34 pg (28-32) H 01/24/20 02:50 MCHC 34 % (30-34) 01/24/20 02:50 RDW 13.5 % (13.2-15.2) 01/24/20 02:50 Plt Count 127 K/mm3 (140-440) L 01/24/20 02:50 Lymph % (Auto) 19.8 % (13.4-35.0) 01/24/20 02:50 Ness % (Auto) 10.1 % (0.0-7.3) H 01/24/20 02:50 Eos % (Auto) 1.5 % (0.0-4.3) 01/24/20 02:50 Baso % (Auto) 0.4 % (0.0-1.8) 01/24/20 02:50 Lymph # (Auto) 2.2 K/mm3 (1.2-5.4) 01/24/20 02:50 Ness # (Auto) 1.1 K/mm3 (0.0-0.8) H 01/24/20 02:50 Eos # (Auto) 0.2 K/mm3 (0.0-0.4) 01/24/20 02:50 Baso # (Auto) 0.0 K/mm3 (0.0-0.1) 01/24/20 02:50 Seg Neutrophils % 68.2 % (40.0-70.0) 01/24/20 02:50 Seg Neutrophils # 7.6 K/mm3 (1.8-7.7) 01/24/20 02:50 PT 13.8 Sec. (12.2-14.9) 01/23/20 02:21 INR 1.08 (0.87-1.13) 01/23/20 02:21 APTT 90.0 Sec. (24.2-36.6) H* 01/22/20 21:17 Heparin Anti-Xa Level < 0.10 U.I./ml (0.3-0.7) L 01/24/20 10:07 Sodium 146 mmol/L (137-145) H 01/24/20 02:50 Potassium 3.8 mmol/L (3.6-5.0) 01/24/20 02:50 Chloride 111.0 mmol/L (98-107) H 01/24/20 02:50 Carbon Dioxide 24 mmol/L (22-30) 01/24/20 02:50 Anion Gap 15 mmol/L 01/24/20 02:50 BUN 8 mg/dL (7-17) 01/24/20 02:50 Creatinine 0.5 mg/dL (0.6-1.2) L 01/24/20 02:50 Estimated GFR > 60 ml/min 01/24/20 02:50 BUN/Creatinine Ratio 16 % 01/24/20 02:50 Glucose 90 mg/dL (65-100) 01/24/20 02:50 Lactic Acid 0.70 mmol/L (0.7-2.0) 01/23/20 02:21 Calcium 8.0 mg/dL (8.4-10.2) L 01/24/20 02:50 Magnesium 2.00 mg/dL (1.7-2.3) 01/22/20 01:38 Total Bilirubin 0.50 mg/dL (0.1-1.2) 01/22/20 01:38 AST 32 units/L (5-40) 01/22/20 01:38 ALT 40 units/L (7-56) 01/22/20 01:38 Alkaline Phosphatase 157 units/L (35-129) H 01/22/20 01:38 Total Creatine Kinase 70 units/L (30-135) 01/22/20 01:38 Total Protein 6.5 g/dL (6.3-8.2) 01/22/20 01:38 Albumin 3.9 g/dL (3.9-5) 01/22/20 01:38 Albumin/Globulin Ratio 1.5 % 01/22/20 01:38 Lipase 16 units/L (13-60) 01/22/20 01:38 Urine Color Yellow (Yellow) 01/22/20 04:37 Urine Turbidity Clear (Clear) 01/22/20 04:37 Urine pH 5.0 (5.0-7.0) 01/22/20 04:37 Ur Specific [place] 1.008 (1.003-1.030) 01/22/20 04:37 Urine Protein 30 mg/dl mg/dL (Negative) 01/22/20 04:37 Urine Glucose (UA) Neg mg/dL (Negative) 01/22/20 04:37 Urine Ketones Neg mg/dL (Negative) 01/22/20 04:37 Urine Blood Neg (Negative) 01/22/20 04:37 Urine Nitrite Neg (Negative) 01/22/20 04:37 Urine Bilirubin Neg (Negative) 01/22/20 04:37 Urine Urobilinogen < 2.0 mg/dL (<2.0) 01/22/20 04:37 Ur Leukocyte Esterase Neg (Negative) 01/22/20 04:37 Urine WBC (Auto) 2.0 /HPF (0.0-6.0) 01/22/20 04:37 Urine RBC (Auto) 5.0 /HPF (0.0-6.0) 01/22/20 04:37 U Epithel Cells (Auto) 3.0 /HPF (0-13.0) 01/22/20 04:37 Urine Bacteria (Auto) 1+ /HPF (Negative) 01/22/20 04:37 Urine Mucus 1+ /HPF 01/22/20 04:37 Microbiology: Microbiology 01/22/20 04:43 Peripheral/Venous Blood Culture - Preliminary NO GROWTH AFTER 48 HOURS 01/22/20 04:35 Peripheral/Venous Blood Culture - Preliminary NO GROWTH AFTER 48 HOURS [place]/IV: Voiding Method Bedpan IV Catheter Type [Right Peripheral IV Antecubital] Active Medications - Current Medications Current Medications: Generic Name Dose Route Start Last Admin Trade Name Freq PRN Reason Stop Dose Admin Acetaminophen 650 mg 01/22/20 05:47 Tylenol PO Q4H PRN Pain MILD(1-3)/Fever >100.5/RUCKER Hydrocodone Bitart/Acetaminophen 1 each 01/23/20 12:34 01/24/20 00:20 [place] 10/325 PO 1 each Q6H PRN Administration Pain, Moderate (4-6) Aspirin 81 mg 01/23/20 10:00 01/24/20 09:25 Halfprin Ec PO 81 mg QDAY ANDRA Administration Hydromorphone HCl 0.5 mg 01/22/20 05:47 01/24/20 09:23 Dilaudid IV 0.5 mg Q3H PRN Administration Pain , Severe (7-10) Sodium Chloride 1,000 mls @ 125 mls/hr 01/22/20 06:00 01/23/20 14:12 Nacl 0.9% 1000 Ml IV 125 mls/hr DIRECT ANDRA Administration Heparin Sodium/Sodium Chloride 25,000 unit in 500 mls @ 29 mls/hr 01/22/20 18:00 01/24/20 03:46 Heparin/ 0.45% Nacl-25,000 Unit/500 Ml IV 1,100 units/hr TITR ANDRA 22 mls/hr Titration Protocol 1,450 UNITS/HR Piperacillin Sod/Tazobactam Sod 4.5 gm in 100 mls @ 200 mls/hr 01/22/20 18:00 01/24/20 02:11 Zosyn/Ns 4.5gm/100ml IV 200 mls/hr Q8H ANDRA Administration Protocol Magnesium Hydroxide 30 ml 01/22/20 05:47 Milk Of Magnesia PO Q4H PRN Constipation Ondansetron HCl 4 mg 01/22/20 05:47 01/23/20 08:12 Zofran IV 4 mg Q8H PRN Administration Nausea And Vomiting Pantoprazole Sodium 40 mg 01/23/20 16:00 01/23/20 21:25 Protonix IV 40 mg BID ANDRA Administration Sodium Chloride 10 ml 01/22/20 10:00 01/24/20 09:26 Sodium Chloride Flush Syringe 10 Ml IV 10 ml BID ANDRA Administration Sodium Chloride 10 ml 01/22/20 05:47 Sodium Chloride Flush Syringe 10 Ml IV PRN PRN LINE FLUSH
[2020-01-24] MEDS ORDERED: HEPARIN 10,000 UNITS/10 ML VIAL IV SCH (12:22)
--- NOTE | 2020-01-24 13:21 | Progress Note ---
Assessment and Plan Patient alert, awake and oriented. Presently resting on room air. O2 saturation 95%. No complaint of chest pain, shortness of breath or cough. Patient has heavy history of smokig. Smokes little less than 1 pack for 30 years. Patient has hi story of COPD. Counseled her to stop smoking. Denies alcohol or drug abuse. 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 No known drug allergies. Patient afebrile and has mild leukocytosis. B/P 127/73, Pulse 94. Patients CT of chest done 01/22/20 reported Tiny focal intimal defect of the medial aspect of the proximal descending thoracic aorta, suspicious for tiny dissection. No other acute findings in the chest. CT scan of abdomen and Pelvis done on 01/22/20 reported Focal occlusion of the distal SMA with prominent mural thickening and inflammatory changes of the small bowel in the central abdomen, compatible with ischemic enteritis. No bowel pneumatosis at this time. Interval development of multiple splenic infarcts. Similar area of infarction within the right mid kidney. Patient presently on I/V Heparin, Methyl prednisone, zosyn, Protonix. Recommend albuterol inhaler 2 puffs po qid Prn for shortness of breath. I spent critical care time of 50 minutes on this patient review the chart, obtaining history, examining the patient, review, lab results, review CAT scan of chest, talking to the nursing and respiratory therapy and work out plan of tr eatment in this critically ill patient. - Patient Problems (1) COPD (chronic obstructive pulmonary disease) Current Visit: Yes Status: Chronic Qualifiers: Emphysema type: unspecified Plan to address problem: Couseled to stop smoking. PFTs as out patient. Albuterol inhaler 2 puffs po qid prn for shortness of breath. (2) Hypertension Current Visit: Yes Status: Chronic Qualifiers: Hypertension type: essential hypertension Qualified Code(s): I10 - Essential (primary) hypertension Plan to address problem: Management as per primary care. (3) Renal infarct Current Visit: Yes Status: Acute Plan to address problem: Management as per vascular surgery and nephrology. (4) Abdominal pain Current Visit: Yes Status: Acute Qualifiers: Abdominal location: right upper quadrant Qualified Code(s): R10.11 - Right upper quadrant pain Plan to address problem: Management as per primary care and vascular. (5) Flank pain Current Visit: Yes Status: Acute Plan to address problem: Management as per vascular and primary care. Subjective Date of service: 01/24/20 Principal diagnosis: abd pain Interval history: Patient alert, awake and oriented. Presently resting on room air. O2 saturation 95%. No complaint of chest pain, shortness of breath or cough. Patient has heavy history of smokig. Smokes little less than 1 pack for 30 years. Patient has history of COPD. Counseled her to stop smoking. Denies alcohol or drug abuse. 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 No known drug allergies. Patient afebrile and has mild leukocytosis. B/P 127/73, Pulse 94. Patients CT of chest done 01/22/20 reported Tiny focal intimal defect of the medial aspect of the proximal descending thoracic aorta, suspicious for tiny dissection. No other acute findings in the chest. CT scan of abdomen and Pelvis done on 01/22/20 reported Focal occlusion of the distal SMA with prominent mural thickening and inflammatory changes of the small bowel in the central abdomen, compatible with ischemic enteritis. No bowel pneumatosis at this time. Interval development of multiple splenic infarcts. Similar area of infarction within the right mid kidney. Patient presently on I/V Heparin, Methyl prednisone, zosyn, Protonix. Recommend albuterol inhaler 2 puffs po qid Prn for shortness of breath. Objective Vital Signs - 12hr 01/24/20 01/24/20 01/24/20 01:20 01:30 01:41 Temperature Pulse Rate 68 64 63 Pulse Rate [ From Monitor] Respiratory 15 18 18 Rate Blood Pressure 117/55 117/55 O2 Sat by Pulse 90 90 99 Oximetry 01/24/20 01/24/20 01/24/20 01:51 02:00 02:11 Temperature Pulse Rate 67 67 67 Pulse Rate [ From Monitor] Respiratory 17 15 17 Rate Blood Pressure 117/55 115/53 115/53 O2 Sat by Pulse 99 99 98 Oximetry 01/24/20 01/24/20 01/24/20 02:21 02:30 02:40 Temperature Pulse Rate 67 68 Pulse Rate [ From Monitor] Respiratory 20 19 12 Rate Blood Pressure 115/53 115/53 115/53 O2 Sat by Pulse 98 98 99 Oximetry 01/24/20 01/24/20 01/24/20 02:50 03:00 03:10 Temperature Pulse Rate 77 68 65 Pulse Rate [ From Monitor] Respiratory 14 21 18 Rate Blood Pressure 115/53 135/68 135/68 O2 Sat by Pulse 98 99 100 Oximetry 01/24/20 01/24/20 01/24/20 03:20 03:30 03:40 Temperature Pulse Rate 66 65 65 Pulse Rate [ From Monitor] Respiratory 18 17 16 Rate Blood Pressure 135/68 135/68 135/68 O2 Sat by Pulse 99 100 100 Oximetry 01/24/20 01/24/20 01/24/20 03:50 04:00 04:10 Temperature 98.0 F Pulse Rate 63 66 72 Pulse Rate [ 66 From Monitor] Respiratory 17 18 16 Rate Blood Pressure 135/68 114/55 114/55 O2 Sat by Pulse 99 99 99 Oximetry 01/24/20 01/24/20 01/24/20 04:20 04:30 04:40 Temperature Pulse Rate 64 64 64 Pulse Rate [ From Monitor] Respiratory 21 17 19 Rate Blood Pressure 114/55 114/55 114/55 O2 Sat by Pulse 100 100 99 Oximetry 01/24/20 01/24/20 01/24/20 04:50 05:00 05:10 Temperature Pulse Rate 70 68 Pulse Rate [ From Monitor] Respiratory 15 13 13 Rate Blood Pressure 114/55 150/80 150/80 O2 Sat by Pulse 99 99 Oximetry 01/24/20 01/24/20 01/24/20 05:20 05:30 05:40 Temperature Pulse Rate 70 66 65 Pulse Rate [ From Monitor] Respiratory 21 18 17 Rate Blood Pressure 150/80 150/80 150/80 O2 Sat by Pulse 100 100 100 Oximetry 01/24/20 01/24/20 01/24/20 05:50 06:00 06:10 Temperature Pulse Rate 65 64 66 Pulse Rate [ From Monitor] Respiratory 16 19 18 Rate Blood Pressure 150/80 117/70 117/70 O2 Sat by Pulse 100 97 99 Oximetry 01/24/20 01/24/20 01/24/20 06:20 06:30 06:40 Temperature Pulse Rate 64 64 65 Pulse Rate [ From Monitor] Respiratory 17 16 19 Rate Blood Pressure 117/70 150/80 150/80 O2 Sat by Pulse 99 99 99 Oximetry 01/24/20 01/24/20 01/24/20 06:50 07:00 07:10 Temperature Pulse Rate 64 61 63 Pulse Rate [ From Monitor] Respiratory 18 18 16 Rate Blood Pressure 150/80 111/69 111/69 O2 Sat by Pulse 100 98 100 Oximetry 01/24/20 01/24/20 01/24/20 07:20 07:30 07:41 Temperature Pulse Rate 60 64 81 Pulse Rate [ From Monitor] Respiratory 15 17 20 Rate Blood Pressure 111/69 111/69 111/69 O2 Sat by Pulse 100 100 99 Oximetry 01/24/20 01/24/20 01/24/20 07:51 08:00 08:11 Temperature Pulse Rate 61 63 74 Pulse Rate [ From Monitor] Respiratory 18 17 15 Rate Blood Pressure 111/69 112/60 112/60 O2 Sat by Pulse 99 99 Oximetry 01/24/20 01/24/20 01/24/20 08:21 08:31 08:41 Temperature Pulse Rate 71 73 67 Pulse Rate [ From Monitor] Respiratory 10 L 21 14 Rate Blood Pressure 112/60 112/60 112/60 O2 Sat by Pulse 96 Oximetry 01/24/20 01/24/20 01/24/20 08:51 09:00 09:10 Temperature Pulse Rate 66 81 109 H Pulse Rate [ From Monitor] Respiratory 14 16 15 Rate Blood Pressure 112/60 112/60 112/60 O2 Sat by Pulse 98 Oximetry 01/24/20 01/24/20 01/24/20 09:20 09:30 09:40 Temperature Pulse Rate 63 71 64 Pulse Rate [ From Monitor] Respiratory 14 19 12 Rate Blood Pressure 112/60 131/68 131/68 O2 Sat by Pulse 98 98 97 Oximetry Constitutional: no acute distress, alert Eyes: non-icteric ENT: oropharynx dry Neck: supple, no lymphadenopathy, no JVD Effort: normal Ascultation: Bilateral: diminished breath sounds Cardiovascular: regular rate and rhythm, other (s1,s2) Gastrointestinal: normoactive bowel sounds, soft, tender (Mild epigastric, no rebound), non-distended Integumentary: normal Extremities: no cyanosis, no edema Neurologic: normal mental status, non-focal exam, motor strength normal and Psychiatric: mood appropriate, affect normal CBC and BMP: 01/24/20 02:50 01/24/20 02:50 ABG, PT/INR, D-dimer: PT/INR, D-dimer PT 13.8 Sec. (12.2-14.9) 01/23/20 02:21 INR 1.08 (0.87-1.13) 01/23/20 02:21 Abnormal lab findings: Abnormal Labs 01/22/20 01/22/20 01/22/20 01:38 01:38 21:17 WBC 14.7 H RBC Hgb 15.0 H MCV 100 H MCH 35 H MCHC 35 H Plt Count [place] % (Auto) 8.2 H [place] # (Auto) 1.2 H Seg Neutrophils % 71.2 H Seg Neutrophils # 10.5 H INR 1.18 H APTT 90.0 H* Heparin Anti-Xa Level Sodium Chloride Creatinine Glucose 142 H Calcium Alkaline Phosphatase 157 H 01/22/20 01/22/20 01/23/20 21:17 21:17 02:21 WBC 13.6 H 12.3 H RBC Hgb MCV 101 H 101 H MCH 34 H 34 H MCHC Plt Count 133 L 131 L [place] % (Auto) 9.7 H 10.3 H [place] # (Auto) 1.3 H 1.3 H Seg Neutrophils % 75.5 H Seg Neutrophils # 10.3 H 8.6 H INR APTT Heparin Anti-Xa Level Sodium Chloride 108.3 H Creatinine 0.4 L Glucose 110 H Calcium 8.0 L Alkaline Phosphatase 01/23/20 01/24/20 01/24/20 02:21 02:50 02:50 WBC 11.1 H RBC 3.60 L Hgb MCV 101 H MCH 34 H MCHC Plt Count 127 L [place] % (Auto) 10.1 H [place] # (Auto) 1.1 H Seg Neutrophils % Seg Neutrophils # INR APTT Heparin Anti-Xa Level 0.14 L Sodium Chloride Creatinine 0.5 L Glucose 107 H Calcium 8.0 L Alkaline Phosphatase 01/24/20 01/24/20 02:50 10:07 WBC RBC Hgb MCV MCH MCHC Plt Count [place] % (Auto) [place] # (Auto) Seg Neutrophils % Seg Neutrophils # INR APTT Heparin Anti-Xa Level < 0.10 L Sodium 146 H Chloride 111.0 H Creatinine 0.5 L Glucose Calcium 8.[address] scan - chest: report reviewed, image reviewed Additional Studies: CTA CHEST WITH CONTRAST : 01/22/20 INDICATION / CLINICAL INFORMATION: acute onset abd pain, renal infarct, ischemia. TECHNIQUE: Axial CT images were obtained through the chest after injection of IV contrast. 3 plane MIP and/or 3D reconstructions were produced. All CT scans at this location are performed using CT dose reduction for ALARA by means of automated exposure control. COMPARISON: None available. FINDINGS: PULMONARY ARTERIES: No central or segmental pulmonary embolus. THORACIC AORTA: The thoracic aorta is normal in caliber with mild atherosclerotic calcifications. There is a tiny focal intimal defect along the medial aspect of the proximal descending thoracic aorta (series 2 image 43). Remainder of the aorta is unremarkable. HEART: No significant abnormality. ADENOPATHY: No significant adenopathy. LUNGS/PLEURA: No focal airspace consolidation. No pleural effusion. No pneumothorax. ADDITIONAL FINDINGS: None. UPPER ABDOMEN: No acute findings. SKELETAL STRUCTURES: No significant osseous abnormality. IMPRESSION: 1. Tiny focal intimal defect of the medial aspect of the proximal descending thoracic aorta, suspicious for tiny dissection. 2. No other acute findings in the chest.
--- NOTE | 2020-01-24 13:39 | Hem/Onc Consultation ---
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 had thrombectomy by invasive vascular procedure now receiving IV heparin doing better but not well yet-->still R abd pain and L back pain FHx father 50'sw of stroke sister has had clotting, 70yo Soc: smoker, denies alcohol ROS: h/o heavy menstrual bleeding no recent diarrhea Exam: NAD, hoarse voice, legs 2+ edema DATA REVIEWED BELOW IMP: presumed clotting tendency, now with mesenteric and splanchnic thrombosis pain could be mostly due to splenic and renal infarction opiate requirement for pain high MCV, cause unknown PLAN: anticoag with lovenox-->plan home lovenox 2 weeks-->then xarelto 20mg daily steroid pulse labs to include clot mutation testing, cardiolipin ab, AMRIT, Maida, LDH Vital Signs Temp Pulse Resp BP Pulse Ox 98.0 F 64 12 131/68 97 01/24/20 04:00 01/24/20 09:40 01/24/20 09:40 01/24/20 09:40 01/24/20 09:40 Temperature -Last 24 Hours Temperature 98.0 F Temperature 98.0 F Temperature 98.1 F Temperature 98.2 F Temperature 97.9 F Active Medications Acetaminophen (Tylenol) 650 mg PO Q4H PRN PRN Reason: Pain MILD(1-3)/Fever >100.5/RUCKER Hydrocodone Bitart/Acetaminophen ([place] 10/325) 1 each PO Q6H PRN PRN Reason: Pain, Moderate (4-6) Last Admin: 01/24/20 00:20 Dose: 1 each Documented by: Aspirin (Halfprin Ec) 81 mg PO QDAY ANDRA Last Admin: 01/24/20 09:25 Dose: 81 mg Documented by: Enoxaparin Sodium (Enoxaparin) 100 mg SUB-Q Q12HR ANDRA; Protocol Heparin Sodium (Porcine) (Heparin 10,000 Units/10 Ml) 3,800 unit IV ONCE ANDRA Stop: 01/24/20 14:22 Last Admin: 01/24/20 12:34 Dose: 3,800 unit Documented by: Hydromorphone HCl (Dilaudid) 0.5 mg IV Q3H PRN PRN Reason: Pain , Severe (7-10) Last Admin: 01/24/20 09:23 Dose: 0.5 mg Documented by: Sodium Chloride (Nacl 0.9% 1000 Ml) 1,000 mls @ 125 mls/hr IV DIRECT ANDRA Last Admin: 01/23/20 14:12 Dose: 125 mls/hr Documented by: Heparin Sodium/Sodium Chloride (Heparin/ 0.45% Nacl-25,000 Unit/500 Ml) 25,000 unit in 500 mls @ 29 mls/hr IV TITR ANDRA; Protocol Last Titration: 01/24/20 12:36 Dose: 1,350 units/hr, 27 mls/hr Documented by: Piperacillin Sod/Tazobactam Sod (Zosyn/Ns 4.5gm/100ml) 4.5 gm in 100 mls @ 200 mls/hr IV Q8H ANDRA; Protocol Last Admin: 01/24/20 02:11 Dose: 200 mls/hr Documented by: Magnesium Hydroxide (Milk Of Magnesia) 30 ml PO Q4H PRN PRN Reason: Constipation Ondansetron HCl (Zofran) 4 mg IV Q8H PRN PRN Reason: Nausea And Vomiting Last Admin: 01/23/20 08:12 Dose: 4 mg Documented by: Pantoprazole Sodium (Protonix) 40 mg PO BIDAC ANDRA Sodium Chloride (Sodium Chloride Flush Syringe 10 Ml) 10 ml IV BID ANDRA Last Admin: 01/24/20 09:26 Dose: 10 ml Documented by: Sodium Chloride (Sodium Chloride Flush Syringe 10 Ml) 10 ml IV PRN PRN PRN Reason: LINE FLUSH Laboratory Last Values WBC 11.1 K/mm3 (4.5-11.0) H 01/24/20 02:50 Hgb 12.3 gm/dl (10.1-14.3) 01/24/20 02:50 Hct 36.4 % (30.3-42.9) 01/24/20 02:50 MCV 101 fl (79-97) H 01/24/20 02:50 Plt Count 127 K/mm3 (140-440) L 01/24/20 02:50 Seg Neutrophils % 68.2 % (40.0-70.0) 01/24/20 02:50 PT 13.8 Sec. (12.2-14.9) 01/23/20 02:21 INR 1.08 (0.87-1.13) 01/23/20 02:21 APTT 90.0 Sec. (24.2-36.6) H* 01/22/20 21:17 \ Creatinine 0.5 mg/dL (0.6-1.2) L 01/24/20 02:50 Lactic Acid 0.70 mmol/L (0.7-2.0) 01/23/20 02:21 Albumin 3.9 g/dL (3.9-5) 01/22/20 01:38 Urine Mucus 1+ /HPF 01/22/20 04:37 Past History Past Medical History: arthritis, COPD, hypertension, hyperlipidemia, other (Fibromyalgia) Past Surgical History: hysterectomy (Laparoscopic hysterectomy) Social history: smoking (Current daily smoker) Family history: no significant family history Medications and Allergies Allergies Allergy/AdvReac Type Severity Reaction Status Date / Time No Known Allergies Allergy Unverified 07/15/15 22:25 Home Medications Medication Instructions Recorded Confirmed Last Taken Type HYDROcodone/APAP 10-325 [[place] 1 each PO Q6HR PRN #20 tablet 07/16/15 01/23/20 Unknown Rx 10-325 mg TAB] AtorvaSTATin [Lipitor] 40 mg PO QHS 01/23/20 01/23/20 Unknown History Carvedilol Phosphate [Carvedilol 40 mg PO BID 01/23/20 01/23/20 Unknown History ER] DULoxetine [Cymbalta] 30 mg PO BID 01/23/20 01/23/20 Unknown History Active Meds: Active Medications Acetaminophen (Tylenol) 650 mg PO Q4H PRN PRN Reason: Pain MILD(1-3)/Fever >100.5/RUCKER Hydrocodone Bitart/Acetaminophen ([place] 10/325) 1 each PO Q6H PRN PRN Reason: Pain, Moderate (4-6) Last Admin: 01/24/20 00:20 Dose: 1 each Documented by: Aspirin (Halfprin Ec) 81 mg PO QDAY ANDRA Last Admin: 01/24/20 09:25 Dose: 81 mg Documented by: Enoxaparin Sodium (Enoxaparin) 100 mg SUB-Q Q12HR ANDRA; Protocol Heparin Sodium (Porcine) (Heparin 10,000 Units/10 Ml) 3,800 unit IV ONCE ANDRA Stop: 01/24/20 14:22 Last Admin: 01/24/20 12:34 Dose: 3,800 unit Documented by: Hydromorphone HCl (Dilaudid) 0.5 mg IV Q3H PRN PRN Reason: Pain , Severe (7-10) Last Admin: 01/24/20 09:23 Dose: 0.5 mg Documented by: Sodium Chloride (Nacl 0.9% 1000 Ml) 1,000 mls @ 125 mls/hr IV DIRECT ANDRA Last Admin: 01/23/20 14:12 Dose: 125 mls/hr Documented by: Heparin Sodium/Sodium Chloride (Heparin/ 0.45% Nacl-25,000 Unit/500 Ml) 25,000 unit in 500 mls @ 29 mls/hr IV TITR ANDRA; Protocol Last Titration: 01/24/20 12:36 Dose: 1,350 units/hr, 27 mls/hr Documented by: Piperacillin Sod/Tazobactam Sod (Zosyn/Ns 4.5gm/100ml) 4.5 gm in 100 mls @ 200 mls/hr IV Q8H ANDRA; Protocol Last Admin: 01/24/20 02:11 Dose: 200 mls/hr Documented by: Magnesium Hydroxide (Milk Of Magnesia) 30 ml PO Q4H PRN PRN Reason: Constipation Methylprednisolone Sodium Succinate (Solu-Medrol) 80 mg IV Q12H ANDRA Ondansetron HCl (Zofran) 4 mg IV Q8H PRN PRN Reason: Nausea And Vomiting Last Admin: 01/23/20 08:12 Dose: 4 mg Documented by: Pantoprazole Sodium (Protonix) 40 mg PO BIDAC ANRDA Sodium Chloride (Sodium Chloride Flush Syringe 10 Ml) 10 ml IV BID ANDRA Last Admin: 01/24/20 09:26 Dose: 10 ml Documented by: Sodium Chloride (Sodium Chloride Flush Syringe 10 Ml) 10 ml IV PRN PRN PRN Reason: LINE FLUSH Exam - Constitutional Vitals: Last Vital Signs Temp 98.0 F 01/24/20 04:00 Pulse 64 01/24/20 09:40 Resp 12 01/24/20 09:40 BP 131/68 01/24/20 09:40 Pulse Ox 97 01/24/20 09:40 Results - Labs lab Results: Laboratory Results - last 24 hr 01/24/20 01/24/20 01/24/20 02:50 02:50 02:50 WBC 11.1 H RBC 3.60 L Hgb 12.3 Hct 36.4 MCV 101 H MCH 34 H MCHC 34 RDW 13.5 Plt Count 127 L Lymph % (Auto) 19.8 [place] % (Auto) 10.1 H Eos % (Auto) 1.5 Baso % (Auto) 0.4 Lymph # (Auto) 2.2 [place] # (Auto) 1.1 H Eos # (Auto) 0.2 Baso # (Auto) 0.0 Seg Neutrophils % 68.2 Seg Neutrophils # 7.6 Heparin Anti-Xa Level 0.14 L Sodium 146 H Potassium 3.8 Chloride 111.0 H Carbon Dioxide 24 Anion Gap 15 BUN 8 Creatinine 0.5 L Estimated GFR > 60 BUN/Creatinine Ratio 16 Glucose 90 Calcium 8.0 L 01/24/20 10:07 WBC RBC Hgb Hct MCV MCH MCHC RDW Plt Count Lymph % (Auto) [place] % (Auto) Eos % (Auto) Baso % (Auto) Lymph # (Auto) [place] # (Auto) Eos # (Auto) Baso # (Auto) Seg Neutrophils % Seg Neutrophils # Heparin Anti-Xa Level < 0.10 L Sodium Potassium Chloride Carbon Dioxide Anion Gap BUN Creatinine Estimated GFR BUN/Creatinine Ratio Glucose Calcium
[2020-01-24] MEDS: PANTOPRAZOLE 40 MG INJ IV SCH (16:39)
--- NOTE | 2020-01-24 16:50 | Progress Note ---
Assessment and Plan 59-year-old female with past medical history of smoking who presents with severe right lower quadrant pain out of proportion with CT scan originally demonstrating right renal infarct and enteritis of the small bowel. Status post mesenteric artery thrombectomy from a percutaneous approach to the left radial artery which was successful with thrombectomy of most of the thrombus. Thrombectomy had to be performed of the middle colic, right colic, SMA, and distal SMA vessel. Heparin drip and baby aspirin currently. Abdominal pain has greatly improved even today with improvement of white blood cell count. Patient was able to eat without issue. Doing very well clinically. Epigastric pain improved with Protonix administration. Will change to p.o. Thoracic aorta demonstrates ulcerated plaque, likely etiology for showering event. No significant type B dissection noted. Do not recommend aggressive hypertensive management at this time as the risks of hypertensive management outweigh the benefits. No lower extremity or upper extremity ischemia noted. No stroke based on patient's exam. Patient has tachycardia to the 150s with a irregular rhythm appearing to be atrial flutter. I contacted Dr. Jones to let him know. Discussed with nurse. Ordered twelve-lead EKG. They will follow up with Dr. Jones and cardiology a s needed. Subjective Date of service: 01/24/20 Principal diagnosis: abd pain Interval history: Abdominal pain significantly improved since yesterday. She ate without discomfort. Epigastric discomfort has greatly improved as well with initiation of Protonix. Has lots of back pain. Upper and lower extremities are warm and well perfused. No abdominal pain on palpation. Evaluated telemetry which demonstrated patient had an irregular rhythm with heart rate of 150 and although she was asymptomatic, this appeared to be atrial flutter. Objective - Constitutional Vitals: Vital Signs - 12hr 01/24/20 01/24/20 01/24/20 04:50 05:00 05:10 Temperature Pulse Rate 70 68 Pulse Rate [ From Monitor] Respiratory 15 13 13 Rate Blood Pressure 114/55 150/80 150/80 O2 Sat by Pulse 99 99 Oximetry 01/24/20 01/24/20 01/24/20 05:20 05:30 05:40 Temperature Pulse Rate 70 66 65 Pulse Rate [ From Monitor] Respiratory 21 18 17 Rate Blood Pressure 150/80 150/80 150/80 O2 Sat by Pulse 100 100 100 Oximetry 11/30/20 11/30/20 11/30/20 05:50 06:00 06:10 Temperature Pulse Rate 65 64 66 Pulse Rate [ From Monitor] Respiratory 16 19 18 Rate Blood Pressure 150/80 117/70 117/70 O2 Sat by Pulse 100 97 99 Oximetry 01/24/20 01/24/20 01/24/20 06:20 06:30 06:40 Temperature Pulse Rate 64 64 65 Pulse Rate [ From Monitor] Respiratory 17 16 19 Rate Blood Pressure 117/70 150/80 150/80 O2 Sat by Pulse 99 99 99 Oximetry 01/24/20 01/24/20 01/24/20 06:50 07:00 07:10 Temperature Pulse Rate 64 61 63 Pulse Rate [ From Monitor] Respiratory 18 18 16 Rate Blood Pressure 150/80 111/69 111/69 O2 Sat by Pulse 100 98 100 Oximetry 01/24/20 01/24/20 01/24/20 07:20 07:30 07:41 Temperature Pulse Rate 60 64 81 Pulse Rate [ From Monitor] Respiratory 15 17 20 Rate Blood Pressure 111/69 111/69 111/69 O2 Sat by Pulse 100 100 99 Oximetry 01/24/20 01/24/20 01/24/20 07:51 08:00 08:11 Temperature 97.5 F L Pulse Rate 61 63 74 Pulse Rate [ 66 From Monitor] Respiratory 18 18 15 Rate Blood Pressure 111/69 112/60 112/60 O2 Sat by Pulse 99 99 Oximetry 01/24/20 01/24/20 01/24/20 08:21 08:31 08:41 Temperature Pulse Rate 71 73 67 Pulse Rate [ From Monitor] Respiratory 10 L 21 14 Rate Blood Pressure 112/60 112/60 112/60 O2 Sat by Pulse 96 Oximetry 01/24/20 01/24/20 01/24/20 08:51 09:00 09:10 Temperature Pulse Rate 66 81 109 H Pulse Rate [ From Monitor] Respiratory 14 16 15 Rate Blood Pressure 112/60 112/60 112/60 O2 Sat by Pulse 98 Oximetry 01/24/20 01/24/20 01/24/20 09:20 09:30 09:40 Temperature Pulse Rate 63 71 64 Pulse Rate [ From Monitor] Respiratory 14 19 12 Rate Blood Pressure 112/60 131/68 131/68 O2 Sat by Pulse 98 98 97 Oximetry 01/24/20 01/24/20 01/24/20 09:50 10:00 10:10 Temperature Pulse Rate 58 L 61 59 L Pulse Rate [ From Monitor] Respiratory 15 15 33 H Rate Blood Pressure 131/68 130/73 130/73 O2 Sat by Pulse 97 96 99 Oximetry 01/24/20 01/24/20 01/24/20 10:20 10:30 10:40 Temperature Pulse Rate 60 58 L 63 Pulse Rate [ From Monitor] Respiratory 21 16 22 Rate Blood Pressure 130/73 130/73 130/73 O2 Sat by Pulse 97 98 98 Oximetry 01/24/20 01/24/20 01/24/20 10:50 11:00 11:10 Temperature Pulse Rate 59 L 59 L 60 Pulse Rate [ From Monitor] Respiratory 20 15 21 Rate Blood Pressure 130/73 133/78 130/73 O2 Sat by Pulse 96 97 96 Oximetry 01/24/20 01/24/20 01/24/20 11:20 11:30 11:40 Temperature Pulse Rate 62 61 62 Pulse Rate [ From Monitor] Respiratory 18 21 20 Rate Blood Pressure 130/73 130/73 130/73 O2 Sat by Pulse 97 98 99 Oximetry 01/24/20 01/24/20 01/24/20 11:50 12:00 12:10 Temperature Pulse Rate 66 67 91 H Pulse Rate [ 66 From Monitor] Respiratory 19 22 25 H Rate Blood Pressure 130/73 160/135 160/135 O2 Sat by Pulse 100 96 Oximetry 01/24/20 01/24/20 01/24/20 12:20 12:30 12:40 Temperature Pulse Rate 72 74 75 Pulse Rate [ From Monitor] Respiratory 14 13 16 Rate Blood Pressure 160/135 160/135 160/135 O2 Sat by Pulse Oximetry 01/24/20 01/24/20 01/24/20 12:50 13:00 13:10 Temperature Pulse Rate 71 76 65 Pulse Rate [ From Monitor] Respiratory 37 H 17 19 Rate Blood Pressure 160/135 160/135 122/82 O2 Sat by Pulse 99 Oximetry 01/24/20 01/24/20 01/24/20 13:20 13:30 13:40 Temperature Pulse Rate 66 67 65 Pulse Rate [ From Monitor] Respiratory 27 H 22 18 Rate Blood Pressure 122/82 122/82 122/82 O2 Sat by Pulse 97 96 97 Oximetry 01/24/20 01/24/20 01/24/20 13:50 14:00 14:10 Temperature Pulse Rate 77 74 69 Pulse Rate [ From Monitor] Respiratory 21 25 H 26 H Rate Blood Pressure 122/82 138/75 138/75 O2 Sat by Pulse 98 97 98 Oximetry 01/24/20 01/24/20 01/24/20 14:20 14:30 14:40 Temperature Pulse Rate 74 79 70 Pulse Rate [ From Monitor] Respiratory 18 23 27 H Rate Blood Pressure 138/75 138/75 138/75 O2 Sat by Pulse 97 96 98 Oximetry 01/24/20 01/24/20 01/24/20 14:50 15:00 15:10 Temperature Pulse Rate 67 67 68 Pulse Rate [ From Monitor] Respiratory 19 30 H 29 H Rate Blood Pressure 138/75 135/67 135/67 O2 Sat by Pulse 96 97 96 Oximetry 01/24/20 01/24/20 01/24/20 15:20 15:58 16:00 Temperature Pulse Rate 141 H 151 H 155 H Pulse Rate [ 66 From Monitor] Respiratory 32 H 29 H 29 H Rate Blood Pressure 135/67 135/67 135/67 O2 Sat by Pulse 89 Oximetry 01/24/20 01/24/20 01/24/20 16:10 16:20 16:30 Temperature Pulse Rate 131 H 137 H 144 H Pulse Rate [ From Monitor] Respiratory 36 H Rate Blood Pressure 180/154 130/73 135/67 O2 Sat by Pulse 95 93 94 Oximetry General appearance: Present: no acute distress - EENT Eyes: EOM intact ENT: hearing intact - Respiratory Respiratory effort: normal - Cardiovascular Rhythm: other (Tachycardic) Extremities: normal temperature, normal color - Gastrointestinal General gastrointestinal: Present: soft, non-tender - Psychiatric Psychiatric: appropriate mood/affect, cooperative - Labs CBC & Chem 7: 01/24/20 02:50 01/24/20 02:50 Labs: Abnormal lab results 01/24/20 01/24/20 01/24/20 Range/Units 02:50 02:50 02:50 WBC 11.1 H (4.5-11.0) K/mm3 RBC 3.60 L (3.65-5.03) M/mm3 MCV 101 H (79-97) fl MCH 34 H (28-32) pg Plt Count 127 L (140-440) K/mm3 [place] % (Auto) 10.1 H (0.0-7.3) % [place] # (Auto) 1.1 H (0.0-0.8) K/mm3 Heparin Anti-Xa Level 0.14 L (0.3-0.7) U.I./ml Sodium 146 H (137-145) mmol/L Chloride 111.0 H (98-107) mmol/L Creatinine 0.5 L (0.6-1.2) mg/dL Calcium 8.0 L (8.4-10.2) mg/dL 01/24/20 Range/Units 10:07 WBC (4.5-11.0) K/mm3 RBC (3.65-5.03) M/mm3 MCV (79-97) fl MCH (28-32) pg Plt Count (140-440) K/mm3 [place] % (Auto) (0.0-7.3) % [place] # (Auto) (0.0-0.8) K/mm3 Heparin Anti-Xa Level < 0.10 L (0.3-0.7) U.I./ml Sodium (137-145) mmol/L Chloride (98-107) mmol/L Creatinine (0.6-1.2) mg/dL Calcium (8.4-10.2) mg/dL Medications & Allergies - Medications Allergies/Adverse Reactions: Allergies No Known Allergies Allergy (Unverified 07/15/15 22:25) Home Medications: Home Medications Medication Instructions Recorded Confirmed Last Taken Type HYDROcodone/APAP 10-325 [[place] 1 each PO Q6HR PRN #20 tablet 07/16/15 01/23/20 Unknown Rx 10-325 mg TAB] AtorvaSTATin [Lipitor] 40 mg PO QHS 01/23/20 01/23/20 Unknown History Carvedilol Phosphate [Carvedilol 40 mg PO BID 01/23/20 01/23/20 Unknown History ER] DULoxetine [Cymbalta] 30 mg PO BID 01/23/20 01/23/20 Unknown History Active Medications: Generic Name Dose Route Start Last Admin Trade Name Freq PRN Reason Stop Dose Admin Acetaminophen 650 mg 01/22/20 05:47 Tylenol PO Q4H PRN Pain MILD(1-3)/Fever >100.5/RUCKER Hydrocodone Bitart/Acetaminophen 1 each 01/23/20 12:34 01/24/20 15:48 [place] 10/325 PO 1 each Q6H PRN Administration Pain, Moderate (4-6) Aspirin 81 mg 01/23/20 10:00 01/24/20 09:25 Halfprin Ec PO 81 mg QDAY ANDRA Administration Enoxaparin Sodium 100 mg 01/24/20 19:00 Enoxaparin SUB-Q Q12HR [facility] Protocol Hydromorphone HCl 0.5 mg 01/22/20 05:47 01/24/20 09:23 Dilaudid IV 0.5 mg Q3H PRN Administration Pain , Severe (7-10) Sodium Chloride 1,000 mls @ 125 mls/hr 01/22/20 06:00 01/23/20 14:12 Nacl 0.9% 1000 Ml IV 125 mls/hr DIRECT ANDRA Administration Heparin Sodium/Sodium Chloride 25,000 unit in 500 mls @ 29 mls/hr 01/22/20 18:00 01/24/20 12:36 Heparin/ 0.45% Nacl-25,000 Unit/500 Ml IV 01/24/20 21:00 1,350 units/hr TITR ANDRA 27 mls/hr Titration Protocol 1,450 UNITS/HR Piperacillin Sod/Tazobactam Sod 4.5 gm in 100 mls @ 200 mls/hr 01/22/20 18:00 01/24/20 02:11 Zosyn/Ns 4.5gm/100ml IV 200 mls/hr Q8H ANDRA Administration Protocol Magnesium Hydroxide 30 ml 01/22/20 05:47 Milk Of Magnesia PO Q4H PRN Constipation Methylprednisolone Sodium Succinate 80 mg 01/24/20 16:00 Solu-Medrol IV Q12H [facility] Ondansetron HCl 4 mg 01/22/20 05:47 01/23/20 08:12 Zofran IV 4 mg Q8H PRN Administration Nausea And Vomiting Pantoprazole Sodium 40 mg 01/24/20 13:00 Protonix PO BIDAC ANDRA Sodium Chloride 10 ml 01/22/20 10:00 01/24/20 09:26 Sodium Chloride Flush Syringe 10 Ml IV 10 ml BID ANDRA Administration Sodium Chloride 10 ml 01/22/20 05:47 Sodium Chloride Flush Syringe 10 Ml IV PRN PRN LINE FLUSH
--- NOTE | 2020-01-24 17:14 | Consultation ---
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 History of hypertension hyperlipidemia is on IV heparin also has renal infarct. Patient found to have an elevated heart rate EKG shows atrial fibrillation with RVR. Rasheed bauer denies any palpitations chest pain or shortness of breath. Her abdominal pain was better after intervention. Patient denies any history of fever chills or syncope. Is a heavy smoker. Past History Past Medical History: arthritis, COPD, hypertension, hyperlipidemia, other (Fibromyalgia) Past Surgical History: hysterectomy (Laparoscopic hysterectomy) Social history: smoking (Current daily smoker) Family history: no significant family history Medications and Allergies Allergies Allergy/AdvReac Type Severity Reaction Status Date / Time No Known Allergies Allergy Unverified 07/15/15 22:25 Home Medications Medication Instructions Recorded Confirmed Last Taken Type HYDROcodone/APAP 10-325 [[place] 1 each PO Q6HR PRN #20 tablet 07/16/15 01/23/20 Unknown Rx 10-325 mg TAB] AtorvaSTATin [Lipitor] 40 mg PO QHS 01/23/20 01/23/20 Unknown History Carvedilol Phosphate [Carvedilol 40 mg PO BID 01/23/20 01/23/20 Unknown History ER] DULoxetine [Cymbalta] 30 mg PO BID 01/23/20 01/23/20 Unknown History Active Meds: Active Medications Acetaminophen (Tylenol) 650 mg PO Q4H PRN PRN Reason: Pain MILD(1-3)/Fever >100.5/[place] Hydrocodone Bitart/Acetaminophen ([place] 10/325) 1 each PO Q6H PRN PRN Reason: Pain, Moderate (4-6) Last Admin: 01/24/20 15:48 Dose: 1 each Documented by: Aspirin (Halfprin Ec) 81 mg PO QDAY ANDRA Last Admin: 01/24/20 09:25 Dose: 81 mg Documented by: Hydromorphone HCl (Dilaudid) 0.5 mg IV Q3H PRN PRN Reason: Pain , Severe (7-10) Last Admin: 01/24/20 09:23 Dose: 0.5 mg Documented by: Sodium Chloride (Nacl 0.9% 1000 Ml) 1,000 mls @ 125 mls/hr IV DIRECT ANDRA Last Admin: 01/23/20 14:12 Dose: 125 mls/hr Documented by: Heparin Sodium/Sodium Chloride (Heparin/ 0.45% Nacl-25,000 Unit/500 Ml) 25,000 unit in 500 mls @ 29 mls/hr IV TITR ANDRA; Protocol Stop: 01/24/20 21:00 Last Titration: 01/24/20 12:36 Dose: 1,350 units/hr, 27 mls/hr Documented by: Piperacillin Sod/Tazobactam Sod (Zosyn/Ns 4.5gm/100ml) 4.5 gm in 100 mls @ 200 mls/hr IV Q8H ANDRA; Protocol Last Admin: 01/24/20 02:11 Dose: 200 mls/hr Documented by: Amiodarone HCl 150 mg/ (Dextrose) 103 mls @ 600 mls/hr IV ONCE ONE Stop: 01/24/20 17:18 Amiodarone HCl 900 mg/ (Dextrose) 500 mls @ 33.333 mls/hr IV DIRECT ANDRA; Protocol Magnesium Hydroxide (Milk Of Magnesia) 30 ml PO Q4H PRN PRN Reason: Constipation Methylprednisolone Sodium Succinate (Solu-Medrol) 80 mg IV Q12H ANDRA Ondansetron HCl (Zofran) 4 mg IV Q8H PRN PRN Reason: Nausea And Vomiting Last Admin: 01/23/20 08:12 Dose: 4 mg Documented by: Pantoprazole Sodium (Protonix) 40 mg PO BIDAC ANDRA Sodium Chloride (Sodium Chloride Flush Syringe 10 Ml) 10 ml IV BID ANDRA Last Admin: 01/24/20 09:26 Dose: 10 ml Documented by: Sodium Chloride (Sodium Chloride Flush Syringe 10 Ml) 10 ml IV PRN PRN PRN Reason: LINE FLUSH Physical Examination Vital Signs Temp Pulse Resp BP Pulse Ox 98.1 F 70 18 172/65 96 01/22/20 01:03 01/22/20 01:03 01/22/20 01:03 01/22/20 01:03 01/22/20 01:03 General appearance: no acute distress HEENT: Positive: PERRL Neck: Positive: neck supple Cardiac: Positive: Irregularly Regular Lungs: Positive: clear to auscultation Neuro: Positive: Grossly Intact Abdomen: Positive: Soft Extremities: Present: normal Results 01/24/20 02:50 01/24/20 02:50 CBC 01/24/20 Range/Units 02:50 WBC 11.1 H (4.5-11.0) K/mm3 RBC 3.60 L (3.65-5.03) M/mm3 Hgb 12.3 (10.1-14.3) gm/dl Hct 36.4 (30.3-42.9) % Plt Count 127 L (140-440) K/mm3 Lymph # (Auto) 2.2 (1.2-5.4) K/mm3 [place] # (Auto) 1.1 H (0.0-0.8) K/mm3 Eos # (Auto) 0.2 (0.0-0.4) K/mm3 Baso # (Auto) 0.0 (0.0-0.1) K/mm3 Comprehensive Metabolic Panel 01/24/20 Range/Units 02:50 Sodium 146 H (137-145) mmol/L Potassium 3.8 (3.6-5.0) mmol/L Chloride 111.0 H (98-107) mmol/L Carbon Dioxide 24 (22-30) mmol/L BUN 8 (7-17) mg/dL Creatinine 0.5 L (0.6-1.2) mg/dL Glucose 90 (65-100) mg/dL Calcium 8.0 L (8.4-10.2) mg/dL - Imaging and Cardiology Echo: report reviewed (Normal LV function mild mitral regurgitation) EKG interpretations - Telemetry EKG Rhythm: Atrial Fibrillation (Atrial fibrillation with RVR) Assessment and Plan Patient has a history of low blood pressure so start patient on IV amiodarone continue IV heparin. Patient be transition to oral anticoagulation once stable - Patient Problems (1) Atrial fibrillation with RVR Current Visit: Yes Status: Acute (2) Abdominal pain Current Visit: Yes Status: Acute Qualifiers: Abdominal location: right upper quadrant Qualified Code(s): R10.11 - Right upper quadrant pain (3) COPD (chronic obstructive pulmonary disease) Current Visit: Yes Status: Chronic Qualifiers: Emphysema type: unspecified (4) Hypertension Current Visit: Yes Status: Chronic Qualifiers: Hypertension type: essential hypertension Qualified Code(s): I10 - Es sential (primary) hypertension (5) Renal infarct Current Visit: Yes Status: Acute
[2020-01-24] MEDS: methylPREDNISolone Sod Succinate 125 MG/2 ML INJ IV SCH (17:24)
[2020-01-24] MEDS: PANTOPRAZOLE 40 MG TAB PO SCH ×2 (17:25→21:38)
[2020-01-24] MEDS ORDERED: AMIODARONE 900 MG in DEXTROSE 5% IN WATER 482 ML IV SCH (18:00)
[2020-01-24] MEDS ORDERED: AMIODARONE 150 MG in DEXTROSE 5% IN WATER 100 ML IV ONE (18:08)
[2020-01-24] MEDS ORDERED: ENOXAPARIN 100 MG/1 ML INJ SUB-Q SCH (19:00)
[2020-01-24] MEDS: dilTIAZem 30 MG TAB PO SCH (19:41)
[2020-01-24] MEDS: SODIUM CHLORIDE 0.9% 1000 ML 1,000 ML IV SCH (19:43)
[2020-01-25] MEDS: dilTIAZem 30 MG TAB PO SCH ×2 (00:30→06:12)
[2020-01-25] MEDS: HYDROmorphone 1 MG/1 ML INJ IV PRN ×3 (02:26→18:34)
[2020-01-25] MEDS: PIPERACIL/TAZOBACTA 4.5/NS 100 4.5 GM/100 ML VIAL IV SCH ×3 (02:26→17:28)
[2020-01-25] MEDS: methylPREDNISolone Sod Succinate 125 MG/2 ML INJ IV SCH ×2 (03:46→16:18)
[2020-01-25] MEDS: SODIUM CHLORIDE 0.9% 1000 ML 1,000 ML IV SCH (06:11)
[2020-01-25] MEDS: HYDROcodone/ACETAMINOPHEN 10-325MG TAB PO PRN ×3 (06:17→21:53)
[2020-01-25] MEDS: PANTOPRAZOLE 40 MG TAB PO SCH ×2 (08:00→16:17)
--- NOTE | 2020-01-25 08:48 | Hem/Onc Progress Note ---
Subjective Interval history: Heme data review 59yo prev healthy woman with presumed emphysema, now adm for add pain found to have impressive clotting in spleen, R kidney, SMA thrombosis with concern for intestinal ischemia had thrombectomy by invasive vascular procedure recently found to have atrial flutter now receiving IV heparin s/p steroid pulse DATA REVIEWED BELOW no labs today IMP: presumed clotting tendency, now with mesenteric and splanchnic thrombosis pain could be mostly due to splenic and renal infarction opiate requirement for pain high MCV, cause unknown PLAN: consider home "full dose" lovenox for 2 weeks because of clot burden -->then xarelto 20mg daily cont steroid pulse because of pain related to spleen inflammation labs to include clot mutation testing, cardiolipin ab opiate meds needed for pain-->may need oral opiate meds for discharge Vital Signs Temp Pulse Resp BP Pulse Ox 98.0 F 73 12 118/68 95 01/25/20 08:00 01/25/20 08:01 01/25/20 08:01 01/25/20 08:01 01/25/20 08:01 Temperature -Last 24 Hours Temperature 98.0 F Temperature 97.9 F Temperature 98.1 F Temperature 98.6 F Temperature 97.5 F Temperature 98.7 F Active Medications Aspirin (Halfprin Ec) 81 mg PO QDAY [facility] Last Admin: 01/24/20 09:25 Dose: 81 mg Documented by: Diltiazem HCl (Cardizem) 30 mg PO Q6HR [facility] Last Admin: 01/25/20 06:12 Dose: 30 mg Documented by: Hydromorphone HCl (Dilaudid) 1 mg IV Q2H PRN PRN Reason: Pain , Severe (7-10) Piperacillin Sod/Tazobactam Sod (Zosyn/Ns 4.5gm/100ml) 4.5 gm in 100 mls @ 200 mls/hr IV Q8H [facility]; Protocol Last Admin: 01/25/20 02:26 Dose: 200 mls/hr Documented by: Methylprednisolone Sodium Succinate (Solu-Medrol) 80 mg IV Q12H [facility] Last Admin: 01/25/20 03:46 Dose: 80 mg Documented by: Laboratory Last Values WBC 11.1 K/mm3 (4.5-11.0) H 01/24/20 02:50 Hgb 12.3 gm/dl (10.1-14.3) 01/24/20 02:50 Hct 36.4 % (30.3-42.9) 01/24/20 02:50 Plt Count 127 K/mm3 (140-440) L 01/24/20 02:50 INR 1.08 (0.87-1.13) 01/23/20 02:21 Creatinine 0.5 mg/dL (0.6-1.2) L 01/24/20 02:50 Urine Mucus 1+ /HPF 01/22/20 04:37 Objective - Constitutional Vitals: Last Vital Signs Temp 98.0 F 01/25/20 08:00 Pulse 73 01/25/20 08:01 Resp 12 01/25/20 08:01 BP 118/68 01/25/20 08:01 Pulse Ox 95 01/25/20 08:01 - Labs Lab Results: Laboratory Results - last 24 hr 01/24/20 01/24/20 01/24/20 10:07 19:19 19:19 Heparin Anti-Xa Level < 0.10 L 0.24 L TSH 2.190 Medications & Allergies - Medications Allergies/Adverse Reactions: Allergies No Known Allergies Allergy (Unverified 07/15/15 22:25) Home Medications: Home Medications Medication Instructions Recorded Confirmed Last Taken Type HYDROcodone/APAP 10-325 [[place] 1 each PO Q6HR PRN #20 tablet 07/16/15 01/23/20 Unknown Rx 10-325 mg TAB] AtorvaSTATin [Lipitor] 40 mg PO QHS 01/23/20 01/23/20 Unknown History Carvedilol Phosphate [Carvedilol 40 mg PO BID 01/23/20 01/23/20 Unknown History ER] DULoxetine [Cymbalta] 30 mg PO BID 01/23/20 01/23/20 Unknown History Active Medications: Generic Name Dose Route Start Last Admin Trade Name Freq PRN Reason Stop Dose Admin Acetaminophen 650 mg 01/22/20 05:47 Tylenol PO Q4H PRN Pain MILD(1-3)/Fever >100.5/[place] Hydrocodone Bitart/Acetaminophen 1 each 01/23/20 12:34 01/25/20 06:17 [place] 10/325 PO 1 each Q6H PRN Administration Pain, Moderate (4-6) Aspirin 81 mg 01/23/20 10:00 01/24/20 09:25 Halfprin Ec PO 81 mg QDAY ANDRA Administration Diltiazem HCl 30 mg 01/24/20 19:00 01/25/20 06:12 Cardizem PO 30 mg Q6HR ANDRA Administration Hydromorphone HCl 1 mg 01/25/20 01:33 Dilaudid IV Q2H PRN Pain , Severe (7-10) Sodium Chloride 1,000 mls @ 125 mls/hr 01/22/20 06:00 01/25/20 06:11 Nacl 0.9% 1000 Ml IV 125 mls/hr DIRECT ANDRA Administration Piperacillin Sod/Tazobactam Sod 4.5 gm in 100 mls @ 200 mls/hr 01/22/20 18:00 01/25/20 02:26 Zosyn/Ns 4.5gm/100ml IV 200 mls/hr Q8H ANDRA Administration Protocol Magnesium Hydroxide 30 ml 01/22/20 05:47 Milk Of Magnesia PO Q4H PRN Constipation Methylprednisolone Sodium Succinate 80 mg 01/24/20 16:00 01/25/20 03:46 Solu-Medrol IV 80 mg Q12H ANDRA Administration Ondansetron HCl 4 mg 01/22/20 05:47 01/23/20 08:12 Zofran IV 4 mg Q8H PRN Administration Nausea And Vomiting Pantoprazole Sodium 40 mg 01/24/20 13:00 01/25/20 08:00 Protonix PO 40 mg BIDAC ANDRA Administration Sodium Chloride 10 ml 01/22/20 10:00 01/24/20 21:39 Sodium Chloride Flush Syringe 10 Ml IV 10 ml BID ANDRA Administration Sodium Chloride 10 ml 01/22/20 05:47 Sodium Chloride Flush Syringe 10 Ml IV PRN PRN LINE FLUSH
--- NOTE | 2020-01-25 09:36 | Progress Note ---
Assessment and Plan Patient alert, awake and oriented. Presently resting on room air. O2 saturation 94%. No complaint of chest pain, shortness of breath or cough. Patient has heavy history of smokig. Smokes little less than 1 pack for 30 years. Patient has hi story of COPD. Counseled her to stop smoking. Denies alcohol or drug abuse. 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 No known drug allergies. Patient afebrile and has mild leukocytosis. B/P 159/79, Pulse 73. Patients CT of chest done 01/22/20 reported Tiny focal intimal defect of the medial aspect of the proximal descending thoracic aorta, suspicious for tiny dissection. No other acute findings in the chest. CT scan of abdomen and Pelvis done on 01/22/20 reported Focal occlusion of the distal SMA with prominent mural thickening and inflammatory changes of the small bowel in the central abdomen, compatible with ischemic enteritis. No bowel pneumatosis at this time. Interval development of multiple splenic infarcts. Similar area of infarction within the right mid kidney. Patient presently on S/C Lovenox , Methyl prednisone, zosyn, Protonix. Recomme nd albuterol inhaler 2 puffs po qid Prn for shortness of breath. Patient was seen in IMCU I spent critical care time of 35 minutes on this patient review the chart, obtaining history, examining the patient, review, lab results, review CAT scan of chest, talking to the nursing and respiratory therapy and work out plan of treatment in this critically ill patient. - Patient Problems (1) COPD (chronic obstructive pulmonary disease) Current Visit: Yes Status: Chronic Qualifiers: Emphysema type: unspecified Plan to address problem: Couseled to stop smoking. PFTs as out patient. Albuterol inhaler 2 puffs po qid prn for shortness of breath. (2) Hypertension Current Visit: Yes Status: Chronic Qualifiers: Hypertension type: essential hypertension Qualified Code(s): I10 - Essential (primary) hypertension Plan to address problem: Management as per primary care. (3) Renal infarct Current Visit: Yes Status: Acute Plan to address problem: Management as per vascular surgery and nephrology. (4) Abdominal pain Current Visit: Yes Status: Acute Qualifiers: Abdominal location: right upper quadrant Qualified Code(s): R10.11 - Right upper quadrant pain Plan to address problem: Management as per primary care and vascular. (5) Flank pain Current Visit: Yes Status: Acute Plan to address problem: Management as per vascular and primary care. Subjective Date of service: 01/25/20 Principal diagnosis: abd pain Interval history: Patient alert, awake and oriented. Presently resting on room air. O2 saturation 94%. No complaint of chest pain, shortness of breath or cough. Patient has heavy history of smokig. Smokes little less than 1 pack for 30 years. Patient has history of COPD. Counseled her to stop smoking. Denies alcohol or drug abuse. 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 No known drug allergies. Patient afebrile and has mild leukocytosis. B/P 159/79, Pulse 73. Patients CT of chest done 01/22/20 reported Tiny focal intimal defect of the medial aspect of the proximal descending thoracic aorta, suspicious for tiny dissection. No other acute findings in the chest. CT scan of abdomen and Pelvis done on 01/22/20 reported Focal occlusion of the distal SMA with prominent mural thickening and inflammatory changes of the small bowel in the central abdomen, compatible with ischemic enteritis. No bowel pneumatosis at this time. Interval development of multiple splenic infarcts. Similar area of infarction within the right mid kidney. Patient presently on S/C Lovenox , Methyl prednisone, zosyn, Protonix. Recommend albuterol inhaler 2 puffs po qid Prn for shortness of breath. Objective Vital Signs - 12hr 01/24/20 01/24/20 01/24/20 21:47 22:00 22:17 Temperature Pulse Rate 73 Pulse Rate [ From Monitor] Respiratory 20 20 Rate Respiratory Rate [Left Hand ] Blood Pressure 139/77 O2 Sat by Pulse 95 Oximetry 01/24/20 01/25/20 01/25/20 23:00 00:00 00:04 Temperature 98.1 F Pulse Rate 63 64 Pulse Rate [ From Monitor] Respiratory Rate Respiratory Rate [Left Hand ] Blood Pressure 104/49 112/57 O2 Sat by Pulse 93 93 Oximetry 01/25/20 01/25/20 01/25/20 00:16 00:30 01:00 Temperature Pulse Rate 63 65 59 L Pulse Rate [ From Monitor] Respiratory Rate Respiratory Rate [Left Hand ] Blood Pressure 112/57 99/48 O2 Sat by Pulse 94 Oximetry 01/25/20 01/25/20 01/25/20 02:00 02:25 02:26 Temperature Pulse Rate 57 L Pulse Rate [ From Monitor] Respiratory 20 Rate Respiratory 20 Rate [Left Hand ] Blood Pressure 112/56 O2 Sat by Pulse 94 Oximetry 01/25/20 01/25/20 01/25/20 02:56 03:00 03:30 Temperature Pulse Rate 56 L 58 L Pulse Rate [ From Monitor] Respiratory 20 Rate Respiratory Rate [Left Hand ] Blood Pressure 104/46 O2 Sat by Pulse 93 Oximetry 01/25/20 01/25/20 01/25/20 04:00 05:01 06:00 Temperature 97.9 F Pulse Rate 58 L 57 L 51 L Pulse Rate [ 58 L From Monitor] Respiratory Rate Respiratory Rate [Left Hand ] Blood Pressure 105/49 131/74 127/73 O2 Sat by Pulse 94 94 93 Oximetry 01/25/20 01/25/20 01/25/20 06:12 06:17 07:00 Temperature Pulse Rate 63 52 L Pulse Rate [ From Monitor] Respiratory 20 17 Rate Respiratory Rate [Left Hand ] Blood Pressure 127/73 118/68 O2 Sat by Pulse 94 Oximetry 01/25/20 01/25/20 01/25/20 07:17 08:00 08:01 Temperature 98.0 F Pulse Rate 73 Pulse Rate [ 74 From Monitor] Respiratory 20 12 Rate Respiratory Rate [Left Hand ] Blood Pressure 118/68 O2 Sat by Pulse 94 95 Oximetry Constitutional: no acute distress, alert Eyes: non-icteric ENT: oropharynx dry Neck: supple, no lymphadenopathy, no JVD Effort: normal Ascultation: Bilateral: diminished breath sounds Cardiovascular: regular rate and rhythm, other (s1,s2) Gastrointestinal: normoactive bowel sounds, soft, tender (Mild epigastric, no rebound), non-distended Integumentary: normal Extremities: no cyanosis, no edema Neurologic: normal mental status, non-focal exam, motor strength normal and Psychiatric: mood appropriate, affect normal CBC and BMP: 01/24/20 02:50 01/24/20 02:50 ABG, PT/INR, D-dimer: PT/INR, D-dimer PT 13.8 Sec. (12.2-14.9) 01/23/20 02:21 INR 1.08 (0.87-1.13) 01/23/20 02:21 Abnormal lab findings: Abnormal Labs 01/22/20 01/22/20 01/22/20 01:38 01:38 21:17 WBC 14.7 H RBC Hgb 15.0 H MCV 100 H MCH 35 H MCHC 35 H Plt Count [place] % (Auto) 8.2 H [place] # (Auto) 1.2 H Seg Neutrophils % 71.2 H Seg Neutrophils # 10.5 H INR 1.18 H APTT 90.0 H* Heparin Anti-Xa Level Sodium Chloride Creatinine Glucose 142 H Calcium Alkaline Phosphatase 157 H 01/22/20 01/22/20 01/23/20 21:17 21:17 02:21 WBC 13.6 H 12.3 H RBC Hgb MCV 101 H 101 H MCH 34 H 34 H MCHC Plt Count 133 L 131 L [place] % (Auto) 9.7 H 10.3 H [place] # (Auto) 1.3 H 1.3 H Seg Neutrophils % 75.5 H Seg Neutrophils # 10.3 H 8.6 H INR APTT Heparin Anti-Xa Level Sodium Chloride 108.3 H Creatinine 0.4 L Glucose 110 H Calcium 8.0 L Alkaline Phosphatase 01/23/20 01/24/20 01/24/20 02:21 02:50 02:50 WBC 11.1 H RBC 3.60 L Hgb MCV 101 H MCH 34 H MCHC Plt Count 127 L [place] % (Auto) 10.1 H [place] # (Auto) 1.1 H Seg Neutrophils % Seg Neutrophils # INR APTT Heparin Anti-Xa Level 0.14 L Sodium Chloride Creatinine 0.5 L Glucose 107 H Calcium 8.0 L Alkaline Phosphatase 01/24/20 01/24/20 01/24/20 02:50 10:07 19:19 WBC RBC Hgb MCV MCH MCHC Plt Count [place] % (Auto) [place] # (Auto) Seg Neutrophils % Seg Neutrophils # INR APTT Heparin Anti-Xa Level < 0.10 L 0.24 L Sodium 146 H Chloride 111.0 H Creatinine 0.5 L Glucose Calcium 8.0 L Alkaline Phosphatase
[2020-01-25] MEDS: ASPIRIN EC 81 MG TAB PO SCH (10:15)
--- NOTE | 2020-01-25 10:20 | Progress Note ---
Assessment and Plan Assessment and plan: Mid SMA thrombus/bowel mesenteric ischemia IR and GI following. CTA revealed focal occlusion of the distal SMA with prominent mural thickening and inflammatory changes of the small bowel in the central abdomen compatible with ischemic enteritis. Continue anticoagulation-switch heparin to Eliquis Abdominal pain. Etiology secondary to above Hypertension Permissive hypertension per IR recommendation Renal infarct Nephrology following. CT scan of the abdomen and pelvis however reveals right renal infarction. Leukocytosis Possibly reactive however patient is being covered with empiric IV antibiotics. New onset atrial fibrillation Continue p.o. Cardizem Eliquis 5 mg twice daily Cardiology follow-up at discharge DVT prophylaxis Patient placed on subcutaneous Lovenox. Full code status 01/23/2020. CT scan of the chest revealed ulcerated plaque with associated thrombus that showered the abdominal aorta. Continue IV heparin drip and aspirin. Continue antibiotics of Levaquin and Zosyn. IR, nephrology and general surgery following. 01/24/2020. Continue IV antibiotics and advance diet to regular per surgery recommendations. Lactic acid level within normal limits. Continue heparin drip. Follow-up echocardiogram. Consult hematology for hypercoagulable work- up. Patient noted to have rapid atrial fibrillation. Cardiology was consulted and plan to start IV amiodarone but patient subsequently converted to sinus rhythm. Patient on p.o. Cardizem 01/24. No complaints today. Remains in sinus rhythm. On p.o. Cardizem. Started on Eliquis 5 mg twice daily. Cardiology recommendations appreciated. Okay to transfer to the telemetry floor History Interval history: Patient seen and examined at bedside this morning Normal sinus rhythm. On Cardizem p.o. Hospitalist Physical - Physical exam Narrative exam: VITAL SIGNS: Reviewed. GENERAL: Awake and alert on response to questions HEAD: No signs of head trauma. EYES: Pupils are equal. Extraocular motions intact. EARS: Hearing grossly intact. MOUTH: Oropharynx is normal. NECK: No adenopathy, no JVD. CHEST: Chest with diminished breath sounds bilaterally. No wheezes, rales, or rhonchi. CARDIAC: Regular rate and rhythm. S1 and S2, without murmurs, gallops, or rubs. VASCULAR: No Edema. Peripheral pulses normal and equal in all extremities. ABDOMEN: Soft, non tender and non distended. No rebound or guarding, and no masses palpated. Bowel Sounds normal. MUSCULOSKELETAL: Good range of motion of all major joints. Extremities without clubbing, cyanosis or edema. NEUROLOGIC EXAM: Alert and oriented x3. No focal neurologic deficits PSYCHIATRIC: Stable mood SKIN: No obvious lesions - Constitutional Vitals: Temp Pulse Resp BP Pulse Ox 98.0 F 73 12 118/68 95 01/25/20 08:00 01/25/20 08:01 01/25/20 08:01 01/25/20 08:01 01/25/20 08:01 Results - Labs CBC & Chem 7: 01/24/20 02:50 01/24/20 02:50 Labs: Laboratory Last Values WBC 11.1 K/mm3 (4.5-11.0) H 01/24/20 02:50 RBC 3.60 M/mm3 (3.65-5.03) L 01/24/20 02:50 Hgb 12.3 gm/dl (10.1-14.3) 01/24/20 02:50 Hct 36.4 % (30.3-42.9) 01/24/20 02:50 MCV 101 fl (79-97) H 01/24/20 02:50 MCH 34 pg (28-32) H 01/24/20 02:50 MCHC 34 % (30-34) 01/24/20 02:50 RDW 13.5 % (13.2-15.2) 01/24/20 02:50 Plt Count 127 K/mm3 (140-440) L 01/24/20 02:50 Lymph % (Auto) 19.8 % (13.4-35.0) 01/24/20 02:50 [place] % (Auto) 10.1 % (0.0-7.3) H 01/24/20 02:50 Eos % (Auto) 1.5 % (0.0-4.3) 01/24/20 02:50 Baso % (Auto) 0.4 % (0.0-1.8) 01/24/20 02:50 Lymph # (Auto) 2.2 K/mm3 (1.2-5.4) 01/24/20 02:50 [place] # (Auto) 1.1 K/mm3 (0.0-0.8) H 01/24/20 02:50 Eos # (Auto) 0.2 K/mm3 (0.0-0.4) 01/24/20 02:50 Baso # (Auto) 0.0 K/mm3 (0.0-0.1) 01/24/20 02:50 Seg Neutrophils % 68.2 % (40.0-70.0) 01/24/20 02:50 Seg Neutrophils # 7.6 K/mm3 (1.8-7.7) 01/24/20 02:50 PT 13.8 Sec. (12.2-14.9) 01/23/20 02:21 INR 1.08 (0.87-1.13) 01/23/20 02:21 APTT 90.0 Sec. (24.2-36.6) H* 01/22/20 21:17 Heparin Anti-Xa Level 0.24 U.I./ml (0.3-0.7) L 01/24/20 19:19 Sodium 146 mmol/L (137-145) H 01/24/20 02:50 Potassium 3.8 mmol/L (3.6-5.0) 01/24/20 02:50 Chloride 111.0 mmol/L (98-107) H 01/24/20 02:50 Carbon Dioxide 24 mmol/L (22-30) 01/24/20 02:50 Anion Gap 15 mmol/L 01/24/20 02:50 BUN 8 mg/dL (7-17) 01/24/20 02:50 Creatinine 0.5 mg/dL (0.6-1.2) L 01/24/20 02:50 Estimated GFR > 60 ml/min 01/24/20 02:50 BUN/Creatinine Ratio 16 % 01/24/20 02:50 Glucose 90 mg/dL (65-100) 01/24/20 02:50 Lactic Acid 0.70 mmol/L (0.7-2.0) 01/23/20 02:21 Calcium 8.0 mg/dL (8.4-10.2) L 01/24/20 02:50 Magnesium 2.00 mg/dL (1.7-2.3) 01/22/20 01:38 Total Bilirubin 0.50 mg/dL (0.1-1.2) 01/22/20 01:38 AST 32 units/L (5-40) 01/22/20 01:38 ALT 40 units/L (7-56) 01/22/20 01:38 Alkaline Phosphatase 157 units/L (35-129) H 01/22/20 01:38 Total Creatine Kinase 70 units/L (30-135) 01/22/20 01:38 Total Protein 6.5 g/dL (6.3-8.2) 01/22/20 01:38 Albumin 3.9 g/dL (3.9-5) 01/22/20 01:38 Albumin/Globulin Ratio 1.5 % 01/22/20 01:38 Lipase 16 units/L (13-60) 01/22/20 01:38 TSH 2.190 mlU/mL (0.270-4.200) 01/24/20 19:19 Urine Color Yellow (Yellow) 01/22/20 04:37 Urine Turbidity Clear (Clear) 01/22/20 04:37 Urine pH 5.0 (5.0-7.0) 01/22/20 04:37 Ur Specific [place] 1.008 (1.003-1.030) 01/22/20 04:37 Urine Protein 30 mg/dl mg/dL (Negative) 01/22/20 04:37 Urine Glucose (UA) Neg mg/dL (Negative) 01/22/20 04:37 Urine Ketones Neg mg/dL (Negative) 01/22/20 04:37 Urine Blood Neg (Negative) 01/22/20 04:37 Urine Nitrite Neg (Negative) 01/22/20 04:37 Urine Bilirubin Neg (Negative) 01/22/20 04:37 Urine Urobilinogen < 2.0 mg/dL (<2.0) 01/22/20 04:37 Ur Leukocyte Esterase Neg (Negative) 01/22/20 04:37 Urine WBC (Auto) 2.0 /HPF (0.0-6.0) 01/22/20 04:37 Urine RBC (Auto) 5.0 /HPF (0.0-6.0) 01/22/20 04:37 U Epithel Cells (Auto) 3.0 /HPF (0-13.0) 01/22/20 04:37 Urine Bacteria (Auto) 1+ /HPF (Negative) 01/22/20 04:37 Urine Mucus 1+ /HPF 01/22/20 04:37 Microbiology: Microbiology 01/22/20 04:43 Peripheral/Venous Blood Culture - Preliminary NO GROWTH AFTER 72 HOURS 01/22/20 04:35 Peripheral/Venous Blood Culture - Preliminary NO GROWTH AFTER 72 HOURS - Diagnostic Impressions Diagnostic Impressions: Echocardiogram 01/23/20 15:23 Transthoracic Echocardiogram Indication: Embolism BP: 117/70 HR: 66 Conclusions *Global left ventricular systolic function is normal. *The estimated ejection fraction is 50-55%. *The left and right atria are both mildly-moderately dilated. *There is mild mitral regurgitation. *There is mild tricuspid regurgitation. *There is mild-moderate pulmonary hypertension. *The right ventricular systolic pressure is calculated at 41 mmHg. Findings Left Ventricle: The left ventricular chamber size is normal. There is no left ventricular hypertrophy. Global left ventricular systolic function is normal. The estimated ejection fraction is 50-55%. Left Atrium: The left atrium is mild to moderately dilated. Right Ventricle: The right ventricular cavity size is normal. The right ventricular global systolic function is normal. Right Atrium: The right atrium is mildly dilated. Aortic Valve: The aortic valve is trileaflet. The aortic valve leaflets are mildly thickened. There is no evidence of aortic regurgitation. There is no evidence of aortic stenosis. Mitral Valve: The mitral valve leaflets are mildly thickened. There is mild mitral regurgitation. There is no evidence of mitral stenosis. Tricuspid Valve: There is mild tricuspid regurgitation. The right ventricular systolic pressure is calculated at 41 mmHg. There is evidence of mild pulmonary hypertension. Pulmonic Valve: There is mild pulmonic regurgitation. Pericardium: There is no pericardial effusion. Aorta: There is no dilatation of the ascending aorta. There is no dilatation of the aortic root. Venous: The inferior vena cava is dilated. Measurements Chambers 2D Name Value Normal Range IVSd (2D) 1.04 cm (0.6 - 1.1) LVPWd (2D) 0.97 cm (0.6 - 1.1) LVIDd (2D) 4.8 cm (3.7 - 5.6) LVIDs (2D) 3.5 cm (2 - 3.8) LV FS (2D) 26.94 % - EF Teichholz (2D) 52.46 % - Ao root diameter (2D) 2.37 cm (2 - 3.7) Volumes/Mass Name Value Normal Range LA ESV SP 4CH (A/L) 54.75 ml - LA ESV SP 2CH (A/L) 43.68 ml - LA ESV BP (A/L) 49.44 ml - LA ESV BP (A/L) index 24 ml/m2 - LA ESV SP 4CH (MOD) 51.75 ml - LA ESV SP 2CH (MOD) 42.31 ml - LA ESV BP (MOD) 47.06 ml - LA ESV BP (MOD) index 22.84 ml/m2 - Diastolic/Systolic Function Name Value Normal Range MV E-wave Vmax 1.22 m/sec - MV deceleration time 187.05 msec - MV A-wave Vmax 0.66 m/sec - MV E:A ratio 1.86 ratio - Aortic Valve Name Value Normal Range AV Vmax 2.08 m/sec - AV VTI 43.32 cm - AV peak gradient 17.36 mmHg - AV mean gradient 8.88 mmHg - LVOT diameter 2.04 cm - LVOT Vmax 1.49 m/sec - LVOT VTI 32.24 cm - LVOT peak gradient 8.94 mmHg - LVOT mean gradient 5.09 mmHg - SV LVOT 105.07 ml - CHRIS (continuity Vmax) 2.34 cm2 - CHRIS (continuity VTI) 2.43 cm2 - Mitral Valve Name Value Normal Range MR Vmax 4.39 m/sec - Tricuspid Valve Name Value Normal Range TR Vmax 2.89 m/sec - TR peak gradient 33 mmHg - RAP 8 mmHg - RVSP 41 mmHg - IVC diameter 2.58 cm (1.2 - 2.3) Pulmonic Valve/Qp:Qs Name Value Normal Range PV Vmax 0.76 m/sec - PV peak gradient 2.34 mmHg - PV acceleration time 83.73 msec - [place]/IV: Voiding Method Bedside Commode IV Catheter Type [Right Peripheral IV Antecubital] Active Medications - Current Medications Current Medications: Generic Name Dose Route Start Last Admin Trade Name Freq PRN Reason Stop Dose Admin Acetaminophen 650 mg 01/22/20 05:47 Tylenol PO Q4H PRN Pain MILD(1-3)/Fever >100.5/RUCKER Hydrocodone Bitart/Acetaminophen 1 each 01/23/20 12:34 01/25/20 06:17 [place] 10/325 PO 1 each Q6H PRN Administration Pain, Moderate (4-6) Apixaban 5 mg 01/25/20 22:00 Eliquis PO Q12HR [facility] Protocol Aspirin 81 mg 01/23/20 10:00 01/25/20 10:15 Halfprin Ec PO 81 mg QDAY ANDRA Administration Atorvastatin Calcium 80 mg 01/25/20 22:00 Lipitor PO QHS ANDRA Diltiazem HCl 120 mg 01/25/20 10:00 Cardizem Cd PO QDAY ANDRA Hydromorphone HCl 1 mg 01/25/20 01:33 01/25/20 10:12 Dilaudid IV 1 mg Q2H PRN Administration Pain , Severe (7-10) Sodium Chloride 1,000 mls @ 125 mls/hr 01/22/20 06:00 01/25/20 06:11 Nacl 0.9% 1000 Ml IV 125 mls/hr DIRECT ANDRA Administration Piperacillin Sod/Tazobactam Sod 4.5 gm in 100 mls @ 200 mls/hr 01/22/20 18:00 01/25/20 02:26 Zosyn/Ns 4.5gm/100ml IV 200 mls/hr Q8H ANDRA Administration Protocol Magnesium Hydroxide 30 ml 01/22/20 05:47 Milk Of Magnesia PO Q4H PRN Constipation Methylprednisolone Sodium Succinate 80 mg 01/24/20 16:00 01/25/20 03:46 Solu-Medrol IV 80 mg Q12H ANDRA Administration Ondansetron HCl 4 mg 01/22/20 05:47 01/23/20 08:12 Zofran IV 4 mg Q8H PRN Administration Nausea And Vomiting Pantoprazole Sodium 40 mg 01/24/20 13:00 01/25/20 08:00 Protonix PO 40 mg BIDAC ANDRA Administration Sodium Chloride 10 ml 01/22/20 10:00 01/25/20 10:15 Sodium Chloride Flush Syringe 10 Ml IV 10 ml BID ANDRA Administration Sodium Chloride 10 ml 01/22/20 05:47 Sodium Chloride Flush Syringe 10 Ml IV PRN PRN LINE FLUSH
[2020-01-25] MEDS ORDERED: dilTIAZem CD 120 MG CAP PO SCH (11:00)
--- NOTE | 2020-01-25 11:03 | Progress Note ---
Assessment and Plan Pt in NSR overnight, no acute events. Convert cardizem Q6H to cardizem CD, initiate Eliquis. Currently stable cardiac status. Pt may tx from CCU to telemetry. The patient has been seen in conjunction with Dr. Taveras who agrees with the assessment and plan of care. - Patient Problems (1) Atrial fibrillation with RVR Current Visit: Yes Status: Acute (2) Abdominal pain Current Visit: Yes Status: Acute Qualifiers: Abdominal location: right upper quadrant Qualified Code(s): R10.11 - Right upper quadrant pain (3) COPD (chronic obstructive pulmonary disease) Current Visit: Yes Status: Chronic Qualifiers: Emphysema type: unspecified (4) Hypertension Current Visit: Yes Status: Chronic Qualifiers: Hypertension type: essential hypertension Qualified Code(s): I10 - Essential (primary) hypertension (5) Renal infarct Current Visit: Yes Status: Acute Subjective Date of service: 01/25/20 Principal diagnosis: abd pain Interval history: pt resting up at bedside, no current cardiac complaints. tele reviewed - in NSR, no events overnight. Objective Last Vital Signs Temp 98.0 F 01/25/20 08:00 Pulse 73 01/25/20 08:01 Resp 12 01/25/20 08:01 BP 118/68 01/25/20 08:01 Pulse Ox 95 01/25/20 08:01 - Physical Examination General: No Apparent Distress HEENT: Positive: PERRL Neck: Positive: neck supple Cardiac: Positive: Reg Rate and Rhythm, S1/S2 Lungs: Positive: Decreased Breath Sounds Neuro: Positive: Grossly Intact Abdomen: Positive: Soft Musculoskeletal: No Pain Extremities: Present: normal - Imaging and Cardiology Echo: report reviewed (Normal LV function mild mitral regurgitation) - Telemetry EKG Rhythm: Sinus Rhythm
--- NOTE | 2020-01-25 11:16 | Progress Note ---
Assessment and Plan 59-year-old female with past medical history of smoking who presents with severe right lower quadrant pain out of proportion with CT scan originally demonstrating right renal infarct and enteritis of the small bowel. Status post mesenteric artery thrombectomy from a percutaneous approach to the left radial artery which was successful with thrombectomy of most of the thrombus. Thrombectomy had to be performed of the middle colic, right colic, SMA, and distal SMA vessel. Heparin drip and baby aspirin currently. Abdominal pain has resolved. Patient able to eat without issue. Doing very well clinically. On protonix for GERD on multiple Thoracic aorta demonstrates ulcerated plaque, likely etiology for showering event. No significant type B dissection noted. Do not recommend aggressive hypertensive management at this time as the risks of hypertensive management outweigh the benefits. No lower extremity or upper extremity ischemia noted. No stroke based on patient's exam. Atrial fibrillation with RVR has resolved and is now normal sinus rhythm. There are there are 2 possibilities for showering event, intermittent atrial fibrillation, and other event is ulcerated plaque of the thoracic aorta. Regardless, needs anticoagulation for life. Personally, I prefer Eliquis with baby aspirin and Protonix for GI protection and GERD issues. Subjective Date of service: 01/25/20 Principal diagnosis: abd pain Interval history: Abdominal pain is essentially resolved. She ate again without discomfort. Epigastric discomfort has resolved with Protonix. Back pain stable. Upper and lower extremities are warm and well perfused. No abdominal pain on palpation. Atrial fibrillation with RVR improved with heart rate in 50s to 60s in normal sinus rhythm. Objective - Constitutional Vitals: Vital Signs - 12hr 01/25/20 01/25/20 01/25/20 00:00 00:04 00:16 Temperature 98.1 F Pulse Rate 64 63 Pulse Rate [ From Monitor] Respiratory Rate Respiratory Rate [Left Hand ] Blood Pressure 112/57 O2 Sat by Pulse 93 Oximetry 01/25/20 01/25/20 01/25/20 00:30 01:00 02:00 Temperature Pulse Rate 65 59 L 57 L Pulse Rate [ From Monitor] Respiratory Rate Respiratory Rate [Left Hand ] Blood Pressure 112/57 99/48 112/56 O2 Sat by Pulse 94 94 Oximetry 01/25/20 01/25/20 01/25/20 02:25 02:26 02:56 Temperature Pulse Rate Pulse Rate [ From Monitor] Respiratory 20 20 Rate Respiratory 20 Rate [Left Hand ] Blood Pressure O2 Sat by Pulse Oximetry 01/25/20 01/25/20 01/25/20 03:00 03:30 04:00 Temperature 97.9 F Pulse Rate 56 L 58 L 58 L Pulse Rate [ 58 L From Monitor] Respiratory Rate Respiratory Rate [Left Hand ] Blood Pressure 104/46 105/49 O2 Sat by Pulse 93 94 Oximetry 01/25/20 01/25/20 01/25/20 05:01 06:00 06:12 Temperature Pulse Rate 57 L 51 L 63 Pulse Rate [ From Monitor] Respiratory Rate Respiratory Rate [Left Hand ] Blood Pressure 131/74 127/73 127/73 O2 Sat by Pulse 94 93 Oximetry 01/25/20 01/25/20 01/25/20 06:17 07:00 07:17 Temperature Pulse Rate 52 L Pulse Rate [ From Monitor] Respiratory 20 17 20 Rate Respiratory Rate [Left Hand ] Blood Pressure 118/68 O2 Sat by Pulse 94 Oximetry 01/25/20 01/25/20 08:00 08:01 Temperature 98.0 F Pulse Rate 73 Pulse Rate [ 74 From Monitor] Respiratory 12 Rate Respiratory Rate [Left Hand ] Blood Pressure 118/68 O2 Sat by Pulse 94 95 Oximetry General appearance: Present: no acute distress - EENT Eyes: EOM intact ENT: hearing intact - Respiratory Respiratory effort: normal Extremities: normal temperature, normal color - Gastrointestinal General gastrointestinal: Present: soft, non-tender - Psychiatric Psychiatric: appropriate mood/affect, cooperative - Labs CBC & Chem 7: 01/24/20 02:50 01/24/20 02:50 Labs: Abnormal lab results 01/24/20 Range/Units 19:19 Heparin Anti-Xa Level 0.24 L (0.3-0.7) U.I./ml Medications & Allergies - Medications Allergies/Adverse Reactions: Allergies No Known Allergies Allergy (Unverified 07/15/15 22:25) Home Medications: Home Medications Medication Instructions Recorded Confirmed Last Taken Type HYDROcodone/APAP 10-325 [[place] 1 each PO Q6HR PRN #20 tablet 07/16/15 01/23/20 Unknown Rx 10-325 mg TAB] AtorvaSTATin [Lipitor] 40 mg PO QHS 01/23/20 01/23/20 Unknown History Carvedilol Phosphate [Carvedilol 40 mg PO BID 01/23/20 01/23/20 Unknown History ER] DULoxetine [Cymbalta] 30 mg PO BID 01/23/20 01/23/20 Unknown History Active Medications: Generic Name Dose Route Start Last Admin Trade Name Freq PRN Reason Stop Dose Admin Acetaminophen 650 mg 01/22/20 05:47 Tylenol PO Q4H PRN Pain MILD(1-3)/Fever >100.5/RUCKER Hydrocodone Bitart/Acetaminophen 1 each 01/23/20 12:34 01/25/20 06:17 [place] 10/325 PO 1 each Q6H PRN Administration Pain, Moderate (4-6) Apixaban 5 mg 01/25/20 22:00 Eliquis PO Q12HR [facility] Protocol Aspirin 81 mg 01/23/20 10:00 01/25/20 10:15 Halfprin Ec PO 81 mg QDAY ANDRA Administration Atorvastatin Calcium 80 mg 01/25/20 22:00 Lipitor PO QHS ANDRA Diltiazem HCl 120 mg 01/25/20 11:00 Cardizem Cd PO QDAY ANDRA Hydromorphone HCl 1 mg 01/25/20 01:33 01/25/20 10:12 Dilaudid IV 1 mg Q2H PRN Administration Pain , Severe (7-10) Sodium Chloride 1,000 mls @ 125 mls/hr 01/22/20 06:00 01/25/20 06:11 Nacl 0.9% 1000 Ml IV 125 mls/hr DIRECT ANDRA Administration Piperacillin Sod/Tazobactam Sod 4.5 gm in 100 mls @ 200 mls/hr 01/22/20 18:00 01/25/20 11:04 Zosyn/Ns 4.5gm/100ml IV 200 mls/hr Q8H ANDRA Administration Protocol Magnesium Hydroxide 30 ml 01/22/20 05:47 Milk Of Magnesia PO Q4H PRN Constipation Methylprednisolone Sodium Succinate 80 mg 01/24/20 16:00 01/25/20 03:46 Solu-Medrol IV 80 mg Q12H ANDRA Administration Ondansetron HCl 4 mg 01/22/20 05:47 01/23/20 08:12 Zofran IV 4 mg Q8H PRN Administration Nausea And Vomiting Pantoprazole Sodium 40 mg 01/24/20 13:00 01/25/20 08:00 Protonix PO 40 mg BIDAC ANDRA Administration Sodium Chloride 10 ml 01/22/20 10:00 01/25/20 10:15 Sodium Chloride Flush Syringe 10 Ml IV 10 ml BID ANDRA Administration Sodium Chloride 10 ml 01/22/20 05:47 Sodium Chloride Flush Syringe 10 Ml IV PRN PRN LINE FLUSH
--- NOTE | 2020-01-25 19:33 | Progress Note ---
Assessment and Plan Pt sadie reg diet with NO abdominal pain at all. HemOnc has set forth anti-coagulation plan and pt undergoing hypercoagulable work-up. Cards f/u arranged/disc with pt Will sign off-- please call if any g[place] issues. No f/u with me necessary. Subjective Date of service: 01/25/20 Patient Reports: Positive: no new complaints, tolerating a regular diet, flatus, bowel movement Objective Vital Signs - 12hr 01/25/20 01/25/20 01/25/20 08:00 08:01 09:00 Temperature 98.0 F Pulse Rate 73 57 L Pulse Rate [ 74 From Monitor] Respiratory 12 21 Rate Blood Pressure 118/68 115/66 O2 Sat by Pulse 94 95 94 Oximetry 01/25/20 01/25/20 01/25/20 10:00 11:00 12:00 Temperature 98.0 F Pulse Rate 56 L 54 L Pulse Rate [ 74 From Monitor] Respiratory 13 Rate Blood Pressure 142/68 144/46 O2 Sat by Pulse 95 96 94 Oximetry 01/25/20 01/25/20 01/25/20 12:01 13:00 14:01 Temperature Pulse Rate 62 63 68 Pulse Rate [ From Monitor] Respiratory 11 L 11 L Rate Blood Pressure 124/81 117/53 113/88 O2 Sat by Pulse 95 97 95 Oximetry 01/25/20 01/25/20 01/25/20 15:00 16:00 17:00 Temperature 97.9 F Pulse Rate 62 78 68 Pulse Rate [ 74 From Monitor] Respiratory 16 18 11 L Rate Blood Pressure 116/52 129/66 116/55 O2 Sat by Pulse 96 94 96 Oximetry 01/25/20 18:01 Temperature Pulse Rate 69 Pulse Rate [ From Monitor] Respiratory 13 Rate Blood Pressure 150/79 O2 Sat by Pulse 96 Oximetry - Abdomen soft, not tender, bowel sounds normal, not distended - Labs 01/24/20 02:50 01/24/20 02:50 Thyroid panel 01/24/20 Range/Units 19:19 TSH 2.190 (0.270-4.200) mlU/mL Pituitary panel 01/24/20 Range/Units 19:19 TSH 2.190 (0.270-4.200) mlU/mL
[2020-01-25] MEDS: ONDANSETRON 4 MG/2 ML INJ IV PRN (19:59)
[2020-01-25 20:29] LABS: Basophils % (Auto) 0.1 % (0.0-1.8); Eosinophils % (Auto) 0.1 % (0.0-4.3); Hematocrit 35.9 % (30.3-42.9); Hemoglobin 12.2 gm/dl (10.1-14.3); Lymphocytes # (Auto) 0.9 K/mm3 (1.2-5.4); Lymphocytes % (Auto) 6.9 % (13.4-35.0); Mean Corpuscular HGB Conc 34 % (30-34); Mean Corpuscular Volume 102 fl (79-97); Monocytes # (Auto) 0.7 K/mm3 (0.0-0.8); Monocytes % (Auto) 5.9 % (0.0-7.3); Platelet Count 143 K/mm3 (140-440); Red Blood Count 3.53 M/mm3 (3.65-5.03); Red Cell Distribution Width 13.4 % (13.2-15.2)
[2020-01-25 20:40] LABS: Blood Urea Nitrogen 13 mg/dL (7-17); Calcium 8.9 mg/dL (8.4-10.2); Hemolysis Index 3
[2020-01-25 20:44] LABS: BUN/Creatinine Ratio 19
[2020-01-25] MEDS: ENOXAPARIN 100 MG/1 ML INJ SUB-Q SCH (21:55)
[2020-01-25] MEDS ORDERED: APIXABAN 5 MG TAB PO SCH (22:00)
--- NOTE | 2020-01-26 02:57 | Hem/Onc Progress Note ---
Subjective Interval history: hematology f/u televisit via [facility] 59yo prev healthy woman with presumed emphysema, now adm for add pain found to have impressive clotting in spleen, R kidney, SMA thrombosis with concern for intestinal ischemia had thrombectomy by invasive vascular procedure recently found to have atrial flutter--now NSR s/p steroid pulse--this correlated with much improvement now she is asking to be discharged; planning transfer out of ICU DATA REVIEWED BELOW IMP: presumed clotting tendency (from my perspective this is arcadio prominent than finding a "source") now with mesenteric and splanchnic thrombosis benefitting from steroid pulse and anticoag elevated LDH likely due to spleen injury high MCV, cause unknown high alk phos, cause unknown PLAN: d/w Dr. Taveras--in my opinion lovenox will help her more than eliquis for now I recommend home "full dose" lovenox for 2 weeks because of clot burden -->then xarelto 20mg daily (easier) or eliquis 5mg po bid Ok to combine DOAC with aspirin cont steroid pulse because of pain related to spleen inflammation steroid taper to off before discharge labs to include clot mutation testing, cardiolipin ab counseler her about smoking cessation I will try for outpt televisit hematology f/u Vital Signs Temp Pulse Resp BP Pulse Ox 98.0 F 71 16 130/87 94 01/25/20 23:34 01/25/20 23:34 01/25/20 23:34 01/25/20 23:34 01/25/20 23:34 Temperature -Last 24 Hours Temperature 98.0 F Temperature 98.4 F Temperature 97.9 F Temperature 98.0 F Temperature 98.0 F Temperature 97.9 F Active Medications Acetaminophen (Tylenol) 650 mg PO Q4H PRN PRN Reason: Pain MILD(1-3)/Fever >100.5/RUCKER Hydrocodone Bitart/Acetaminophen (Levan 10/325) 1 each PO Q6H PRN PRN Reason: Pain, Moderate (4-6) Last Admin: 01/25/20 21:53 Dose: 1 each Documented by: Aspirin (Halfprin Ec) 81 mg PO QDAY [facility] Last Admin: 01/25/20 10:15 Dose: 81 mg Documented by: Atorvastatin Calcium (Lipitor) 80 mg PO QHS [facility] Last Admin: 01/25/20 21:54 Dose: 80 mg Documented by: Diltiazem HCl (Cardizem Cd) 120 mg PO QDAY ANDRA Enoxaparin Sodium (Enoxaparin) 100 mg SUB-Q Q12HR [facility]; Protocol Last Admin: 01/25/20 21:55 Dose: 100 mg Documented by: Hydromorphone HCl (Dilaudid) 1 mg IV Q2H PRN PRN Reason: Pain , Severe (7-10) Last Admin: 01/25/20 18:34 Dose: 1 mg Documented by: Sodium Chloride (Nacl 0.9% 1000 Ml) 1,000 mls @ 125 mls/hr IV DIRECT ANDRA Last Admin: 01/25/20 06:11 Dose: 125 mls/hr Documented by: Piperacillin Sod/Tazobactam Sod (Zosyn/Ns 4.5gm/100ml) 4.5 gm in 100 mls @ 200 mls/hr IV Q8H [facility]; Protocol Last Admin: 01/25/20 17:28 Dose: 200 mls/hr Documented by: Magnesium Hydroxide (Milk Of Magnesia) 30 ml PO Q4H PRN PRN Reason: Constipation Methylprednisolone Sodium Succinate (Solu-Medrol) 80 mg IV Q12H [facility] Last Admin: 01/25/20 16:18 Dose: 80 mg Documented by: Ondansetron HCl (Zofran) 4 mg IV Q8H PRN PRN Reason: Nausea And Vomiting Last Admin: 01/25/20 19:59 Dose: 4 mg Documented by: Pantoprazole Sodium (Protonix) 40 mg PO BIDAC [facility] Last Admin: 01/25/20 16:17 Dose: 40 mg Documented by: Sodium Chloride (Sodium Chloride Flush Syringe 10 Ml) 10 ml IV BID [facility] Last Admin: 01/25/20 10:15 Dose: 10 ml Documented by: Sodium Chloride (Sodium Chloride Flush Syringe 10 Ml) 10 ml IV PRN PRN PRN Reason: LINE FLUSH Laboratory Last Values WBC 12.6 K/mm3 (4.5-11.0) H 01/25/20 20:04 Hgb 12.2 gm/dl (10.1-14.3) 01/25/20 20:04 Hct 35.9 % (30.3-42.9) 01/25/20 20:04 MCV 102 fl (79-97) H 01/25/20 20:04 Plt Count 143 K/mm3 (140-440) 01/25/20 20:04 Seg Neutrophils % 87.0 % (40.0-70.0) H 01/25/20 20:04 Seg Neutrophils # 11.0 K/mm3 (1.8-7.7) H 01/25/20 20:04 Creatinine 0.7 mg/dL (0.6-1.2) 01/25/20 20:04 Calcium 8.9 mg/dL (8.4-10.2) 01/25/20 20:04 Alkaline Phosphatase 157 units/L (35-129) H 01/22/20 01:38 Lactate Dehydrogenase 245 units/L (91-180) H 01/25/20 20:04 Direct Antiglob Test Negative 01/25/20 20:04 AMY, Poly Interpret Negative 01/25/20 20:04 Objective - Constitutional Vitals: Last Vital Signs Temp 98.0 F 01/25/20 23:34 Pulse 71 01/25/20 23:34 Resp 16 01/25/20 23:34 BP 130/87 01/25/20 23:34 Pulse Ox 94 01/25/20 23:34 - Labs Lab Results: Laboratory Results - last 24 hr 01/25/20 01/25/20 01/25/20 20:04 20:04 20:04 WBC 12.6 H RBC 3.53 L Hgb 12.2 Hct 35.9 MCV 102 H MCH 35 H MCHC 34 RDW 13.4 Plt Count 143 Lymph % (Auto) 6.9 L Jay % (Auto) 5.9 Eos % (Auto) 0.1 Baso % (Auto) 0.1 Lymph # (Auto) 0.9 L Jay # (Auto) 0.7 Eos # (Auto) 0.0 Baso # (Auto) 0.0 Seg Neutrophils % 87.0 H Seg Neutrophils # 11.0 H Sodium 144 Potassium 3.8 Chloride 110.2 H Carbon Dioxide 22 Anion Gap 16 BUN 13 Creatinine 0.7 Estimated GFR > 60 BUN/Creatinine Ratio 19 Glucose 187 H Calcium 8.9 Lactate Dehydrogenase 245 H Direct Antiglob Test AMY, Poly Interpret 01/25/20 20:04 WBC RBC Hgb Hct MCV MCH MCHC RDW Plt Count Lymph % (Auto) Jay % (Auto) Eos % (Auto) Baso % (Auto) Lymph # (Auto) Jay # (Auto) Eos # (Auto) Baso # (Auto) Seg Neutrophils % Seg Neutrophils # Sodium Potassium Chloride Carbon Dioxide Anion Gap BUN Creatinine Estimated GFR BUN/Creatinine Ratio Glucose Calcium Lactate Dehydrogenase Direct Antiglob Test Negative AMY, Poly Interpret Negative Medications & Allergies - Medications Allergies/Adverse Reactions: Allergies No Known Allergies Allergy (Unverified 07/15/15 22:25) Home Medications: Home Medications Medication Instructions Recorded Confirmed Last Taken Type HYDROcodone/APAP 10-325 [Levan 1 each PO Q6HR PRN #20 tablet 07/16/15 01/23/20 Unknown Rx 10-325 mg TAB] AtorvaSTATin [Lipitor] 40 mg PO QHS 01/23/20 01/23/20 Unknown History Carvedilol Phosphate [Carvedilol 40 mg PO BID 01/23/20 01/23/20 Unknown History ER] DULoxetine [Cymbalta] 30 mg PO BID 01/23/20 01/23/20 Unknown History Active Medications: Generic Name Dose Route Start Last Admin Trade Name Freq PRN Reason Stop Dose Admin Acetaminophen 650 mg 01/22/20 05:47 Tylenol PO Q4H PRN Pain MILD(1-3)/Fever >100.5/RUCKER Hydrocodone Bitart/Acetaminophen 1 each 01/23/20 12:34 01/25/20 21:53 Levan 10/325 PO 1 each Q6H PRN Administration Pain, Moderate (4-6) Aspirin 81 mg 01/23/20 10:00 01/25/20 10:15 Halfprin Ec PO 81 mg QDAY ANDRA Administration Atorvastatin Calcium 80 mg 01/25/20 22:00 01/25/20 21:54 Lipitor PO 80 mg QHS ANDRA Administration Diltiazem HCl 120 mg 01/26/20 10:00 Cardizem Cd PO QDAY ANDRA Enoxaparin Sodium 100 mg 01/25/20 22:00 01/25/20 21:55 Enoxaparin SUB-Q 100 mg Q12HR ANDRA Administration Protocol Hydromorphone HCl 1 mg 01/25/20 01:33 01/25/20 18:34 Dilaudid IV 1 mg Q2H PRN Administration Pain , Severe (7-10) Sodium Chloride 1,000 mls @ 125 mls/hr 01/22/20 06:00 01/25/20 06:11 Nacl 0.9% 1000 Ml IV 125 mls/hr DIRECT ANDRA Administration Piperacillin Sod/Tazobactam Sod 4.5 gm in 100 mls @ 200 mls/hr 01/22/20 18:00 01/25/20 17:28 Zosyn/Ns 4.5gm/100ml IV 200 mls/hr Q8H ANDRA Administration Protocol Magnesium Hydroxide 30 ml 01/22/20 05:47 Milk Of Magnesia PO Q4H PRN Constipation Methylprednisolone Sodium Succinate 80 mg 01/24/20 16:00 01/25/20 16:18 Solu-Medrol IV 80 mg Q12H ANDRA Administration Ondansetron HCl 4 mg 01/22/20 05:47 01/25/20 19:59 Zofran IV 4 mg Q8H PRN Administration Nausea And Vomiting Pantoprazole Sodium 40 mg 01/24/20 13:00 01/25/20 16:17 Protonix PO 40 mg BIDAC ANDRA Administration Sodium Chloride 10 ml 01/22/20 10:00 01/25/20 10:15 Sodium Chloride Flush Syringe 10 Ml IV 10 ml BID ANDRA Administration Sodium Chloride 10 ml 01/22/20 05:47 Sodium Chloride Flush Syringe 10 Ml IV PRN PRN LINE FLUSH
[2020-01-26] MEDS: PIPERACIL/TAZOBACTA 4.5/NS 100 4.5 GM/100 ML VIAL IV SCH ×2 (03:16→11:28)
[2020-01-26] MEDS: HYDROmorphone 1 MG/1 ML INJ IV PRN (03:16)
[2020-01-26 05:17] LABS: Basophils % (Auto) 0.1 % (0.0-1.8); Hematocrit 35.7 % (30.3-42.9); Hemoglobin 12.1 gm/dl (10.1-14.3); Lymphocytes # (Auto) 1.1 K/mm3 (1.2-5.4); Lymphocytes % (Auto) 8.4 % (13.4-35.0); Mean Corpuscular HGB Conc 34 % (30-34); Mean Corpuscular Volume 101 fl (79-97); Monocytes # (Auto) 0.7 K/mm3 (0.0-0.8); Monocytes % (Auto) 5.5 % (0.0-7.3); Platelet Count 151 K/mm3 (140-440); Red Blood Count 3.54 M/mm3 (3.65-5.03); Red Cell Distribution Width 14.1 % (13.2-15.2)
[2020-01-26 05:28] LABS: Blood Urea Nitrogen 13 mg/dL (7-17); Calcium 8.5 mg/dL (8.4-10.2); Hemolysis Index 2
[2020-01-26 05:45] LABS: BUN/Creatinine Ratio 22
--- NOTE | 2020-01-26 09:35 | Progress Note ---
Assessment and Plan Currently stable cardiac status. Pt may discharge from cardiology standpoint. At discharge, cont cardizem CD. D/w hematology - recommends Lovenox 100mg BID x 1 week and then transition to Eliquis 5mg BID. Follow up in our [place] office with Dr. Taveras on 02/07/2020 @ 10:00AM. The patient has been seen in conjunction with Dr. Taveras who agrees with the assessment and plan of care. - Patient Problems (1) Atrial fibrillation with RVR Current Visit: Yes Status: Acute (2) Abdominal pain Current Visit: Yes Status: Acute Qualifiers: Abdominal location: right upper quadrant Qualified Code(s): R10.11 - Right upper quadrant pain (3) COPD (chronic obstructive pulmonary disease) Current Visit: Yes Status: Chronic Qualifiers: Emphysema type: unspecified (4) Hypertension Current Visit: Yes Status: Chronic Qualifiers: Hypertension type: essential hypertension Qualified Code(s): I10 - Essential (primary) hypertension (5) Renal infarct Current Visit: Yes Status: Acute Subjective Date of service: 01/26/20 Principal diagnosis: abd pain Interval history: pt resting up at bedside, no current cardiac complaints. tele reviewed - in NSR. Objective Last Vital Signs Temp 97.5 F L 01/26/20 03:53 Pulse 60 01/26/20 08:45 Resp 16 01/26/20 03:53 BP 140/69 01/26/20 03:53 Pulse Ox 96 01/26/20 03:53 - Physical Examination General: No Apparent Distress HEENT: Positive: PERRL Neck: Positive: neck supple Cardiac: Positive: Reg Rate and Rhythm, S1/S2 Lungs: Positive: Decreased Breath Sounds Neuro: Positive: Grossly Intact Abdomen: Positive: Soft Musculoskeletal: No Pain Extremities: Present: normal - Labs and Meds Cardiac Enzymes 01/25/20 01/26/20 Range/Units 20:04 04:36 Lactate Dehydrogenase 245 H 232 H (91-180) units/L CBC 01/25/20 01/26/20 Range/Units 20:04 04:36 WBC 12.6 H 13.1 H (4.5-11.0) K/mm3 RBC 3.53 L 3.54 L (3.65-5.03) M/mm3 Hgb 12.2 12.1 (10.1-14.3) gm/dl Hct 35.9 35.7 (30.3-42.9) % Plt Count 143 151 (140-440) K/mm3 Lymph # (Auto) 0.9 L 1.1 L (1.2-5.4) K/mm3 [place] # (Auto) 0.7 0.7 (0.0-0.8) K/mm3 Eos # (Auto) 0.0 0.0 (0.0-0.4) K/mm3 Baso # (Auto) 0.0 0.0 (0.0-0.1) K/mm3 Comprehensive Metabolic Panel 01/25/20 01/26/20 Range/Units 20:04 04:36 Sodium 144 146 H (137-145) mmol/L Potassium 3.8 3.8 (3.6-5.0) mmol/L Chloride 110.2 H 112.2 H (98-107) mmol/L Carbon Dioxide 22 24 (22-30) mmol/L BUN 13 13 (7-17) mg/dL Creatinine 0.7 0.6 (0.6-1.2) mg/dL Glucose 187 H 132 H (65-100) mg/dL Calcium 8.9 8.5 (8.4-10.2) mg/dL - Imaging and Cardiology Echo: report reviewed (Normal LV function mild mitral regurgitation) - Telemetry EKG Rhythm: Sinus Rhythm
[2020-01-26] MEDS ORDERED: dilTIAZem CD 120 MG CAP PO SCH (10:00)
[2020-01-26] MEDS ORDERED: methylPREDNISolone Sod Succinate 40 MG/1 ML INJ IV ONE (10:00)
[2020-01-26] MEDS: ENOXAPARIN 100 MG/1 ML INJ SUB-Q SCH (10:38)
[2020-01-26] MEDS: PANTOPRAZOLE 40 MG TAB PO SCH (10:39)
[2020-01-26] MEDS: ASPIRIN EC 81 MG TAB PO SCH (10:39)
[2020-01-26 10:40] VITALS: BP 151/76
--- NOTE | 2020-01-26 10:56 | Discharge Summary ---
Providers - Providers Date of Admission: 01/24/20 08:51 Date of discharge: 01/26/20 Attending physician: JOHN PARRA 01/22/20 09:05 Consult to Physician [CONS] Routine Comment: Consulting Provider: RALPH BETHEA Physician Instructions: Reason For Exam: renal infarct 01/22/20 09:06 Consult to Physician [CONS] Routine Comment: Consulting Provider: GRACIE ORONA Physician Instructions: Reason For Exam: abd pain 01/22/20 12:00 Consult to Physician [CONS] Routine Comment: Consulting Provider: ERVIN GOLD Physician Instructions: Reason For Exam: ? renal infarct 01/22/20 17:03 Consult to Physician [CONS] Stat Comment: Consulting Provider: TARA DORAN Physician Instructions: Reason For Exam: mesenteric infarct/ischemia 01/23/20 14:12 Consult to Physician [CONS] Routine Comment: Consulting Provider: MANUEL KINSEY Physician Instructions: Reason For Exam: critical care 01/24/20 10:42 Consult to Physician [CONS] Routine Comment: spoke with dr. rey/ lamine Consulting Provider: DON REY Physician Instructions: Reason For Exam: hypercoagulable work up 01/24/20 16:41 Consult to Cardiology [CONS] Routine Consulting Provider: MARKUS WILLSON Reason For Exam: new onset A-fib with RVR 01/26/20 03:00 Consult to Case Management [CONS] Routine Services Needed at Discharge: Home Health Services Notified:: case briefer Comment:: home lovenox 100mg bid x 2 weeks Primary care physician: MEDIA TRAFFIC MANAGER Hospitalization Condition: Good Hospital course: 59-year-old white female with known history of hypertension, hyperlipidemia, COPD and fibromyalgia presenting to the emergency room today complaining of generalized abdominal pain. Pain started about 6 to 8 hours prior to reporting to the emergency room. Pain is said to be more in the right upper quadrant radiating to the right flank and the back. She has had associated nausea and vomiting and also had an episode of diarrhea. She has had multiple episodes of nausea and vomiting. She denies any fever or chills, no chest pain or shortness of breath, no headache or dizziness, no hematuria or dysuria, denies any sick contacts and no recent travel. Denies any contact with anyone with COVID-19. Work-up in the emergency room today reveals leukocytosis of 14. CT of the abdomen and pelvis was remarkable for right renal infarction with enteritis. CTA abdomen and pelvis showed splenic and SMA thrombosis. Surgery and vascular surgery was consulted. She had thrombectomy of the SMA and has been an ticoagulation. Hospital course was complicated with atrial fibrillation with RVR which resolved and she is now on cardizem. Her abdominal CTA was read to have possible tiny intimal dissection of the descending aorta. I discussed with vascular and he says its an ulcerated plaque after review of images. Currently, patients pain has resolved. Her atrial fibrillation has converted to sinus. She will continue lovenox injections for a week after which she will switch to eliquis. She will continue aspirin and PPI. She will need to follow up with cardiology, vascular surgery in 2-4 weeks. I have gone through the instructions with her and she verbalizes understanding. 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 GENERAL: Awake and alert on response to questions HEAD: No signs of head trauma. EYES: Pupils are equal. Extraocular motions intact. EARS: Hearing grossly intact. MOUTH: Oropharynx is normal. NECK: No adenopathy, no JVD. CHEST: Chest with diminished breath sounds bilaterally. No wheezes, rales, or rhonchi. CARDIAC: Regular rate and rhythm. S1 and S2, without murmurs, gallops, or rubs. VASCULAR: No Edema. Peripheral pulses normal and equal in all extremities. ABDOMEN: Soft, non tender and non distended. No rebound or guarding, and no masses palpated. Bowel Sounds normal. MUSCULOSKELETAL: Good range of motion of all major joints. Extremities without clubbing, cyanosis or edema. NEUROLOGIC EXAM: Alert and oriented x3. No focal neurologic deficits PSYCHIATRIC: Stable mood SKIN: No obvious lesions - Constitutional Vitals: Temp Pulse Resp BP Pulse Ox 98.0 F 64 18 151/76 94 01/26/20 09:04 01/26/20 09:04 01/26/20 09:04 01/26/20 09:04 01/26/20 09:04 Plan Activity: no restrictions Diet: low fat, low salt Additional Instructions: Continue lovenox injections twice daily (take last dose on 02/01/2020 Evening). START ELIQUIS 5MG TWICE DAILY FROM 02/02/2020 MORNING. Continue aspirin and pantoprazole. Follow up with cardiology (Dr Taveras) on 02/07/2020 at 10am and vascular surgery (Dr Gold) in 2- 4 weeks. Hematology will schedule outpatient televisit with you Follow up with: PRIMARY CARE, [Primary Care Provider] - 3-5 Days FRANCISCO TAVERAS MD [Staff Physician] - 7 Days ERVIN GOLD MD [Staff Physician] - 7 Days Prescriptions: AtorvaSTATin [Lipitor] 80 mg PO QHS #60 tablet [id number] CD [Cardizem CD] 120 mg PO QDAY #30 capsule Apixaban [Eliquis] 5 mg PO BID #60 tablet Enoxaparin 100 mg SUB-Q Q12HR #14 syringe Aspirin EC [Halfprin EC] 81 mg PO QDAY #30 tablet Pantoprazole [Protonix TAB] 40 mg PO BIDAC #120 tablet
--- NOTE | 2020-01-26 12:06 | Event Note ---
Date: 01/26/20 F/u appt updated: [place] office with Dr. Taveras, 02/10/2020 @ 10:30AM. Patrice GALDAMEZ NP / DR. TAVERAS
--- NOTE | 2020-01-26 14:55 | Progress Note ---
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 She is tolerating a diet without abdominal pain and is tolerating oral anticoagulation without bleeding. Okay to discharge from a surgical standpoint. Follow-up with Dr. Lg Suárez in our office in 2 to 4 weeks. Subjective Date of service: 01/26/20 Principal diagnosis: abd pain Interval history: Patient is eating without any complaints. She denies any abdominal pain or bloody bowel movements. Objective - Constitutional Vitals: Vital Signs - 12hr 01/26/20 01/26/20 01/26/20 03:00 03:16 03:53 Temperature 97.5 F L Pulse Rate 67 68 Respiratory 20 16 Rate Blood Pressure 140/69 O2 Sat by Pulse 96 Oximetry 01/26/20 01/26/20 08:45 09:04 Temperature 98.0 F Pulse Rate 60 64 Respiratory 18 Rate Blood Pressure 151/76 O2 Sat by Pulse 94 Oximetry - Gastrointestinal General gastrointestinal: Present: soft, non-tender, non-distended - Labs CBC & Chem 7: 01/26/20 04:36 01/26/20 04:36 Labs: Abnormal lab results 01/25/20 01/25/20 01/25/20 Range/Units 20:04 20:04 20:04 WBC 12.6 H (4.5-11.0) K/mm3 RBC 3.53 L (3.65-5.03) M/mm3 MCV 102 H (79-97) fl MCH 35 H (28-32) pg Lymph % (Auto) 6.9 L (13.4-35.0) % Lymph # (Auto) 0.9 L (1.2-5.4) K/mm3 Seg Neutrophils % 87.0 H (40.0-70.0) % Seg Neutrophils # 11.0 H (1.8-7.7) K/mm3 Sodium (137-145) mmol/L Chloride 110.2 H (98-107) mmol/L Glucose 187 H (65-100) mg/dL Lactate Dehydrogenase 245 H (91-180) units/L 01/26/20 01/26/20 01/26/20 Range/Units 04:36 04:36 04:36 WBC 13.1 H (4.5-11.0) K/mm3 RBC 3.54 L (3.65-5.03) M/mm3 MCV 101 H (79-97) fl MCH 34 H (28-32) pg Lymph % (Auto) 8.4 L (13.4-35.0) % Lymph # (Auto) 1.1 L (1.2-5.4) K/mm3 Seg Neutrophils % 86.0 H (40.0-70.0) % Seg Neutrophils # 11.2 H (1.8-7.7) K/mm3 Sodium 146 H (137-145) mmol/L Chloride 112.2 H (98-107) mmol/L Glucose 132 H (65-100) mg/dL Lactate Dehydrogenase 232 H (91-180) units/L Medications & Allergies - Medications Allergies/Adverse Reactions: Allergies No Known Allergies Allergy (Unverified 07/15/15 22:25) Home Medications: Home Medications Medication Instructions Recorded Confirmed Last Taken Type DULoxetine [Cymbalta] 30 mg PO BID 01/23/20 01/23/20 Unknown History Apixaban [Eliquis] 5 mg PO BID #60 tablet 01/26/20 Unknown Rx Aspirin EC [Halfprin EC] 81 mg PO QDAY #30 tablet 01/26/20 Unknown Rx AtorvaSTATin [Lipitor] 80 mg PO QHS #60 tablet 01/26/20 Unknown Rx Enoxaparin 100 mg SUB-Q Q12HR #14 syringe 01/26/20 Unknown Rx Pantoprazole [Protonix TAB] 40 mg PO BIDAC #120 tablet 01/26/20 Unknown Rx dilTIAZem CD [Cardizem CD] 120 mg PO QDAY #30 capsule 01/26/20 Unknown Rx Active Medications: Generic Name Dose Route Start Last Admin Trade Name Kathrine PRN Reason Stop Dose Admin Acetaminophen 650 mg 01/22/20 05:47 Tylenol PO Q4H PRN Pain MILD(1-3)/Fever >100.5/RUCKER Hydrocodone Bitart/Acetaminophen 1 each 01/23/20 12:34 01/25/20 21:53 [place] 10/325 PO 1 each Q6H PRN Administration Pain, Moderate (4-6) Aspirin 81 mg 01/23/20 10:00 01/26/20 10:39 Halfprin Ec PO 81 mg QDAY ANDRA Administration Atorvastatin Calcium 80 mg 01/25/20 22:00 01/25/20 21:54 Lipitor PO 80 mg QHS ANDRA Administration Diltiazem HCl 120 mg 01/26/20 10:00 01/26/20 10:39 Cardizem Cd PO 120 mg QDAY ANDRA Administration Enoxaparin Sodium 100 mg 01/25/20 22:00 01/26/20 10:38 Enoxaparin SUB-Q 100 mg Q12HR ANDRA Administration Protocol Hydromorphone HCl 1 mg 01/25/20 01:33 01/26/20 03:16 Dilaudid IV 1 mg Q2H PRN Administration Pain , Severe (7-10) Sodium Chloride 1,000 mls @ 125 mls/hr 01/22/20 06:00 01/25/20 06:11 Nacl 0.9% 1000 Ml IV 125 mls/hr DIRECT ANDRA Administration Piperacillin Sod/Tazobactam Sod 4.5 gm in 100 mls @ 200 mls/hr 01/22/20 18:00 01/26/20 11:28 Zosyn/Ns 4.5gm/100ml IV Not Given Q8H [facility] Protocol Magnesium Hydroxide 30 ml 01/22/20 05:47 Milk Of Magnesia PO Q4H PRN Constipation Ondansetron HCl 4 mg 01/22/20 05:47 01/25/20 19:59 Zofran IV 4 mg Q8H PRN Administration Nausea And Vomiting Pantoprazole Sodium 40 mg 01/24/20 13:00 01/26/20 10:39 Protonix PO 40 mg BIDAC ANDRA Administration Sodium Chloride 10 ml 01/22/20 10:00 01/26/20 10:39 Sodium Chloride Flush Syringe 10 Ml IV 10 ml BID ANDRA Administration Sodium Chloride 10 ml 01/22/20 05:47 Sodium Chloride Flush Syringe 10 Ml IV PRN PRN LINE FLUSH
== END 2020-01-26 16:48 | disposition home or self-care (01) | DRG 357 ==
LOC: ED 23:41 → 4A 01-22 05:28 → CC1 01-22 20:19 → 4A 01-23 19:58 → IMCU 01-23 21:16 → OBSVTOIN 01-24 08:51 → 4A 01-25 18:52
PROVIDERS: ADMIT Internal Medicine Geriatric Medicine; ATTEND Internal Medicine
PROC: 04C53ZZ Extirpation of Matter from Superior Mesenteric Artery, Percutaneous Approach (ICD-10-PCS; principal; 2020-01-22)
PROC: 3E05317 Introduction of Other Thrombolytic into Peripheral Artery, Percutaneous Approach (ICD-10-PCS; 2020-01-22)
PROC: 04C Lower Arteries, Extirpation (ICD-10-PCS; 2020-01-22)
PROC: 04C Lower Arteries, Extirpation (ICD-10-PCS; 2020-01-22)
PROC: B4141ZZ Fluoroscopy of Superior Mesenteric Artery using Low Osmolar Contrast (ICD-10-PCS; 2020-01-22)
PROC: B41B1ZZ Fluoroscopy of Other Intra-Abdominal Arteries using Low Osmolar Contrast (ICD-10-PCS; 2020-01-22)
DX: K55.041 Focal (segmental) acute infarction of large intestine (principal); N28.0 Ischemia and infarction of kidney; I48.20 Chronic atrial fibrillation, unspecified; K55.9 Vascular disorder of intestine, unspecified; I10 Essential (primary) hypertension; M19.90 Unspecified osteoarthritis, unspecified site; J44.9 Chronic obstructive pulmonary disease, unspecified; M79.7 Fibromyalgia; F17.200 Nicotine dependence, unspecified, uncomplicated; Z90.710 Acquired absence of both cervix and uterus; E66.9 Obesity, unspecified; Z68.38 Body mass index [BMI] 38.0-38.9, adult; E78.5 Hyperlipidemia, unspecified; D72.829 Elevated white blood cell count, unspecified; D73.5 Infarction of spleen; G89.29 Other chronic pain; M54.9 Dorsalgia, unspecified
CPT/HCPCS: 36245; 36415; 37184; 71275; 74174; 74177; 75726; 76705; 80048; 80053; 81001; 82140; 82550; 83615; 83690; 83735; 84443; 85014; 85018; 85025; 85520; 85610; 85730; 86880; 87040; 93005; 93306; 96365; 96375; G0378; A9270-GY; C1769; C1887; C1894; C9113; J1170; J1644; J1650; J1956; J2250; J2405; J2543; J2920; J2930; J2997; J3010; J7030; J7040; Q9967